=== PATIENT | female | born 1930 | race Caucasian/White ===

== ENCOUNTER 2017-03-19 12:08 | Emergency (ER) | payer MEDICARE ==
[2017-03-19 12:14] VITALS: TEMP 97.1
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
--- NOTE | 2017-03-19 12:56 | XR ---
EXAMINATION TYPE: XR chest 2V DATE OF EXAM: 03/19/2017 COMPARISON: 06/13/2015 HISTORY: Shortness of breath TECHNIQUE: Frontal and lateral views of the chest are obtained. FINDINGS: Scattered senescent parenchymal changes noted. Hyperinflation compatible with COPD. No evidence for infiltrate. No evidence for atelectasis. Chronic elevation right hemidiaphragm. Heart size is stable. Mediastinal structures are stable and grossly unremarkable. No evidence for hilar prominence. Degenerative changes dorsal spine. IMPRESSION: 1. No evidence for acute pulmonary disease.
[2017-03-19] MEDS ORDERED: HYDROcodone/APAP 5-325MG 1 EACH TAB PO STA (13:01)
[2017-03-19 13:09] VITALS: BP 164/79; PULSE 84; RESP 16
== END 2017-03-19 13:03 | disposition home or self-care (01) ==
LOC: EC 12:08
DX: R07.89 Other chest pain (principal); F41.9 Anxiety disorder, unspecified; K21.9 Gastro-esophageal reflux disease without esophagitis; E78.5 Hyperlipidemia, unspecified; I10 Essential (primary) hypertension; E07.9 Disorder of thyroid, unspecified; F32.9 Major depressive disorder, single episode, unspecified; Z79.82 Long term (current) use of aspirin; Z79.899 Other long term (current) drug therapy; Z88.5 Allergy status to narcotic agent; V49.9XXA Car occupant (driver) (passenger) injured in unspecified traffic accident, initial encounter; Y92.410 Unspecified street and highway as the place of occurrence of the external cause
CPT/HCPCS: 71020; 99284

== ENCOUNTER → 2018-01-01 | Outpatient (CLI) | payer MEDICARE, OTHER ==
[~2018-01-01] MED LIST: SODIUM CHLORIDE 0.9% 500 ML in EMPTY BAG 1 BAG IV PRN; ZOLEDRONIC ACID 5 MG in SODIUM CHLORIDE 0.9% 100 ML IV NR
[2018-01-01 11:10] VITALS: BP 134/77; PULSE 85; RESP 16; TEMP 97.7
== END | disposition home or self-care (01) ==
LOC: PROCWHC3 10:50
PROVIDERS: ATTEND Family Medicine
DX: M81.0 Age-related osteoporosis without current pathological fracture (principal)
CPT/HCPCS: 96365; J3489

== ENCOUNTER 2018-11-06 14:03 | Inpatient (IN) | payer MEDICARE ==
[2018-11-06] MEDS ORDERED: MORPHINE SULFATE 2 MG/ML SYRINGE IM STA (15:03)
[2018-11-06] MEDS ORDERED: ONDANSETRON ODT 4 MG TAB PO STA (15:06)
--- NOTE | 2018-11-06 15:11 | ED ---
Back Pain HPI - General Chief Complaint: Back Pain/Injury Stated Complaint: Back pain Time Seen by Provider: 11/06/18 14:55 Source: patient Limitations: physical limitation - History of Present Illness Initial Comments: Patient is a 88-year-old female here with her daughter presenting with complaints of low back pain for almost 2 weeks. Patient has history of severe osteoporosis and states she has had numerous fractures of her lumbar spine and also has a plate and screws in her lumbar area. Patient states she went to lift a jug of juice on October 25 and has been having increasing pain since then. Patient has been trying to take tramadol and Tylenol for pain relief and they are not helping. Patient is getting to the point where she is no longer eating, drinking, sleeping very much because of the pain. Patient admits to her toes feeling "a little different". Patient denies any numbness and tingling into her lower legs or loss of bladder/ bowel control. Patient denies fever, chills, nausea, vomiting. No other complaints at this time. - Related Data Home Medications Medication Instructions Recorded Confirmed Lovastatin [Mevacor] 20 mg PO HS 01/06/14 11/06/18 Aspirin 81 mg PO HS 06/15/15 11/06/18 Multivit with Calcium,Iron,Min 1 tab PO DAILY 06/15/15 11/06/18 [Women's Daily Multivitamin] Acetaminophen/Diphenhydramine 1 tab PO HS PRN 03/19/17 11/06/18 [Tylenol PM 500-25mg] Levothyroxine Sodium [Synthroid] 100 mcg PO DAILY 03/19/17 11/06/18 amLODIPine BESYLATE [Norvasc] 10 mg PO DAILY 03/19/17 11/06/18 Omeprazole 20 mg PO DAILY 11/06/18 11/06/18 Allergies Allergy/AdvReac Type Severity Reaction Status Date / Time codeine AdvReac Hallucinati Verified 11/06/18 15:25 ons Review of Systems ROS Statement: Those systems with pertinent positive or pertinent negative responses have been documented in the HPI. ROS Other: All systems not noted in ROS Statement are negative. Past Medical History Past Medical History: GERD/Reflux, Hyperlipidemia, Hypertension, Thyroid Disorder Additional Past Medical History / Comment(s): T11 compression fx 05-22-15,osteoporsis History of Any Multi-Drug Resistant Organisms: None Reported Past Surgical History: Back Surgery Additional Past Surgical History / Comment(s): ORIF Lt wrist, spinal fusion,lumbar laminectomy,addison cataract, 06-18-15 KYPHOPLASTY. Past Anesthesia/Blood Transfusion Reactions: No Reported Reaction Additional Past Anesthesia/Blood Transfusion Reaction / Comment(s): no hx blood transfusion Past Psychological History: Anxiety, Depression Smoking Status: Former smoker Past Alcohol Use History: None Reported Past Drug Use History: None Reported - Past Family History Son(s) Additional Family Medical History / Comment(s): after tonsil surgery as a child Mother Family Medical History: Cancer, CVA/TIA, Diabetes Mellitus, Thyroid Disorder Additional Family Medical History / Comment(s): heart problems Father Family Medical History: Diabetes Mellitus Additional Family Medical History / Comment(s): heart problems General Exam - General Exam Comments Initial Comments: GENERAL: Well-appearing, well-nourished and in no acute distress, but appears in pain. HEAD: Atraumatic, normocephalic. EYES: Pupils equal round and reactive to light, extraocular movements intact, sclera anicteric, conjunctiva are normal. ENT: TMs normal, nares patent, oropharynx clear without exudates. Moist mucous membranes. NECK: Normal range of motion, supple without lymphadenopathy or JVD. LUNGS: Breath sounds clear to auscultation bilaterally and equal. No wheezes rales or rhonchi. HEART: Regular rate and rhythm without murmurs, rubs or gallops. ABDOMEN: Soft, nontender, normoactive bowel sounds. No guarding, no rebound. No masses appreciated. : Deferred EXTREMITIES: Normal range of motion, no pitting or edema. No clubbing or cyanosis. Normal sensation bilateral lower extremity. 5 out of 5 strength bilateral LE. Pain with palpation on the lumbar spine. Patient has decreased range of motion secondary to pain. NEUROLOGICAL: Cranial nerves II through XII grossly intact. Normal speech. PSYCH: Normal mood, normal affect. SKIN: Warm, Dry, normal turgor, no rashes or lesions noted. Limitations: physical limitation Course Vital Signs 11/06/18 11/06/18 11/06/18 14:09 18:09 19:15 Temperature 97.4 F L Pulse Rate 95 85 Respiratory 18 17 18 Rate Blood Pressure 121/74 155/71 O2 Sat by Pulse 96 92 L Oximetry 11/06/18 19:18 Temperature 98.2 F Pulse Rate 89 Respiratory 18 Rate Blood Pressure 147/99 O2 Sat by Pulse 98 Oximetry Medical Decision Making - Medical Decision Making patient is a 88-year-old female with complaints of low back pain 2 weeks. Patient has severe osteoporosis and has had a number of lumbar fractures and surgeries in the past. Patient states she picked up a jug of juice approximately 2 weeks ago and has been having increasing pain since then. Patient's daughter is here with her and states she has not been able to move around as much, dress herself, and her pain medication has not been helping. On exam patient is very tender lumbar region. Patient states she also a "weird f eeling in her toes". Patient has equal bilateral sensational lower extremities. 5 out of 5 strength of the lower extremities, although painful. Patient denies loss of bowel or bladder control. X-rays of the lumbar spine show interval osteoporotic compression fractures. Case was discussed with Dr. Mora and patient will be admitted secondary to compression fractures and increasing and back pain. Patient was accepted by Dr. Montenegro. Patient and daughter are in agreement with this plan. Disposition Clinical Impression: Fracture of lumbar vertebra, compression, Osteoporosis, Low back pain Disposition: ADMITTED IP TO THIS [facility] Condition: Stable Is patient prescribed a controlled substance at d/c from ED?: No Decision Date: 11/06/18 Decision Time: 17:55
--- NOTE | 2018-11-06 15:45 | XR ---
Lumbar spine HISTORY: Pain 3 views of the lumbar spine correlated to prior exam 05/25/2015 Vertebroplasty changes present at L1, T10. Posterior fusion noted L4-5 as on previous exam with inter vertebral spacing block. Bone mineralization is low which may limit sensitivity. There is superior en dplate depression at L3 which is developed in the interval loss of height of 25%. Loss of height also present superior endplate T11 and T12, T8. There is some spondylosis, loss of disc height L3-4. Lame llated calcification in the right upper quadrant may be due to gallstone. IMPRESSION: Interval osteoporotic compression fractures. Postop changes.
[2018-11-06] MEDS ORDERED: ONDANSETRON 4 MG/2 ML VIAL IVP PRN (17:53)
[2018-11-06] MEDS ORDERED: NALOXONE 0.4 MG/ML 1 ML VIAL IV PRN (17:53)
[2018-11-06] MEDS: SODIUM CHLORIDE 0.9% 1,000 ML IV SCH (19:38)
[2018-11-06 20:03] VITALS: BMI 23.3
[2018-11-06] MEDS: ATORVASTATIN 10 MG TAB PO SCH (22:21)
[2018-11-06] MEDS: MORPHINE SULFATE 4 MG/ML SYRINGE IV PRN (22:21)
[2018-11-07] MEDS: LEVOTHYROXINE 100 MCG TAB PO SCH (05:31)
--- NOTE | 2018-11-07 13:50 | CT ---
EXAMINATION TYPE: CT lumbar spine wo con DATE OF EXAM: 11/07/2018 COMPARISON: Plain films from 11/06/2018 as well as 05/25/15 HISTORY: Back pain CT DLP: 695.[address] of the lumbar spine was performed. Bone and soft tissue window settings are submitted as well as coronal and sagittal reconstructions. L1-L2: Vertebroplasty changes redemonstrated of L1. Stable loss of height noted dating back to 2016. Moderate degenerative disc space narrowing. Posterior disc bulge mildly effaces the ventral thecal sa c. No evidence for central stenosis or lateral recess stenosis. Right-sided foraminal encroachment. L2-L3: Moderate degenerative disc space narrowing. Moderately severe circumferential disc bulge great est posteriorly. Hypertrophy ligamentum flavum and facet joint arthropathy resulting in severe centra l stenosis. Bilateral foraminal encroachment. L3-L4: Mild loss of superior endplate of L3 estimated at 20%. No evidence for bony retropulsion or arely ny destructive process. Age and etiology indeterminate. No evidence for central stenosis or disc nelson iation. L4-L5: Postoperative changes of lumbar laminectomy and fusion. Pedicular screws resultant extensive s treak artifact limiting evaluation. No definite evidence for recurrent disease although limited in ev aluation. L5-S1: Postoperative changes of lumbar laminectomy with pedicular screws in place. Intervertebral bod y spacers noted. There is grade 1 anterolisthesis of L5 on S1 of 4 mm. No definite recurrent or resid ual disease. No paraspinal masses are identified. Lumbar segments are free if fracture. IMPRESSION: 1. Mild superior endplate compression fracture of L3 of uncertain age and/or etiology. No bony retrop ulsion identified. 2. 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 3. Postoperative changes of lumbar laminectomy and fusion at L4-5 and L5-S1 remains stable.
[2018-11-07] MEDS: MORPHINE SULFATE 4 MG/ML SYRINGE IV PRN (15:46)
[2018-11-07] MEDS: SODIUM CHLORIDE 0.9% 1,000 ML IV SCH (15:46)
[2018-11-07] MEDS: ATORVASTATIN 10 MG TAB PO SCH (20:23)
[2018-11-07] MEDS: ASPIRIN 81 MG PO SCH (20:23)
[2018-11-07] MEDS ORDERED: ATORVASTATIN 10 MG TAB PO SCH (21:00)
[2018-11-07] MEDS: MELATONIN 5 MG TABLET PO PRN (23:50)
[2018-11-08] MEDS: LEVOTHYROXINE 100 MCG TAB PO SCH (05:29)
[2018-11-08] MEDS: SODIUM CHLORIDE 0.9% 1,000 ML IV SCH (05:29)
[2018-11-08] MEDS: amLODIPine 10 MG TAB PO SCH (08:25)
[2018-11-08] MEDS: LIDOCAINE 5% PATCH TOPICAL SCH (08:26)
[2018-11-08] MEDS: PANTOPRAZOLE 40 MG TABLET PO SCH (08:26)
[2018-11-08] MEDS: MULTIVITAMINS, THERA 1 EACH TAB PO SCH (08:26)
--- NOTE | 2018-11-08 11:10 | P.CNOR ---
History of Present Illness - [facility] Consult date: 11/08/18 Consult reason: low back pain History of present illness: This is an 88-year-old female who is known to our practice with history of multiple compression fractures in the past. She has had kyphoplasty's and lumba r fusion the past. She lifted a large type of juice about 2 weeks ago and had pain to her low back. She states the pain has become increasingly worse over the past week or so. She has pain with ambulation. She reports no bowel or bladder changes. She is admitted to [facility] for further evaluation. Computed tomography scan and lumbar x-rays reveal a new compression deformity to L3. We're consulted for orthopedic evaluation. Past Medical History Past Medical History: GERD/Reflux, Hyperlipidemia, Hypertension, Thyroid Disorder Additional Past Medical History / Comment(s): T11 compression fx 05-22-15,osteoporsis History of Any Multi-Drug Resistant Organisms: None Reported Past Surgical History: Back Surgery Additional Past Surgical History / Comment(s): ORIF Lt wrist, spinal fusion,lumbar laminectomy,addison cataract, 06-18-15 KYPHOPLASTY. Past Anesthesia/Blood Transfusion Reactions: No Reported Reaction Additional Past Anesthesia/Blood Transfusion Reaction / Comm: no hx blood tr ansfusion Past Psychological History: Anxiety, Depression Smoking Status: Former smoker Past Alcohol Use History: None Reported Past Drug Use History: None Reported - Past Family History Son(s) Additional Family Medical History / Comment(s): after tonsil surgery as a child Mother Family Medical History: Cancer, CVA/TIA, Diabetes Mellitus, Thyroid Disorder Additional Family Medical History / Comment(s): heart problems Father Family Medical History: Diabetes Mellitus Additional Family Medical History / Comment(s): heart problems Medications and Allergies Home Medications Medication Instructions Recorded Confirmed Type Lovastatin [Mevacor] 20 mg PO HS 01/06/14 11/06/18 History Aspirin 81 mg PO HS 06/15/15 11/06/18 History Multivit with Calcium,Iron,Min 1 tab PO DAILY 06/15/15 11/06/18 History [Women's Daily Multivitamin] Acetaminophen/Diphenhydramine 1 tab PO HS PRN 03/19/17 11/06/18 History [Tylenol PM 500-25mg] Levothyroxine Sodium [Synthroid] 100 mcg PO DAILY 03/19/17 11/06/18 History amLODIPine BESYLATE [Norvasc] 10 mg PO DAILY 03/19/17 11/06/18 History Omeprazole 20 mg PO DAILY 11/06/18 11/06/18 History Allergies Allergy/AdvReac Type Severity Reaction Status Date / Time avelino Shortinati Verified 11/06/18 15:25 ons Physical Examination This is a pleasant 88-year-old female in no acute distress. She is alert and oriented at this time. Her family is present at bedside. Exam of the lumbar spine reveals a pain patch in place over the mid to low lumbar region. There is pain on palpation about the mid lumbar region. She is able to move her legs freely in bed. She has full foot and ankle motion without difficulty. She has good dorsiflexion of the great toe against resistance. Neurovascular status to the lower extremity is intact. Results X-ray and computed tomography scan reveal multiple levels of prior kyphoplasty and a L4 5 lumbar fusion. There is a new superior endplate compression fracture L3 with mild compression. No retropulsion noted. Assessment and Plan (1) Fracture of lumbar vertebra, compression Current Visit: Yes Status: Acute Code(s): S32.000A - WEDGE COMPRESSION FRACTURE OF UNSP LUMBAR VERTEBRA, INIT SNOMED Code(s): 364039631 (2) Low back pain Current Visit: Yes Status: Acute Code(s): M54.5 - LOW BACK PAIN SNOMED Code(s): 582890874 (3) Osteoporosis Current Visit: Yes Status: Acute Code(s): M81.0 - AGE-RELATED OSTEOPOROSIS W /O CURRENT PATHOLOGICAL FRACTURE SNOMED Code(s): 43549513 Plan: The clinical and x-ray findings are discussed with the patient and her family. She has a TLSO brace currently which she is encouraged to wear for comfort whenever she is up. I will review the case with Dr. Burciaga when he returns. He will discuss further options such as possible kyphoplasty.
[2018-11-08] MEDS: MORPHINE SULFATE 4 MG/ML SYRINGE IV PRN (12:17)
--- NOTE | 2018-11-08 14:19 | P.HPIM ---
History of Present Illness Chief Complaint: Back pain This very pleasant 88-year-old female with a history significant for multiple compound compression fractures in the past she apparently has had kyphoplasty in the past. She said that she was lifting large juice pitcher about 2 weeks ago and started having pain in her lower back. The patient said the pain was gradually worsening over the past week or so more more with exertion and with ambulation. She was not able to bear the pain and this came into the ER for further admission and management. The patient does not complain of any weakness in the legs, no bowel or bladder incontinence, no saddle anesthesia. She otherwise does not complain of any chest pain racing heart, no cough no shortness of breath, no abdominal pain, nausea and vomiting, no diarrhea constipation, no tingling numbness of any extremities, no itch or rash X-ray done in the ER showed new compression deformity to the L3. Patient was given pain medications and admitted to the hospitalist service a further evaluation and management Review of Systems All systems: negative Past Medical History Past Medical History: GERD/Reflux, Hyperlipidemia, Hypertension, Thyroid Disorder Additional Past Medical History / Comment(s): T11 compression fx 05-22-15,osteoporsis History of Any Multi-Drug Resistant Organisms: None Reported Past Surgical History: Back Surgery Additional Past Surgical History / Comment(s): ORIF Lt wrist, spinal fusion,lumbar laminectomy,addison cataract, 06-18-15 KYPHOPLASTY. Past Anesthesia/Blood Transfusion Reactions: No Reported Reaction Additional Past Anesthesia/Blood Transfusion Reaction / Comment(s): no hx blood transfusion Past Psychological History: Anxiety, Depression Smoking Status: Former smoker Past Alcohol Use History: None Reported Past Drug Use History: None Reported - Past Family History Son(s) Additional Family Medical History / Comment(s): after tonsil surgery as a child Mother Family Medical History: Cancer, CVA/TIA, Diabetes Mellitus, Thyroid Disorder Additional Family Medical History / Comment(s): heart problems Father Family Medical History: Diabetes Mellitus Additional Family Medical History / Comment(s): heart problems Medications and Allergies Home Medications Medication Instructions Recorded Confirmed Type Lovastatin [Mevacor] 20 mg PO HS 01/06/14 11/06/18 History Aspirin 81 mg PO HS 06/15/15 11/06/18 History Multivit with Calcium,Iron,Min 1 tab PO DAILY 06/15/15 11/06/18 History [Women's Daily Multivitamin] Acetaminophen/Diphenhydramine 1 tab PO HS PRN 03/19/17 11/06/18 History [Tylenol PM 500-25mg] Levothyroxine Sodium [Synthroid] 100 mcg PO DAILY 03/19/17 11/06/18 History amLODIPine BESYLATE [Norvasc] 10 mg PO DAILY 03/19/17 11/06/18 History Omeprazole 20 mg PO DAILY 11/06/18 11/06/18 History Docusate [Colace] 100 mg PO DAILY PRN #30 capsule 11/08/18 Rx HYDROcodone/APAP 7.5-325MG [[place] 1 tab PO Q4H PRN 3 Days #18 tab 11/08/18 Rx 7.5-325] Lidocaine 5% Patch [Lidoderm 5% 1 patch TOPICAL DAILY #7 patch 11/08/18 Rx Patch] Allergies Allergy/AdvReac Type Severity Reaction Status Date / Time codeine AdvReac Hallucinati Verified 11/06/18 15:25 ons Physical Exam Vitals: Vital Signs Temp Pulse Resp BP Pulse Ox 11/08/18 08:00 85 11/08/18 07:00 98 F 85 16 147/76 98 11/08/18 03:18 16 11/08/18 01:14 97.9 F 76 18 157/84 96 11/08/18 00:20 18 11/07/18 18:57 98.4 F 63 18 122/73 95 11/07/18 15:13 98.3 F 87 122/79 95 Intake and Output 11/07/18 11/08/18 11/08/18 22:59 06:59 14:59 Intake Total 600 720 Balance 600 720 Intake: Intake, IV Titration 600 Amount Sodium Chloride 0.9% 1, 600 000 ml @ 50 mls/hr IV . Q20H [facility] Rx#:[id number] Oral 720 Other: Voiding Method Bedpan # Voids 1 1 On exam, alert and oriented x3. HEENT: Conjunctivae normal. eyes normal. NECK: No JVD. No thyroid enlargement. No LNs CARDIOVASCULAR: S1, S2 muffled. No murmur RESPIRATION: Breath sounds diminished in the bases. No rhonchi or crackles. No bronchial breathing. ABDOMEN: Soft, nontender . No guarding. no masses palpable. No ascites, No hepatosplenomegaly.Bowel sounds heard. LEGS: No edema. no swelling NERVOUS SYSTEM: Cranial N 2-12 grossly normal. Moves all 4 limbs. No focal deficits. No sensory deficit. No signs of cerebellar dysfucntion. Skin: no ulcer no rash Joints: No active swelling. No inflammation. The patient is having back pain in the lumbar spine. Lymphatic system. No LN neck axilla or groin. Thrombosis Risk Factor Assmnt - Choose All That Apply Other Risk Factors: Yes Each Risk Factor Represents 3 Points: Age 75 years or older Thrombosis Risk Factor Assessment Total Risk Factor Score: 3 Thrombosis Risk Factor Assessment Level: Moderate Risk Assessment and Plan Assessment: - Lumbar compression fracture - Back pain probably because of #1 - Osteoporosis - Hypertension - Hyperlipidemia - Thyroid disorder - History of GERD - History of fractures before status post kyphoplasty Plan - We will admit the patient to MedSurg with telemetry under observation - We'll continue morphine for pain control - We'll add Lidoderm patch - We'll consult orthopedic surgery for the recommendations - We'll consult PT OT and case management for possible rehab placement - DVT and GI prophylaxis - We'll order for lab work in the morning - Patient is an observation - Patient is full code Time with Patient: Greater than 30
--- NOTE | 2018-11-08 14:23 | P.DS ---
Providers Date of admission: 11/06/18 17:42 Expected date of discharge: 11/08/18 Attending physician: Laurence Montenegro Consults: 11/07/18 12:56 Consult Physician Routine Consulting Provider: Miguel Quinn Consult Reason/Comments: back pain Do you want consulting provider notified?: Yes Primary care physician: Marva Benites [facility] Course: Discharge diagnosis - Lumbar compression fracture - Back pain probably because of #1 - Osteoporosis - Hypertension - Hyperlipidemia - Thyroid disorder - History of GERD - History of fractures before status post kyphoplasty Hospital course This very pleasant 88-year-old female with a history significant for multiple compound compression fractures in the past she apparently has had kyphoplasty in the past. She said that she was lifting large juice pitcher about 2 weeks ago and started having pain in her lower back. The patient said the pain was gradually worsening over the past week or so more more with exertion and with ambulation. She was not able to bear the pain and this came into the ER for further admission and management. The patient does not complain of any weakness in the legs, no bowel or bladder incontinence, no saddle anesthesia. She otherwise does not complain of any chest pain racing heart, no cough no shortness of breath, no abdominal pain, nausea and vomiting, no diarrhea constipation, no tingling numbness of any extremities, no itch or rash X-ray done in the ER showed new compression deformity to the L3. Patient was given pain medications and admitted to the hospitalist service a further evaluation and management Computed tomography scan was ordered which showed a similar findings Patient was seen by orthopedic surgery who suggested brace and then patient can go to rehab and follow with Dr. Rosales as an outpatient On 11/08/2018 Patient says that her pain is much better controlled She's feeling sleepy since she had her walk this morning with a PT OT On exam, alert and oriented x3. HEENT: Conjunctivae normal. eyes normal. NECK: No JVD. No thyroid enlargement. No LNs CARDIOVASCULAR: S1, S2 muffled. No murmur RESPIRATION: Breath sounds diminished in the bases. No rhonchi or crackles. No bronchial breathing. ABDOMEN: Soft, nontender . No guarding. no masses palpable. No ascites, No hepatosplenomegaly.Bowel sounds heard. LEGS: No edema. no swelling NERVOUS SYSTEM: Cranial N 2-12 grossly normal. Moves all 4 limbs. No focal deficits. No sensory deficit. No signs of cerebellar dysfucntion. Skin: no ulcer no rash Joints: No active swelling. No inflammation. The patient is having back pain in the lumbar spine. Lymphatic system. No LN neck axilla or groin. Patient came in discharge when cleared by orthopedic surgery We'll put her on some pain medications and lateral patch Patient is to follow with Dr. quinn in as an outpatient within a week. Patient to call and make an appointment Patient Condition at Discharge: Stable Plan - Discharge Summary Discharge Rx Participant: No New Discharge Prescriptions: New Docusate [Colace] 100 mg PO DAILY PRN #30 capsule PRN Reason: Constipation Lidocaine 5% Patch [Lidoderm 5% Patch] 1 patch TOPICAL DAILY #7 patch HYDROcodone/APAP 7.5-325MG [[place] 7.5-325] 1 tab PO Q4H PRN 3 Days #18 tab PRN Reason: Pain Continue Lovastatin [Mevacor] 20 mg PO HS Multivit with Calcium,Iron,Min [Women's Daily Multivitamin] 1 tab PO DAILY Aspirin 81 mg PO HS Acetaminophen/Diphenhydramine [Tylenol PM 500-25mg] 1 tab PO HS PRN PRN Reason: Pain amLODIPine BESYLATE [Norvasc] 10 mg PO DAILY Levothyroxine Sodium [Synthroid] 100 mcg PO DAILY Omeprazole 20 mg PO DAILY Discharge Medication List Lovastatin [Mevacor] 20 mg PO HS 01/06/14 [History] Aspirin 81 mg PO HS 06/15/15 [History] Multivit with Calcium,Iron,Min [Women's Daily Multivitamin] 1 tab PO DAILY 06/15/15 [History] Acetaminophen/Diphenhydramine [Tylenol PM 500-25mg] 1 tab PO HS PRN 03/19/17 [History] Levothyroxine Sodium [Synthroid] 100 mcg PO DAILY 03/19/17 [History] amLODIPine BESYLATE [Norvasc] 10 mg PO DAILY 03/19/17 [History] Omeprazole 20 mg PO DAILY 11/06/18 [History] Docusate [Colace] 100 mg PO DAILY PRN #30 capsule 11/08/18 [Rx] HYDROcodone/APAP 7.5-325MG [[place] 7.5-325] 1 tab PO Q4H PRN 3 Days #18 tab 07/18/19 [Rx] Lidocaine 5% Patch [Lidoderm 5% Patch] 1 patch TOPICAL DAILY #7 patch 11/08/18 [Rx] Follow up Appointment(s)/Referral(s): Marva Benites MD [Primary Care Provider] - 1-2 days
[2018-11-08] MEDS: traMADol 50 MG TAB PO PRN (17:48)
[2018-11-08] MEDS: ATORVASTATIN 10 MG TAB PO SCH (20:37)
[2018-11-08] MEDS: ASPIRIN 81 MG PO SCH (20:37)
[2018-11-08] MEDS: MELATONIN 5 MG TABLET PO PRN (22:51)
[2018-11-09] MEDS: SODIUM CHLORIDE 0.9% 1,000 ML IV SCH (07:31)
[2018-11-09] MEDS: LEVOTHYROXINE 100 MCG TAB PO SCH (07:35)
[2018-11-09] MEDS: PANTOPRAZOLE 40 MG TABLET PO SCH (07:35)
[2018-11-09] MEDS: traMADol 50 MG TAB PO PRN ×2 (07:40→17:38)
[2018-11-09] MEDS: MULTIVITAMINS, THERA 1 EACH TAB PO SCH (09:27)
[2018-11-09] MEDS: amLODIPine 10 MG TAB PO SCH (09:27)
[2018-11-09] MEDS: LIDOCAINE 5% PATCH TOPICAL SCH (09:27)
--- NOTE | 2018-11-09 10:54 | P.PN ---
Subjective This very pleasant 88-year-old female with a history significant for multiple compound compression fractures in the past she apparently has had kyphoplasty in the past. She said that she was lifting large juice pitcher about 2 weeks ago and started having pain in her lower back. The patient said the pain was gradually worsening over the past week or so more more with exertion and with ambulation. She was not able to bear the pain and this came into the ER for further admission and management. The patient does not complain of any weakness in the legs, no bowel or bladder incontinence, no saddle anesthesia. She otherwise does not complain of any chest pain racing heart, no cough no shortness of breath, no abdominal pain, nausea and vomiting, no diarrhea constipation, no tingling numbness of any extremities, no itch or rash X-ray done in the ER showed new compression deformity to the L3. Patient was given pain medications and admitted to the hospitalist service a further evaluation and management. 11/09/2018 Patient says the pain is controlled with tramadol and Lidoderm patch She sitting up on the chair with the brace on Objective - Vital Signs Vital signs: Vital Signs Temp 97.9 F 11/09/18 07:00 Pulse 84 11/09/18 07:00 Resp 16 11/09/18 07:00 BP 133/75 11/09/18 07:00 Pulse Ox 94 L 11/09/18 07:00 Intake & Output 11/08/18 11/09/18 11/09/18 18:59 06:59 18:59 Intake Total 720 500 240 Balance 720 500 240 Intake: Intake, IV Titration 500 Amount Sodium Chloride 0.9% 1, 500 000 ml @ 50 mls/hr IV . Q20H [facility] Rx#:[id number] Oral 720 240 Other: # Voids 3 1 - Exam On exam, alert and oriented x3. HEENT: Conjunctivae normal. eyes normal. NECK: No JVD. No thyroid enlargement. No LNs CARDIOVASCULAR: S1, S2 muffled. No murmur RESPIRATION: Breath sounds diminished in the bases. No rhonchi or crackles. No bronchial breathing. ABDOMEN: Soft, nontender . No guarding. no masses palpable. No ascites, No hepatosplenomegaly.Bowel sounds heard. LEGS: No edema. no swelling NERVOUS SYSTEM: Cranial N 2-12 grossly normal. Moves all 4 limbs. No focal deficits. No sensory deficit. No signs of cerebellar dysfucntion. Skin: no ulcer no rash . Assessment and Plan Assessment: - Lumbar compression fracture - Back pain probably because of #1 - Osteoporosis - Hypertension - Hyperlipidemia - Thyroid disorder - History of GERD - History of fractures before status post kyphoplasty Plan - We will admit the patient to [facility] with telemetry under observation - We'll continue morphine for pain control - We'll add Lidoderm patch - We'll consult orthopedic surgery for the recommendations - We'll consult PT OT and case management for possible rehab placement - DVT and GI prophylaxis - We'll order for lab work in the morning - Patient is an observation - Patient is full code 11/09/2018 -Awaiting authorization from the insurance to go to the rehab - Continue pain control - Patient to be discharged and then have kyphoplasty as an outpatient if possible - We'll follow up on the patient
[2018-11-09 11:26] LABS: Basophils % (A) 1 %; Eosinophils # (A) 0.1 k/uL (0-0.7); Eosinophils % (A) 2 %; HCT 42.2 % (34.0-46.0); HGB 13.4 gm/dL (11.4-16.0); Lymphocytes # (A) 1.1 k/uL (1.0-4.8); Lymphocytes % (A) 15 %; MCHC 31.8 g/dL (31.0-37.0); MCV 88.1 fL (80.0-100.0); Mean Platelet Volume 6.9; Monocytes # (A) 0.4 k/uL (0-1.0); Monocytes % (A) 5 %; Neutrophils # (A) 5.6 k/uL (1.3-7.7); Neutrophils % (A) 77 %; Platelet Count 332 k/uL (150-450); RBC 4.78 m/uL (3.80-5.40); RDW 14.1 % (11.5-15.5); WBC 7.3 k/uL (3.8-10.6)
[2018-11-09 11:30] LABS: African American GFR (CKD) >90 (>60 ml/min/1.73 sqM); Anion Gap 9 mmol/L; Blood Urea Nitrogen 12 mg/dL (7-17); Calcium 9.4 mg/dL (8.4-10.2); Carbon Dioxide 26 mmol/L (22-30); Chloride 99 mmol/L (98-107); Glucose 117 mg/dL (74-99); Potassium 4.2 mmol/L (3.5-5.1); Sodium 134 mmol/L (137-145)
--- NOTE | 2018-11-09 13:27 | P.PN ---
Subjective Progress Note Date: 11/09/18 Principal diagnosis: L3 compression fracture Multiple medical comorbidities. This is an 88-year-old female with history of multiple compression fractures in the past. She has had kyphoplasty in the past. She has a new L3 compression deformity with significant pain. She was encouraged to wear her brace that she heard he has at home. The patient and family are requesting evaluation for possible kyphoplasty. I have discussed the case with Dr. Burciaga who is currently out of town but is agreeable to kyphoplasty on 11/12/2018. The patient's pain is unchanged from yesterday's evaluation. She reports no new neurologic deficits. Objective - Vital Signs Vital signs: Vital Signs Temp 97.9 F 11/09/18 07:00 Pulse 84 11/09/18 07:00 Resp 16 11/09/18 07:00 BP 133/75 11/09/18 07:00 Pulse Ox 94 L 11/09/18 07:00 Intake & Output 11/08/18 11/09/18 11/09/18 18:59 06:59 18:59 Intake Total 720 500 240 Balance 720 500 240 Intake: Intake, IV Titration 500 Amount Sodium Chloride 0.9% 1, 500 000 ml @ 50 mls/hr IV . Q20H [facility] Rx#:[id number] Oral 720 240 Other: # Voids 3 1 - Exam This is a pleasant 88-year-old female in no acute distress. She is alert and oriented at this time. Her family is present at bedside. Pain with palpation about the mid lumbar region. She has full motion of the lower extremities without difficulty. Full foot and ankle motion with good strength. Neurovascular status to the lower extremities intact. No neuro deficits noted. - Labs CBC & Chem 7: 11/09/18 10:53 11/09/18 10:53 Labs: Abnormal Lab Results - Last 24 Hours (Table) 11/09/18 Range/Units 10:53 Sodium 134 L (137-145) mmol/L Creatinine 0.51 L (0.52-1.04) mg/dL Glucose 117 H (74-99) mg/dL Assessment and Plan (1) Fracture of lumbar vertebra, compression Current Visit: Yes Status: Acute Code(s): S32.000A - WEDGE COMPRESSION FRACTURE OF UNSP LUMBAR VERTEBRA, INIT SNOMED Code(s): 781545076 (2) Low back pain Current Visit: Yes Status: Acute Code(s): M54.5 - LOW BACK PAIN SNOMED Code(s): 479351920 (3) Osteoporosis Current Visit: Yes Status: Acute Code(s): M81.0 - AGE-RELATED OSTEOPOROSIS W/O CURRENT PATHOLOGICAL FRACTURE SNOMED Code(s): 55064466 Plan: The clinical and x-ray findings are discussed with the patient and her family. She has a TLSO brace currently which she is encouraged to wear for comfort whenever she is up. I have spoken with Dr. Burciaga who agrees to kyphoplasty on 11/12/2018. She will go to [facility] rehab today and will return on Monday for outpatient procedure.
[2018-11-09] MEDS: ATORVASTATIN 10 MG TAB PO SCH (20:54)
[2018-11-09] MEDS: ASPIRIN 81 MG PO SCH (20:55)
[2018-11-09] MEDS: MELATONIN 5 MG TABLET PO PRN (23:05)
[2018-11-10] MEDS: SODIUM CHLORIDE 0.9% 1,000 ML IV SCH ×2 (05:33→23:48)
[2018-11-10] MEDS: LEVOTHYROXINE 100 MCG TAB PO SCH (05:50)
[2018-11-10] MEDS: PANTOPRAZOLE 40 MG TABLET PO SCH (08:22)
[2018-11-10] MEDS: amLODIPine 10 MG TAB PO SCH (08:22)
[2018-11-10] MEDS: MULTIVITAMINS, THERA 1 EACH TAB PO SCH (08:22)
[2018-11-10] MEDS: LIDOCAINE 5% PATCH TOPICAL SCH (08:22)
--- NOTE | 2018-11-10 09:10 | P.PN ---
Subjective Progress Note Date: 11/10/18 Principal diagnosis: L3 compression fracture Multiple medical comorbidities. This is an 88-year-old female with history of multiple compression fractures in the past. She has had kyphoplasty in the past. She has a new L3 compression deformity with significant pain. She was encouraged to wear her brace that she heard he has at home. The patient and family are requesting evaluation for possible kyphoplasty. I have discussed the case with Dr. Burciaga who is currently out of town but is agreeable to kyphoplasty on 11/12/2018. The patient's pain is unchanged from yesterday's evaluation. She reports no new neurologic deficits. The patient is currently awaiting transfer to inpatient rehab. However, she is scheduled for kyphoplasty on Monday. Objective - Vital Signs Vital signs: Vital Signs Temp 98.5 F 11/10/18 07:00 Pulse 82 11/10/18 07:00 Resp 15 11/10/18 07:00 BP 152/86 11/10/18 07:00 Pulse Ox 91 L 11/10/18 07:00 Intake & Output 11/09/18 11/10/18 11/10/18 18:59 06:59 18:59 Intake Total 240 200 420 Balance 240 200 420 Intake: Intake, IV Titration 200 Amount Sodium Chloride 0.9% 1, 200 000 ml @ 50 mls/hr IV . Q20H [facility] Rx#:[id number] Oral 240 420 Other: # Voids 4 3 - Exam This is a pleasant 88-year-old female in no acute distress. She is alert and oriented at this time. She is sitting up in a chair. Pain with palpation about the mid lumbar region. She has full motion of the lower extremities without difficulty. Full foot and ankle motion with good strength. Neurovascular status to the lower extremities intact. No neuro deficits noted. - Labs CBC & Chem 7: 11/09/18 10:53 11/09/18 10:53 Labs: Abnormal Lab Results - Last 24 Hours (Table) 11/09/18 Range/Units 10:53 Sodium 134 L (137-145) mmol/L Creatinine 0.51 L (0.52-1.04) mg/dL Glucose 117 H (74-99) mg/dL Assessment and Plan (1) Fracture of lumbar vertebra, compression Current Visit: Yes Status: Acute Code(s): S32.000A - WEDGE COMPRESSION FRACTURE OF UNSP LUMBAR VERTEBRA, INIT SNOMED Code(s): 471842697 (2) Low back pain Current Visit: Yes Status: Acute Code(s): M54.5 - LOW BACK PAIN SNOMED Code(s): 477925339 (3) Osteoporosis Current Visit: Yes Status: Acute Code(s): M81.0 - AGE-RELATED OSTEOPOROSIS W/O CURRENT PATHOLOGICAL FRACTURE SNOMED Code(s): 05461974 Plan: The clinical and x-ray findings are discussed with the patient. She has a TLSO brace currently which she is encouraged to wear for comfort whenever she is up. I have spoken with Dr. Burciaga who agrees to kyphoplasty on 11/12/2018. I will talk to case management to discuss keeping the patient here and change her to inpatient status possibly for surgery Monday.
--- NOTE | 2018-11-10 13:42 | P.PN ---
Subjective This is a pleasant 88 years old female with past medical history of hypertension, hyperlipidemia, hypothyroidism, osteoporosis, GERD. Presents with 3 side multiple compression fractures of the spine. Patient has been followed by orthopedic surgery while she has brace in place. Plan for her to go to kyphoplasty on this coming 11/12/2018 by orthopedic team. Currently patient is resting in bed with no chest pain or dyspnea. No change in bowel habits or abdominal pain and she is tolerating diet well. However she complains from frequent urination like every 1 hour. No dysuria. Objective - Vital Signs Vital signs: Vital Signs Temp 98.5 F 11/10/18 07:00 Pulse 82 11/10/18 07:00 Resp 15 11/10/18 07:00 BP 152/86 11/10/18 07:00 Pulse Ox 91 L 11/10/18 07:00 Intake & Output 11/09/18 11/10/18 11/10/18 18:59 06:59 18:59 Intake Total 240 200 660 Balance 240 200 660 Intake: Intake, IV Titration 200 Amount Sodium Chloride 0.9% 1, 200 000 ml @ 50 mls/hr IV . Q20H [facility] Rx#:[id number] Oral 240 660 Other: # Voids 4 3 - Exam GENERAL: The patient is alert and oriented x3, not in any acute distress. Well developed, well nourished. HEENT: Pupils are round and equally reacting to light. EOMI. No scleral icterus. No conjunctival pallor. Normocephalic, atraumatic. No pharyngeal erythema. No thyromegaly. CARDIOVASCULAR: S1 and S2 present. No murmurs, rubs, or gallops. PULMONARY: Chest is clear to auscultation, no wheezing or crackles. ABDOMEN: Soft, nontender, nondistended, normoactive bowel sounds. No palpable organomegaly. -MUSCULOSKELETAL: No joint swelling or deformity. TLSO brace is in place EXTREMITIES: No cyanosis, clubbing, or pedal edema. NEUROLOGICAL: Gross neurological examination did not reveal any focal deficits. SKIN: No rashes. - Labs CBC & Chem 7: 11/09/18 10:53 11/09/18 10:53 Assessment and Plan Assessment: Multiple compression of fracture of the spine, patient will need kyphoplasty on 11/12/2018 Frequent urination, rule out UTI. Hypertension Hyperlipidemia History of GERD Hypothyroidism Plan: This is a pleasant at 8 years old female who presents with multiple spinal fractures and frequent urination. Check UA for infection or other abnormality. The orthopedic team are following the patient closely and plan to do a kyphoplasty on this coming Monday.Labs and medication were reviewed.. Continue same treatment. Continue with symptomatic treatment. Resume home medication. Monitor lytes and vitals. DVT and GI prophylaxis. Further recommendations of the clinical course of the patient DVT prophylaxis: Subcutaneous heparin GI Prophylaxis: Protonix Prognosis is guarded
[2018-11-10 17:33] LABS: Appearance,Urine Clear (Clear); Bilirubin,Urine Negative (Negative); Blood,Urine Negative (Negative); Color,Urine Light Yellow; Glucose,Urine (UA) Negative (Negative); Ketones,Urine Negative (Negative); Leukocyte Esterase,Urine Negative (Negative); Nitrite,Urine Negative (Negative); Protein,Urine Negative (Negative); Specific Gravity,Urine 1.005 (1.001-1.035); Urobilinogen,Urine <2.0 mg/dL (<2.0)
[2018-11-10] MEDS: traMADol 50 MG TAB PO PRN (17:49)
[2018-11-10] MEDS: ATORVASTATIN 10 MG TAB PO SCH (20:20)
[2018-11-10] MEDS: HEPARIN SODIUM,PORCINE 5,000 UNIT/ML 1 ML VIAL SQ SCH (20:20)
[2018-11-10] MEDS: ASPIRIN 81 MG PO SCH (20:23)
[2018-11-10] MEDS: MELATONIN 5 MG TABLET PO PRN (23:34)
[2018-11-11] MEDS: PANTOPRAZOLE 40 MG TABLET PO SCH (07:13)
[2018-11-11] MEDS: ACETAMINOPHEN TAB 325 MG TAB PO PRN (07:13)
[2018-11-11] MEDS: LEVOTHYROXINE 100 MCG TAB PO SCH (07:13)
[2018-11-11 07:37] LABS: Basophils % (A) 0 %; Eosinophils # (A) 0.2 k/uL (0-0.7); Eosinophils % (A) 3 %; HCT 38.9 % (34.0-46.0); HGB 12.1 gm/dL (11.4-16.0); Lymphocytes % (A) 16 %; MCH 27.3 pg (25.0-35.0); MCHC 31.2 g/dL (31.0-37.0); MCV 87.6 fL (80.0-100.0); Mean Platelet Volume 7.2; Monocytes # (A) 0.4 k/uL (0-1.0); Monocytes % (A) 6 %; Neutrophils # (A) 4.5 k/uL (1.3-7.7); Neutrophils % (A) 72 %; Platelet Count 332 k/uL (150-450); RBC 4.44 m/uL (3.80-5.40); RDW 13.7 % (11.5-15.5); WBC 6.2 k/uL (3.8-10.6)
[2018-11-11 07:53] LABS: African American GFR (CKD) >90 (>60 ml/min/1.73 sqM); Anion Gap 9 mmol/L; Blood Urea Nitrogen 11 mg/dL (7-17); Calcium 9.2 mg/dL (8.4-10.2); Carbon Dioxide 26 mmol/L (22-30); Chloride 101 mmol/L (98-107); Glucose 100 mg/dL (74-99); Potassium 4.2 mmol/L (3.5-5.1); Sodium 136 mmol/L (137-145)
[2018-11-11] MEDS: amLODIPine 10 MG TAB PO SCH (09:05)
[2018-11-11] MEDS: HEPARIN SODIUM,PORCINE 5,000 UNIT/ML 1 ML VIAL SQ SCH ×2 (09:05→22:43)
[2018-11-11] MEDS: LIDOCAINE 5% PATCH TOPICAL SCH (09:05)
[2018-11-11] MEDS: MULTIVITAMINS, THERA 1 EACH TAB PO SCH (09:05)
[2018-11-11] MEDS: traMADol 50 MG TAB PO PRN ×2 (12:33→20:23)
[2018-11-11] MEDS ORDERED: LACTULOSE 20 GM/30 ML CUP PO PRN (12:40)
--- NOTE | 2018-11-11 12:43 | P.PN ---
Subjective This is a pleasant 88 years old female with past medical history of hypertension, hyperlipidemia, hypothyroidism, osteoporosis, GERD. Presents with 3 side multiple compression fractures of the spine. Patient has been followed by orthopedic surgery while she has brace in place. Plan for her to go to kyphoplasty on this coming 11/12/2018 by orthopedic team. Currently patient is resting in bed with no chest pain or dyspnea. No change in bowel habits or abdominal pain and she is tolerating diet well. However she complains from frequent urination like every 1 hour. No dysuria. 11/11/2018 Patient is awake, still complaining of from back pain, she was sitting up in the chair. No chest pain or dyspnea. Vitals stable. Labs are unremarkable. We'll add laxative. Patient is going for kyphoplasty tomorrow 11/12/2018. Discussed with the staff went to stop subcu heparin as per orthopedic team Objective - Vital Signs Vital signs: Vital Signs Temp 98.1 F 11/11/18 07:00 Pulse 82 11/11/18 07:37 Resp 16 11/11/18 07:37 BP 142/76 11/11/18 07:00 Pulse Ox 94 L 11/11/18 07:00 Intake & Output 11/10/18 11/11/18 11/11/18 18:59 06:59 18:59 Intake Total 1320 175 240 Balance 1320 175 240 Intake: Intake, IV Titration 80 175 Amount Sodium Chloride 0.9% 1, 80 175 000 ml @ 50 mls/hr IV . Q20H [facility] Rx#:[id number] Oral 1240 240 Other: Voiding Method Bedpan Toilet Toilet # Voids 2 3 3 - Exam GENERAL: The patient is alert and oriented x3, not in any acute distress. Well developed, well nourished. HEENT: Pupils are round and equally reacting to light. EOMI. No scleral icterus. No conjunctival pallor. Normocephalic, atraumatic. No pharyngeal erythema. No thyromegaly. CARDIOVASCULAR: S1 and S2 present. No murmurs, rubs, or gallops. PULMONARY: Chest is clear to auscultation, no wheezing or crackles. ABDOMEN: Soft, nontender, nondistended, normoactive bowel sounds. No palpable organomegaly. -MUSCULOSKELETAL: No joint swelling or deformity. TLSO brace is in place EXTREMITIES: No cyanosis, clubbing, or pedal edema. NEUROLOGICAL: Gross neurological examination did not reveal any focal deficits. SKIN: No rashes. - Labs CBC & Chem 7: 11/11/18 06:45 11/11/18 06:45 Labs: Abnormal Lab Results - Last 24 Hours (Table) 11/11/18 Range/Units 06:45 Sodium 136 L (137-145) mmol/L Creatinine 0.51 L (0.52-1.04) mg/dL Glucose 100 H (74-99) mg/dL Assessment and Plan Assessment: Multiple compression of fracture of the spine, patient will need kyphoplasty on 11/12/2018 Frequent urination, rule out UTI. Hypertension Hyperlipidemia History of GERD Hypothyroidism Plan: This is a pleasant at 8 years old female who presents with multiple spinal fractures and frequent urination. Check UA for infection or other abnormality. The orthopedic team are following the patient closely and plan to do a kyphoplasty on this coming Monday.Labs and medication were reviewed.. Continue same treatment. Continue with symptomatic treatment. Resume home medication. Monitor lytes and vitals. DVT and GI prophylaxis. Further recommendations of the clinical course of the patient DVT prophylaxis: Subcutaneous heparin GI Prophylaxis: Protonix Prognosis is guarded
[2018-11-11] MEDS: SENNOSIDES 8.6 MG TAB PO SCH ×2 (13:11→20:23)
[2018-11-11] MEDS: ATORVASTATIN 10 MG TAB PO SCH (20:23)
[2018-11-11] MEDS: SODIUM CHLORIDE 0.9% 1,000 ML IV SCH (22:42)
[2018-11-11] MEDS: ASPIRIN 81 MG PO SCH (22:43)
[2018-11-11] MEDS: MELATONIN 5 MG TABLET PO PRN (22:58)
[2018-11-12] MEDS: LEVOTHYROXINE 100 MCG TAB PO SCH (05:33)
[2018-11-12] MEDS: SENNOSIDES 8.6 MG TAB PO SCH (08:00)
[2018-11-12] MEDS: MULTIVITAMINS, THERA 1 EACH TAB PO SCH (08:00)
[2018-11-12] MEDS: HEPARIN SODIUM,PORCINE 5,000 UNIT/ML 1 ML VIAL SQ SCH ×3 (08:02→19:41)
[2018-11-12] MEDS: PANTOPRAZOLE 40 MG TABLET PO SCH (08:02)
[2018-11-12] MEDS: LIDOCAINE 5% PATCH TOPICAL SCH (08:10)
[2018-11-12] MEDS: amLODIPine 10 MG TAB PO SCH (08:12)
[2018-11-12] MEDS: MORPHINE SULFATE 4 MG/ML SYRINGE IV PRN (08:12)
[2018-11-12] MEDS: SODIUM CHLORIDE 0.9% 1,000 ML IV SCH ×2 (08:17→15:11)
[2018-11-12] MEDS ORDERED: IV FLUID CONTINUATION 1,000 ML IV ONE (12:21)
[2018-11-12] MEDS ORDERED: SUCCINYLCHOLINE CHLORIDE 100 MG/5 ML SYR IV ONE (12:56)
[2018-11-12] MEDS ORDERED: LIDOCAINE 1% INJ 10MG/ML (20 ML MDV) ONE (12:56)
[2018-11-12] MEDS ORDERED: ceFAZolin 1,000 MG VIAL ONE (12:56)
[2018-11-12] MEDS ORDERED: fentaNYL (PF) 50 MCG/ML 2 ML AMP ONE (12:56)
[2018-11-12] MEDS ORDERED: ePHEDrine SULFATE/0.9% NACL/PF 50 MG/5 ML SYRINGE IV ONE (12:56)
[2018-11-12] MEDS ORDERED: PROPOFOL 10 MG/ML 20 ML VIAL IV ONE (12:56)
[2018-11-12] MEDS ORDERED: SODIUM CHLORIDE 0.9% 100 ML with ceFAZolin 2,000 MG IV ONE ×2 (13:06)
[2018-11-12] MEDS ORDERED: LACTATED RINGERS 1,000 ML IV ONE ×2 (13:30)
[2018-11-12] MEDS ORDERED: LIDOCAINE 0.5%-EPI 1:200,000 50 ML VIAL SQ ONE ×2 (13:36→13:37)
[2018-11-12] MEDS ORDERED: IOPAMIDOL M200 10 ML VIAL MISCELLANE ONE (13:36)
[2018-11-12] MEDS ORDERED: MAGNESIUM HYDROXIDE 2,400 MG/10 ML CUP PO PRN (14:12)
[2018-11-12] MEDS ORDERED: BENZOCAINE/MENTHOL LOZENG 1 EACH LOZENGE MUCOUS MEM PRN (14:12)
[2018-11-12] MEDS ORDERED: ONDANSETRON 4 MG/2 ML VIAL IVP PRN (14:12)
[2018-11-12] MEDS ORDERED: HYDROmorphone 0.5 MG/0.5 ML SYRINGE IVP PRN (14:12)
[2018-11-12] MEDS ORDERED: CYCLOBENZAPRINE 5 MG TAB PO PRN (14:14)
--- NOTE | 2018-11-12 14:20 | P.OP ---
Date of Procedure: 11/12/18 Preoperative Diagnosis: Acute compression fracture L3, osteoporotic Severe low back pain and inability to ambulate Postoperative Diagnosis: Acute compression fracture L3, osteoporotic Severe low back pain and inability to ambulate Anesthesia: GETA Pathology: other (L3 vertebral body biopsy to pathology) Condition: stable Disposition: PACU Description of Procedure: BRIEF OPERATIVE NOTE Preoperative Diagnosis: Vertebral compression fractures of L3 vertebral body, acute osteoporotic Postoperative Diagnosis: Same Procedure: Kyphoplasty of L3 Vertebral body biopsy of L3 Use of biplanar fluoroscopic guidance Surgeon: Dr. Burciaga Assistant Professor Of Chemistry: Edil Collins is present throughout the entire the case persisten ce during positioning, dissection, exposure, visualization, and all crucial elements of the case as well as closure. Anesthesia: General anesthesia per Dr. Dr. Treadwell Estimated blood loss: Less than 10 mL Specimen: Vertebral body biopsy of L3 sent to pathology in formalin Complications: None apparent Components implanted: Bone cement approximately 4 mL Disposition: To recovery room in good stable condition. OPERATIVE INDICATIONS The patient has been having issues in their back since Monday of last week. The patient has been through conservative treatment with medication and relative rest but has been having worsening of her pain. She's been having inability to mobilize and get out of bed on her own due to her pain from her back.. They attempted conservative care with bracing however they're not having any benefit despite brace use. She was found have the compression fracture at L3 which was new for her which seem to be the focus of her pain and symptoms. She had been through treatment in the past for prior compression fractures and had done relatively well with prior kyphoplasty's. They continue to have significant pain and debility due to their fracture. We discussed various treatment options including surgery, and the patient wishes to proceed with surgery We discussed the risk, patient's alternatives and benefits of surgery including but not limited to, risk of bleeding risk of infection, risk of need for further surgery, risk of decreased, loss of motion, loss of function, cement extravasation, nerve damage, paralysis, heart attack, blindness and . OPERATIVE SUMMARY After discussing all the risks, patient alternatives and benefits at length, the patient elected to proceed with surgical intervention, signed informed consent, and presented for their procedure. The patient was seen and examined in the preoperative holding area and the surgical site was marked. The patient was given antibiotics and brought to the operating room. The patient was sedated and intubated by anesthesia in standard fashion. The patient was positioned on to the operating room table in a prone position on the appropriate well-padded and well molded bilateral chest rolls. We were careful to pad any bony prominences and pressure points. We were careful to maintain the patient's cervical spine and good neutral alignment and position throughout. We used 2 C-arm machines to establish biplanar fluoroscopic guidance in AP and lateral positions. We were able to localize the fractures appropriately at L3. The patient was prepped and draped in a normal standard fashion. An appropriate timeout and keystone protocol performed. We were able to proceed with the surgery. The local wound area was infiltrated with local anesthetic. An incision was made over the lateral aspect of the pedicle over the appropriate levels with a small 2 mm stab incision over the right side of L3. Intraoperative fluoroscopy was taken which showed a marker at the appropriate level. With the appropriate level positively confirmed, I was able to position a sharp trocar over the lateral aspect of the pedicle. As able to advance the trocar into the pedicle and into the posterior aspect of vertebral body being careful to avoid penetration cephalad caudad or medially. The trocar was placed appropriately into the posterior aspect of vertebral body at the appropriate levels of L3. This was confirmed with C-arm guidance. With the trocar intact I was then able to take a bone biopsy with a biopsy punch or a bony drill. The biopsy specimen was passed off to be sent to pathology in formalin. I was then able to place the kyphoplasty balloon within the vertebral body of L3. The position was checked on C-arm. I was able to inflate the balloon under low pressure and visualization with C-arm. The balloon was well enclosed within the vertebral body. The cement was prepared. With the cement at appropriate working condition the balloons were deflated and removed. I was able to place bony cement with trocar with the cement delivery device under low pressure. It had good fill within the vertebral body. There is no evidence of any extravasation of the cement posteriorly toward the canal. The cement was well contained at the appropriate levels of L3. The cement was allowed to cure appropriately. The trochars removed and final images were taken on C-arm. This showed the cement well contained within L3. We were able to proceed with closure. The wound was cleaned and dried and dressed with the appropriate dressing. The drapes were broken down. The patient was gently rolled back onto their hospital bed being careful to maintain their cervical spine and good neutral alignment and position. They were woken up by anesthesia, extubated, and brought to the recovery room in good stable condition. The patient will be admitted to the hospital for observation and for appropriate postoperative care, medical management and monitoring. We will continue to follow them closely about the postoperative course.
--- NOTE | 2018-11-12 14:29 | FL ---
Fluoroscopy History: L3 kyphoplasty. 39sec fluoro time
--- NOTE | 2018-11-12 15:33 | P.PN ---
Subjective This is a pleasant 88 years old female with past medical history of hypertension, hyperlipidemia, hypothyroidism, osteoporosis, GERD. Presents with 3 side multiple compression fractures of the spine. Patient has been followed by orthopedic surgery while she has brace in place. Plan for her to go to kyphoplasty on this coming 11/12/2018 by orthopedic team. Currently patient is resting in bed with no chest pain or dyspnea. No change in bowel habits or abdominal pain and she is tolerating diet well. However she complains from frequent urination like every 1 hour. No dysuria. 11/11/2018 Patient is awake, still complaining of from back pain, she was sitting up in the chair. No chest pain or dyspnea. Vitals stable. Labs are unremarkable. We'll add laxative. Patient is going for kyphoplasty tomorrow 11/12/2018. Discussed with the staff went to stop subcu heparin as per orthopedic team 11/12/2018 Patient is seen prior to surgery, she was awake with no new complaints. Patient underwent R on surgery with orthopedic team for kyphoplasty of L3 with vertebral body biopsy. Vitals remain stable. Of note subcutaneous heparin was stopped before the procedure/surgery. We'll give follow-up with the patient. Prognosis is guarded Objective - Vital Signs Vital signs: Vital Signs Temp 97.6 F 11/12/18 14:07 Pulse 91 11/12/18 14:56 Resp 16 11/12/18 14:56 BP 155/65 11/12/18 14:56 Pulse Ox 95 11/12/18 14:56 Intake & Output 11/11/18 11/12/18 11/12/18 18:59 06:59 18:59 Intake Total 400 350 550 Output Total 2 Balance 400 350 548 Intake: IV 550 Intake, IV Titration 160 350 Amount Sodium Chloride 0.9% 1, 160 350 000 ml @ 50 mls/hr IV . Q20H MACKENZIE Rx#:[id number] Oral 240 Output: Estimated Blood Loss 2 Other: Voiding Method Toilet Toilet Toilet # Voids 4 5 1 - Exam GENERAL: The patient is alert and oriented x3, not in any acute distress. Well developed, well nourished. HEENT: Pupils are round and equally reacting to light. EOMI. No scleral icterus. No conjunctival pallor. Normocephalic, atraumatic. No pharyngeal erythema. No thyromegaly. CARDIOVASCULAR: S1 and S2 present. No murmurs, rubs, or gallops. PULMONARY: Chest is clear to auscultation, no wheezing or crackles. ABDOMEN: Soft, nontender, nondistended, normoactive bowel sounds. No palpable organomegaly. -MUSCULOSKELETAL: No joint swelling or deformity. TLSO brace is in place EXTREMITIES: No cyanosis, clubbing, or pedal edema. NEUROLOGICAL: Gross neurological examination did not reveal any focal deficits. SKIN: No rashes. - Labs CBC & Chem 7: 11/11/18 06:45 11/11/18 06:45 Assessment and Plan Assessment: Multiple compression of fracture of the spine, status post kyphoplasty of L3 on 11/12/2018 Frequent urination, rule out UTI. Hypertension Hyperlipidemia History of GERD Hypothyroidism Plan: This is a pleasant at 8 years old female who presents with multiple spinal fractures and frequent urination. Check UA for infection or other abnormality. The orthopedic team are following the patient closely and performed kyphoplasty .Labs and medication were reviewed.. Continue same treatment. Continue with symptomatic treatment. Resume home medication. Monitor lytes and vitals. DVT and GI prophylaxis. Further recommendations of the clinical course of the patient DVT prophylaxis: Subcutaneous heparin GI Prophylaxis: Protonix Prognosis is guarded
[2018-11-12] MEDS: ASPIRIN 81 MG PO SCH (19:36)
[2018-11-12] MEDS: ATORVASTATIN 10 MG TAB PO SCH (19:36)
[2018-11-12] MEDS: HYDROcodone/APAP 5-325MG 1 EACH TAB PO PRN (19:37)
[2018-11-12] MEDS: MELATONIN 5 MG TABLET PO PRN (23:27)
[2018-11-13] MEDS: ACETAMINOPHEN TAB 325 MG TAB PO PRN (01:35)
[2018-11-13] MEDS: SODIUM CHLORIDE 0.9% 1,000 ML IV SCH ×4 (04:55→09:00)
[2018-11-13] MEDS: LEVOTHYROXINE 100 MCG TAB PO SCH (06:09)
[2018-11-13 07:48] LABS: African American GFR (CKD) >90 (>60 ml/min/1.73 sqM); Anion Gap 10 mmol/L; Blood Urea Nitrogen 8 mg/dL (7-17); Calcium 9.9 mg/dL (8.4-10.2); Carbon Dioxide 25 mmol/L (22-30); Chloride 103 mmol/L (98-107); Glucose 119 mg/dL (74-99); Sodium 138 mmol/L (137-145)
--- NOTE | 2018-11-13 08:40 | P.PN ---
Progress Note - Text Progress Note Date: 11/13/18 Patient is a very pleasant 88-year-old female who is seen and examined at bedside for follow-up evaluation in regards to her lumbar spine. She is status post L3 kyphoplasty with biopsy performed yesterday, 11/12/2018. Postoperatively she feels she has had improvement of her back pain. She was able to ambulate to the restroom on her own. She did have some difficulty with sleeping last night and feels tired this morning. She is not experiencing increased pain. She feels she is ready for discharge today. She states she would like to be discharged home but her family prefers her to be discharged to a rehabilitation facility. She would like to discuss possible discharged chart for locations and greater detail with her family. She is happy with her progress postoperatively in regards to her lumbar pain. She is a medical history of hypertension, hyperlipidemia, and hypothyroidism. Physical exam: Patient is awake, alert, and oriented 3 Vital signs stable Good chest excursion with deep inspiration and expiration Abdomen soft nontender Examination of lumbar spine reveals skin is intact with no abrasions, lacerations, or bruises; no erythema, purulence or signs of infection Dressing over the L3 kyphoplasty site is dry and intact with a small area of dried blood No significant pain with palpation over the surgical site Evidence of a well-healed incision along the midline of the lower lumbar spine Dorsiflexion, plantarflexion, and extensor hallucis longus positive sustained bilaterally Lower extremity strength 5/5 bilaterally No signs or symptoms of DVT; no calf pain No pain with internal and external rotation of the hips bilaterally Neurovascularly intact Assessment: Status post L3 kyphoplasty and biopsy for acute osteoporotic compression fracture Low back pain History of previous compression fracture deformities with kyphoplasty History lumbar fusion Plan: 1. Patient has been progressing well postoperatively in regards to her lumbar pain after undergoing L3 kyphoplasty and biopsy. She's been able to ambulate to the restroom without difficulty and on her own. At this time, she is clear for discharge from an orthopedic spine standpoint. Patient wants further discussion with her family and medicine in regards to discharge to a rehabilitation facility or to home. We discussed patient should keep dressing over the incision site dry and intact over the next 72 hours. Dressing may be removed on 11/16/2018, and she may shower without a dressing at that time. She should continue to avoid excessive bending, twisting, and lifting. She may take [place] 7.5 mg/325 mg as prescribed by another provider. She'll plan to follow up with Edil Malone PA-C or Dr. Keyon Burciaga at [facility] in approximately 2-3 weeks for further evaluation. 2. Patient will continue to be seen and examined by medicine for her other medical diagnoses.
[2018-11-13] MEDS: PANTOPRAZOLE 40 MG TABLET PO SCH (08:58)
[2018-11-13] MEDS: amLODIPine 10 MG TAB PO SCH (08:58)
[2018-11-13] MEDS: HEPARIN SODIUM,PORCINE 5,000 UNIT/ML 1 ML VIAL SQ SCH (08:58)
[2018-11-13] MEDS: LIDOCAINE 5% PATCH TOPICAL SCH (08:58)
[2018-11-13] MEDS: SENNOSIDES-DOCUSATE SODIUM 1 EACH TAB PO SCH (08:59)
[2018-11-13] MEDS: MULTIVITAMINS, THERA 1 EACH TAB PO SCH (08:59)
[2018-11-13] MEDS: traMADol 50 MG TAB PO PRN (09:05)
[2018-11-13] MEDS: ASPIRIN 81 MG PO SCH (20:55)
[2018-11-13] MEDS: ATORVASTATIN 10 MG TAB PO SCH (20:55)
[2018-11-13] MEDS: HYDROcodone/APAP 5-325MG 1 EACH TAB PO PRN (20:55)
[2018-11-13] MEDS: MELATONIN 5 MG TABLET PO PRN (23:28)
[2018-11-14] MEDS: LEVOTHYROXINE 100 MCG TAB PO SCH (06:28)
[2018-11-14] MEDS: SODIUM CHLORIDE 0.9% 1,000 ML IV SCH ×2 (06:30)
[2018-11-14 07:24] VITALS: BP 129/73; PULSE 76; RESP 17; TEMP 97.7
[2018-11-14] MEDS: SENNOSIDES-DOCUSATE SODIUM 1 EACH TAB PO SCH (08:12)
[2018-11-14] MEDS: PANTOPRAZOLE 40 MG TABLET PO SCH (08:12)
[2018-11-14] MEDS: LIDOCAINE 5% PATCH TOPICAL SCH (08:12)
[2018-11-14] MEDS: MULTIVITAMINS, THERA 1 EACH TAB PO SCH (08:12)
[2018-11-14] MEDS: amLODIPine 10 MG TAB PO SCH (08:12)
--- NOTE | 2018-11-14 09:27 | P.DS ---
Providers Date of admission: 11/10/18 09:41 Attending physician: Laurence Montenegro Consults: 11/07/18 12:56 Consult Physician Routine Consulting Provider: Miguel Burciaga Consult Reason/Comments: back pain Do you want consulting provider notified?: Yes Primary care physician: Marva Benites Hospital Course: Diagnoses: Multiple compression of fracture of the spine, status post kyphoplasty of L3 on 11/12/2018 Low back pain Frequent urination, resolved no evidence of UTI Hypertension Hyperlipidemia History of GERD Hypothyroidism Constipation Hospital course: This is a pleasant 88 years old female with past medical history of hypertension, hyperlipidemia, hypothyroidism, osteoporosis, GERD. Presents with back pain associated with multiple compression fractures of the spine at L3. Patient has been followed by orthopedic surgery. Patient underwent kyphoplasty of L3 with Vertebral body biopsy of L3 on 11/12/2018 by orthopedic team. Today is postop day #2. Her back pain improved after the surgery. She is able to ambulate and her leg strength at baseline as per confirmed with the patient. She still have some tingling in the toes. And back wound is healing. Patient is eager to go home. She denies chest pain or dyspnea. No change in urine or bowel habits. No fever. Patient had bowel movement of she and given treatment for her constipation. Patient was cleared by orthopedic team for discharge Problems and management plan were discussed with the patient and he verbalized understanding and acceptance Patient was found stable and can be discharged home however he needs follow-up as an outpatient. Patient was instructed to follow up with her PCP and orthopedic team in one week and she verbalized understanding and acceptance. Patient's agrees with the appointments and timing. 4. Physical Exam Gen: patient is a AAOx3, no distress CVS: S1-S2, RRR, no murmur Lungs: B/L CTA, no wheezing Abdomen: soft, no distention, no tenderness, positive bowel sounds Extremity: no leg edema or induration Musculoskeletal: Back wound is closed in dressing is in place at L3 spine Time spent more than 35 minutes Patient Condition at Discharge: Stable Plan - Discharge Summary Discharge Rx Participant: No New Discharge Prescriptions: New Docusate [Colace] 100 mg PO DAILY PRN #30 capsule PRN Reason: Constipation Lidocaine 5% Patch [Lidoderm 5% Patch] 1 patch TOPICAL DAILY #7 patch HYDROcodone/APAP 7.5-325MG [[place] 7.5-325] 1 tab PO Q4H PRN 3 Days #18 tab PRN Reason: Pain Continue Lovastatin [Mevacor] 20 mg PO HS Multivit with Calcium,Iron,Min [Women's Daily Multivitamin] 1 tab PO DAILY Aspirin 81 mg PO HS Acetaminophen/Diphenhydramine [Tylenol PM 500-25mg] 1 tab PO HS PRN PRN Reason: Pain amLODIPine BESYLATE [Norvasc] 10 mg PO DAILY Levothyroxine Sodium [Synthroid] 100 mcg PO DAILY Omeprazole 20 mg PO DAILY Discharge Medication List Lovastatin [Mevacor] 20 mg PO HS 01/06/14 [History] Aspirin 81 mg PO HS 06/15/15 [History] Multivit with Calcium,Iron,Min [Women's Daily Multivitamin] 1 tab PO DAILY 06/15/15 [History] Acetaminophen/Diphenhydramine [Tylenol PM 500-25mg] 1 tab PO HS PRN 03/19/17 [History] Levothyroxine Sodium [Synthroid] 100 mcg PO DAILY 03/19/17 [History] amLODIPine BESYLATE [Norvasc] 10 mg PO DAILY 03/19/17 [History] Omeprazole 20 mg PO DAILY 11/06/18 [History] Docusate [Colace] 100 mg PO DAILY PRN #30 capsule 11/08/18 [Rx] HYDROcodone/APAP 7.5-325MG [[place] 7.5-325] 1 tab PO Q4H PRN 3 Days #18 tab 11/08/18 [Rx] Lidocaine 5% Patch [Lidoderm 5% Patch] 1 patch TOPICAL DAILY #7 patch 11/08/18 [Rx] Follow up Appointment(s)/Referral(s): Miguel Burciaga DO [Doctor of Osteopathic Medicine] - 11/16/18 2:30 pm Marva Benites MD [Primary Care Provider] - 11/14/18 10:30 am Patient Instructions/Handouts: Kyphoplasty (DC) Activity/Diet/Wound Care/Special Instructions: If you have increased back pain, any weakness in the legs, any urinary or bowel or bladder incontinence, any saddle anesthesia, any weakness or tingling numbness of the lower extremities, please call 911 and come to the ER immediately 1. Patient may shower with Tegaderm dressing intact. 2. Patient may remove Tegaderm dressing in 3 days and shower without a dressing at that time. 3. Patient should keep Steri-Strips intact and allow them to fall off naturally. 4. Patient should refrain from driving until at least after their first follow- up appointment in the office. 5. Patient should avoid excessive bending, twisting, and lifting; no lifting greater than 10 pounds 6. Take medications as prescribed 7. Do not soak in tub
[2018-11-14] MEDS: HYDROcodone/APAP 5-325MG 1 EACH TAB PO PRN (11:53)
[2018-11-14] MEDS: traMADol 50 MG TAB PO PRN (12:57)
== END 2018-11-14 13:30 | disposition home health service (06) | DRG 479 ==
LOC: EC 14:03 → 4SSUR 17:42 → OBSVTOIN 11-10 09:41
PROVIDERS: ADMIT Internal Medicine; ATTEND Internal Medicine
PROC: 0QS03ZZ Reposition Lumbar Vertebra, Percutaneous Approach (ICD-10-PCS; 2018-11-12)
PROC: 0QU03JZ Supplement Lumbar Vertebra with Synthetic Substitute, Percutaneous Approach (ICD-10-PCS; 2018-11-12)
PROC: 0QB03ZX Excision of Lumbar Vertebra, Percutaneous Approach, Diagnostic (ICD-10-PCS; principal; 2018-11-12 13:00)
DX: M80.08XA Age-related osteoporosis with current pathological fracture, vertebra(e), initial encounter for fracture (principal); E03.9 Hypothyroidism, unspecified; E78.5 Hyperlipidemia, unspecified; I10 Essential (primary) hypertension; K21.9 Gastro-esophageal reflux disease without esophagitis; K59.00 Constipation, unspecified; R35.0 Frequency of micturition; Z79.82 Long term (current) use of aspirin; Z79.890 Hormone replacement therapy; Z79.899 Other long term (current) drug therapy; Z87.891 Personal history of nicotine dependence; Z98.1 Arthrodesis status; Z87.310 Personal history of (healed) osteoporosis fracture; Z98.42 Cataract extraction status, left eye; Z98.41 Cataract extraction status, right eye; Z88.5 Allergy status to narcotic agent; Z82.3 Family history of stroke; Z83.3 Family history of diabetes mellitus; Z82.49 Family history of ischemic heart disease and other diseases of the circulatory system; Z83.49 Family history of other endocrine, nutritional and metabolic diseases; Z80.9 Family history of malignant neoplasm, unspecified; Z86.59 Personal history of other mental and behavioral disorders
CPT/HCPCS: 72100; 72131; 80048; 81003; 85025; 88307; 88311; 96372; 99284

== ENCOUNTER 2020-07-23 12:05 | Emergency (ER) | payer MEDICARE ==
--- NOTE | 2020-07-23 12:20 | ED ---
General Adult HPI - General Source: patient, family, RN notes reviewed Mode of arrival: ambulatory Limitations: no limitations <Silvano Sheehan - Last Filed: 07/23/20 12:19> <Deniz Rodriguez - Last Filed: 07/23/20 15:47> - General Stated complaint: Gas exposure Time Seen by Provider: 07/23/20 12:15 - History of Present Illness Initial comments: 89-year-old female presents emergency Department from PCPs office with multiple complaints. Patient states that she has not been feeling well she's had a couple bouts of coffee-ground emesis, generalized weakness decreased blood pressure. Patient states she just feels sick. Patient states that she also accident left her gas stove on and states that her PCP sent her for possible carbon monoxide exposure. Patient states she's been having upper abdominal pain. (Silvano Sheehan) 89-year-old female with a past medical history of GERD, hyperlipidemia, hypertension, thyroid disorder presents with several complaints. Patient's main complaint is possible carbon monoxide exposure. The patient's daughter went to visit her today and noticed her gas was on and wanted her to be evaluated. She reports the patient also had 2 episodes of coffee ground emesis about 10 days ago and has been a little more weak than normal since that time so wanted to get a hemoglobin checked as well. She is also been having slight epigastric pain. Patient denies diarrhea. Patient denies fever.Patient has no other complaints at this time including shortness of breath, chest pain, nausea or vomiting, headache, or visual changes. (Deniz Rodriguez) - Related Data Home Medications Medication Instructions Recorded Confirmed Lovastatin [Mevacor] 20 mg PO HS 01/06/14 07/23/20 Aspirin 81 mg PO HS 06/15/15 07/23/20 Multivit with Calcium,Iron,Min 1 tab PO HS 06/15/15 07/23/20 [Women's Daily Multivitamin] Acetaminophen/Diphenhydramine 1 tab PO HS PRN 03/19/17 07/23/20 [Tylenol PM 500-25mg] Levothyroxine Sodium [Synthroid] 100 mcg PO DAILY 03/19/17 07/23/20 amLODIPine BESYLATE [Norvasc] 10 mg PO DAILY 03/19/17 07/23/20 Omeprazole 20 mg PO DAILY 11/06/18 07/23/20 traMADol HCL 50 mg PO Q6H PRN 07/23/20 07/23/20 Allergies Allergy/AdvReac Type Severity Reaction Status Date / Time codeine AdvReac Hallucinati Verified 07/23/20 15:01 ons Review of Systems ROS Other: All systems not noted in ROS Statement are negative. <Silvano Sheehan - Last Filed: 07/23/20 12:19> ROS Other: All systems not noted in ROS Statement are negative. <Deniz Rodriguez P - Last Filed: 07/23/20 15:47> ROS Statement: Those systems with pertinent positive or pertinent negative responses have been documented in the HPI. 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 Past Anesthesia/Blood Transfusion Reactions: No Reported Reaction Additional Past Anesthesia/Blood Transfusion Reaction / Comment(s): no hx blood transfusion Past Psychological History: Anxiety, Depression Past Alcohol Use History: None Reported Past Drug Use History: None Reported - Past Family History Son(s) Additional Family Medical History / Comment(s): after tonsil surgery as a child Mother Family Medical History: Cancer, CVA/TIA, Diabetes Mellitus, Thyroid Disorder Additional Family Medical History / Comment(s): heart problems Father Family Medical History: Diabetes Mellitus Additional Family Medical History / Comment(s): heart problems <Silvano Sheehan - Last Filed: 07/23/20 12:19> General Exam General appearance: alert, in no apparent distress Head exam: Present: atraumatic, normocephalic, normal inspection <Silvano Sheehan - Last Filed: 07/23/20 12:19> General appearance: alert, in no apparent distress Head exam: Present: atraumatic, normocephalic, normal inspection Eye exam: Present: normal appearance, PERRL, EOMI. Absent: scleral icterus ENT exam: Present: normal exam, mucous membranes moist Neck exam: Present: normal inspection, full ROM. Absent: tenderness Respiratory exam: Present: normal lung sounds bilaterally. Absent: respiratory distress, wheezes Cardiovascular Exam: Present: regular rate, normal rhythm, normal heart sounds GI/Abdominal exam: Present: soft, normal bowel sounds. Absent: distended, tenderness, guarding, rebound, rigid <Deniz Rodriguez - Last Filed: 07/23/20 15:47> Course Vital Signs 07/23/20 07/23/20 07/23/20 12:16 13:59 15:28 Temperature 97.8 F Pulse Rate 94 84 83 Respiratory 18 18 Rate Blood Pressure 129/84 140/78 O2 Sat by Pulse 97 96 Oximetry EKG Findings - EKG Comments: EKG Findings:: Normal sinus rhythm, ventricular rate 85, WA interval 144, QTc 456 <Deniz Rodriguez - Last Filed: 07/23/20 15:47> Medical Decision Making - Lab Data Result diagrams: 07/23/20 13:59 07/23/20 13:59 <Deniz Rodriguez - Last Filed: 07/23/20 15:47> - Medical Decision Making Vitals are stable. Patient is well appearing. Daughter reports she did not feel she needed to come to the emergency room but was told to come in to get her carbon monoxide checked. CBC is unremarkable. Hemoglobin 12.7. Occult blood is negative. CMP unremarkable. EKG nonischemic. Troponin is negative. Urinalysis negative. Chest x-ray shows no acute process. Carbon monoxide level 4.4. Patient is not a smoker. Although this is not an abnormally high level I did request that they have the fire department come check the house for carbon monoxide. At this time patient and daughter are requesting discharge. Patient will continue to take omeprazole at home. Patient will be discharged home to follow up with primary care in stable condition. Will return here for any worsening symptoms. (Deniz Rodriguez) - Lab Data Lab Results 07/23/20 07/23/20 07/23/20 Range/Units 13:59 13:59 13:59 WBC 8.4 (3.8-10.6) k/uL RBC 4.73 (3.80-5.40) m/uL Hgb 12.7 (11.4-16.0) gm/dL Hct 39.5 (34.0-46.0) % MCV 83.4 (80.0-100.0) fL MCH 26.8 (25.0-35.0) pg MCHC 32.1 (31.0-37.0) g/dL RDW 13.7 (11.5-15.5) % Plt Count 314 (150-450) k/uL MPV 6.7 Neutrophils % 81 % Lymphocytes % 12 % Monocytes % 5 % Eosinophils % 1 % Basophils % 0 % Neutrophils # 6.8 (1.3-7.7) k/uL Lymphocytes # 1.0 (1.0-4.8) k/uL Monocytes # 0.5 (0-1.0) k/uL Eosinophils # 0.1 (0-0.7) k/uL Basophils # 0.0 (0-0.2) k/uL PT 9.8 (9.0-12.0) sec INR 0.9 (<1.2) APTT 22.9 (22.0-30.0) sec Carbon Monoxide, Quant (<10.0) % Sodium 133 L (137-145) mmol/L Potassium 4.3 (3.5-5.1) mmol/L Chloride 103 (98-107) mmol/L Carbon Dioxide 22 (22-30) mmol/L Anion Gap 8 mmol/L BUN 9 (7-17) mg/dL Creatinine 0.47 L (0.52-1.04) mg/dL Est GFR (CKD-EPI)AfAm >90 (>60 ml/min/1.73 sqM) Est GFR (CKD-EPI)NonAf 89 (>60 ml/min/1.73 sqM) Glucose 126 H (74-99) mg/dL Plasma Lactic Acid Jonh (0.7-2.0) mmol/L Calcium 9.3 (8.4-10.2) mg/dL Magnesium 2.0 (1.6-2.3) mg/dL Total Bilirubin 0.5 (0.2-1.3) mg/dL AST 19 (14-36) U/L ALT 12 (4-34) U/L Alkaline Phosphatase 118 (38-126) U/L Troponin I (0.000-0.034) ng/mL Total Protein 7.5 (6.3-8.2) g/dL Albumin 4.3 (3.5-5.0) g/dL Urine Color Urine Appearance (Clear) Urine pH (5.0-8.0) Ur Specific [place] (1.001-1.035) Urine Protein (Negative) Urine Glucose (UA) (Negative) Urine Ketones (Negative) Urine Blood (Negative) Urine Nitrite (Negative) Urine Bilirubin (Negative) Urine Urobilinogen (<2.0) mg/dL Ur Leukocyte Esterase (Negative) Stool Occult Blood (Negative) 07/23/20 07/23/20 07/23/20 Range/Units 13:59 13:59 13:59 WBC (3.8-10.6) k/uL RBC (3.80-5.40) m/uL Hgb (11.4-16.0) gm/dL Hct (34.0-46.0) % MCV (80.0-100.0) fL MCH (25.0-35.0) pg MCHC (31.0-37.0) g/dL RDW (11.5-15.5) % Plt Count (150-450) k/uL MPV Neutrophils % % Lymphocytes % % Monocytes % % Eosinophils % % Basophils % % Neutrophils # (1.3-7.7) k/uL Lymphocytes # (1.0-4.8) k/uL Monocytes # (0-1.0) k/uL Eosinophils # (0-0.7) k/uL Basophils # (0-0.2) k/uL PT (9.0-12.0) sec INR (<1.2) APTT (22.0-30.0) sec Carbon Monoxide, Quant 4.4 (<10.0) % Sodium (137-145) mmol/L Potassium (3.5-5.1) mmol/L Chloride (98-107) mmol/L Carbon Dioxide (22-30) mmol/L Anion Gap mmol/L BUN (7-17) mg/dL Creatinine (0.52-1.04) mg/dL Est GFR (CKD-EPI)AfAm (>60 ml/min/1.73 sqM) Est GFR (CKD-EPI)NonAf (>60 ml/min/1.73 sqM) Glucose (74-99) mg/dL Plasma Lactic Acid Jonh 1.3 (0.7-2.0) mmol/L Calcium (8.4-10.2) mg/dL Magnesium (1.6-2.3) mg/dL Total Bilirubin (0.2-1.3) mg/dL AST (14-36) U/L ALT (4-34) U/L Alkaline Phosphatase (38-126) U/L Troponin I <0.012 (0.000-0.034) ng/mL Total Protein (6.3-8.2) g/dL Albumin (3.5-5.0) g/dL Urine Color Urine Appearance (Clear) Urine pH (5.0-8.0) Ur Specific [place] (1.001-1.035) Urine Protein (Negative) Urine Glucose (UA) (Negative) Urine Ketones (Negative) Urine Blood (Negative) Urine Nitrite (Negative) Urine Bilirubin (Negative) Urine Urobilinogen (<2.0) mg/dL Ur Leukocyte Esterase (Negative) Stool Occult Blood (Negative) 07/23/20 07/23/20 Range/Units 14:23 14:34 WBC (3.8-10.6) k/uL RBC (3.80-5.40) m/uL Hgb (11.4-16.0) gm/dL Hct (34.0-46.0) % MCV (80.0-100.0) fL MCH (25.0-35.0) pg MCHC (31.0-37.0) g/dL RDW (11.5-15.5) % Plt Count (150-450) k/uL MPV Neutrophils % % Lymphocytes % % Monocytes % % Eosinophils % % Basophils % % Neutrophils # (1.3-7.7) k/uL Lymphocytes # (1.0-4.8) k/uL Monocytes # (0-1.0) k/uL Eosinophils # (0-0.7) k/uL Basophils # (0-0.2) k/uL PT (9.0-12.0) sec INR (<1.2) APTT (22.0-30.0) sec Carbon Monoxide, Quant (<10.0) % Sodium (137-145) mmol/L Potassium (3.5-5.1) mmol/L Chloride (98-107) mmol/L Carbon Dioxide (22-30) mmol/L Anion Gap mmol/L BUN (7-17) mg/dL Creatinine (0.52-1.04) mg/dL Est GFR (CKD-EPI)AfAm (>60 ml/min/1.73 sqM) Est GFR (CKD-EPI)NonAf (>60 ml/min/1.73 sqM) Glucose (74-99) mg/dL Plasma Lactic Acid Jonh (0.7-2.0) mmol/L Calcium (8.4-10.2) mg/dL Magnesium (1.6-2.3) mg/dL Total Bilirubin (0.2-1.3) mg/dL AST (14-36) U/L ALT (4-34) U/L Alkaline Phosphatase (38-126) U/L Troponin I (0.000-0.034) ng/mL Total Protein (6.3-8.2) g/dL Albumin (3.5-5.0) g/dL Urine Color Light Yellow Urine Appearance Clear (Clear) Urine pH 7.0 (5.0-8.0) Ur Specific [place] 1.006 (1.001-1.035) Urine Protein Negative (Negative) Urine Glucose (UA) Negative (Negative) Urine Ketones Negative (Negative) Urine Blood Negative (Negative) Urine Nitrite Negative (Negative) Urine Bilirubin Negative (Negative) Urine Urobilinogen <2.0 (<2.0) mg/dL Ur Leukocyte Esterase Negative (Negative) Stool Occult Blood Negative (Negative) Disposition <Silvano Sheehan M - Last Filed: 07/23/20 12:19> Is patient prescribed a controlled substance at d/c from ED?: No Time of Disposition: 15:46 <Deniz Rodriguez P - Last Filed: 07/23/20 15:47> Clinical Impression: Malaise, History of vomiting Disposition: HOME SELF-CARE Condition: Good Instructions (If sedation given, give patient instructions): Gastrointestinal Bleeding (ED) Additional Instructions: Please watch for any blood or vomit or stool. If patient develops any worsening symptoms return to the emergency room. Otherwise follow-up with primary care. Referrals: Marva Benites MD [Primary Care Provider] - 1-2 days
[2020-07-23 12:21] VITALS: RESP 18; TEMP 97.8
[2020-07-23 14:14] LABS: Basophils % (A) 0 %; Eosinophils # (A) 0.1 k/uL (0-0.7); Eosinophils % (A) 1 %; HCT 39.5 % (34.0-46.0); HGB 12.7 gm/dL (11.4-16.0); Lymphocytes % (A) 12 %; MCH 26.8 pg (25.0-35.0); MCHC 32.1 g/dL (31.0-37.0); MCV 83.4 fL (80.0-100.0); Mean Platelet Volume 6.7; Monocytes # (A) 0.5 k/uL (0-1.0); Monocytes % (A) 5 %; Neutrophils # (A) 6.8 k/uL (1.3-7.7); Neutrophils % (A) 81 %; Platelet Count 314 k/uL (150-450); RBC 4.73 m/uL (3.80-5.40); RDW 13.7 % (11.5-15.5); WBC 8.4 k/uL (3.8-10.6)
[2020-07-23] MEDS ORDERED: PANTOPRAZOLE 40 MG/10 ML VIAL IVP STA (14:18)
[2020-07-23 14:24] LABS: ALT 12 U/L (4-34); AST 19 U/L (14-36); African American GFR (CKD) >90 (>60 ml/min/1.73 sqM); Albumin 4.3 g/dL (3.5-5.0); Alkaline Phosphatase 118 U/L (38-126); Anion Gap 8 mmol/L; Blood Urea Nitrogen 9 mg/dL (7-17); Calcium 9.3 mg/dL (8.4-10.2); Carbon Dioxide 22 mmol/L (22-30); Chloride 103 mmol/L (98-107); Glucose 126 mg/dL (74-99); Non-African American GFR(CKD) 89 (>60 ml/min/1.73 sqM); Potassium 4.3 mmol/L (3.5-5.1); Sodium 133 mmol/L (137-145); Total Bilirubin 0.5 mg/dL (0.2-1.3); Total Protein 7.5 g/dL (6.3-8.2)
[2020-07-23 14:25] LABS: INR 0.9 (<1.2); Partial Thromboplastin Time 22.9 sec (22.0-30.0); Prothrombin Time 9.8 sec (9.0-12.0)
[2020-07-23 14:39] LABS: Appearance,Urine Clear (Clear); Bilirubin,Urine Negative (Negative); Blood,Urine Negative (Negative); Color,Urine Light Yellow; Glucose,Urine (UA) Negative (Negative); Ketones,Urine Negative (Negative); Leukocyte Esterase,Urine Negative (Negative); Nitrite,Urine Negative (Negative); Protein,Urine Negative (Negative); Specific Gravity,Urine 1.006 (1.001-1.035); Urobilinogen,Urine <2.0 mg/dL (<2.0)
[2020-07-23 15:29] VITALS: BP 140/78; PULSE 83
--- NOTE | 2020-07-23 15:34 | XR ---
EXAMINATION TYPE: XR chest 2V DATE OF EXAM: 07/23/2020 COMPARISON: 03/19/2017 INDICATION: Weak cough TECHNIQUE: Frontal and lateral views of the chest are obtained. FINDINGS: The heart size is normal. The pulmonary vasculature is normal. The lungs are clear. There is a poor inspiration present. There is chronic elevation of the right gala phragm Prior vertebroplasty in the lower thoracic spine is evident. IMPRESSION: 1. No acute pulmonary process.
== END 2020-07-23 15:56 | disposition home or self-care (01) ==
LOC: EC 12:05
DX: R53.81 Other malaise (principal); K21.9 Gastro-esophageal reflux disease without esophagitis; I10 Essential (primary) hypertension; E78.5 Hyperlipidemia, unspecified; F41.9 Anxiety disorder, unspecified; F32.9 Major depressive disorder, single episode, unspecified
CPT/HCPCS: 36415; 93005; 80053; 82375; 83605; 83735; 84484; 85025; 85610; 85730; 82272; 81003; 71046; 99285; 96374; C9113

== ENCOUNTER 2021-03-02 20:53 | Emergency (ER) | payer MEDICARE ==
[2021-03-02 21:10] VITALS: BP 154/84; PULSE 87; RESP 19; TEMP 97.7
[2021-03-02] MEDS ORDERED: OXYMETAZOLINE 0.05% NASL SPRAY 1 SPRAY BOTTLE NASAL STA (22:59)
--- NOTE | 2021-03-02 23:01 | ED ---
General Adult HPI - General Chief complaint: ENT Stated complaint: Nose bleed since 7am Time Seen by Provider: 03/02/21 22:38 Source: patient, family Mode of arrival: wheelchair Limitations: no limitations - History of Present Illness Initial comments: 89-year-old female presents to the emergency room for a chief complaint of nosebleeds. Patient's son reports that since about 6:00 PM she has had nosebleeds on and off. States they're very minimal and she just consistently dabs at them with a napkin. No significant bleeding. He reports the patient is on a blood thinner that they talked to her doctor about and are stopping. States that since they have been in the waiting room for the past couple hours the bleeding has stopped and she is not having any active bleeding. Son states it is very hot and dry in her apartment and he will be getting her a humidifier tonight. Patient has no other complaints at this time including shortness of breath, chest pain, abdominal pain, nausea or vomiting, headache, or visual changes. - Related Data Home Medications Medication Instructions Recorded Confirmed Lovastatin [Mevacor] 20 mg PO HS 01/06/14 07/23/20 Aspirin 81 mg PO HS 06/15/15 07/23/20 Multivit with Calcium,Iron,Min 1 tab PO HS 06/15/15 07/23/20 [Women's Daily Multivitamin] Acetaminophen/Diphenhydramine 1 tab PO HS PRN 03/19/17 07/23/20 [Tylenol PM 500-25mg] Levothyroxine Sodium [Synthroid] 100 mcg PO DAILY 03/19/17 07/23/20 amLODIPine BESYLATE [Norvasc] 10 mg PO DAILY 03/19/17 07/23/20 Omeprazole 20 mg PO DAILY 11/06/18 07/23/20 traMADol HCL 50 mg PO Q6H PRN 07/23/20 07/23/20 Allergies Allergy/AdvReac Type Severity Reaction Status Date / Time codeine AdvReac Hallucinati Verified 03/02/21 21:10 ons Review of Systems ROS Statement: Those systems with pertinent positive or pertinent negative responses have been documented in the HPI. ROS Other: All systems not noted in ROS Statement are negative. Past Medical History Past Medical History: GERD/Reflux, Hyperlipidemia, Hypertension, Thyroid Disorder Additional Past Medical History / Comment(s): T11 compression fx 1-29-16,osteoporsis History of Any Multi-Drug Resistant Organisms: None Reported Past Surgical History: Back Surgery Additional Past Surgical History / Comment(s): ORIF Lt wrist, spinal fusion,lumbar laminectomy,addison cataract, 06-18-15 KYPHOPLASTY. Past Anesthesia/Blood Transfusion Reactions: No Reported Reaction Additional Past Anesthesia/Blood Transfusion Reaction / Comment(s): no hx blood transfusion Past Psychological History: Anxiety, Depression Smoking Status: Never smoker Past Alcohol Use History: None Reported Past Drug Use History: None Reported - Past Family History Son(s) Additional Family Medical History / Comment(s): after tonsil surgery as a child Mother Family Medical History: Cancer, CVA/TIA, Diabetes Mellitus, Thyroid Disorder Additional Family Medical History / Comment(s): heart problems Father Family Medical History: Diabetes Mellitus Additional Family Medical History / Comment(s): heart problems General Exam Limitations: no limitations General appearance: alert, in no apparent distress Eye exam: Present: normal appearance, PERRL, EOMI. Absent: scleral icterus, conjunctival injection ENT exam: Present: normal exam, normal oropharynx, mucous membranes moist, normal external ear exam, other (No nasal bleeding noted at this time.) Neck exam: Present: normal inspection, full ROM. Absent: tenderness Respiratory exam: Present: normal lung sounds bilaterally. Absent: respiratory distress, wheezes Cardiovascular Exam: Present: regular rate, normal rhythm, normal heart sounds Course Vital Signs 03/02/21 21:07 Temperature 97.7 F Pulse Rate 87 Respiratory 19 Rate Blood Pressure 154/84 O2 Sat by Pulse 98 Oximetry Medical Decision Making - Medical Decision Making No nasal bleeding noted on exam. Patient will be given Afrin spray. Unfortunately we're apparently out of nasal clamps but instructed to apply direct pressure for 20 minutes if bleeding recurs after using Afrin. I did give ENT referral. Also discussed that if bleeding starts again and is heavy at all they can return here for nasal packing. They will otherwise follow up outpatient. Disposition Clinical Impression: Epistaxis Disposition: HOME SELF-CARE Condition: Good Instructions (If sedation given, give patient instructions): Nosebleed (ED) Additional Instructions: If bleeding recurs spray Afrin twice in each nostril clamp for 20 minutes. Please follow-up with your doctor in one to 2 days. Follow up with ENT as well. Return to the emergency room for any worsening symptoms. Is patient prescribed a controlled substance at d/c from ED?: No Referrals: Marva Benites MD [Primary Care Provider] - 1-2 days Amauri Gant MD [STAFF PHYSICIAN] - 1-2 days Time of Disposition: 23:00
== END 2021-03-02 23:11 | disposition home or self-care (01) ==
LOC: EC 20:53
DX: R04.0 Epistaxis (principal); I10 Essential (primary) hypertension; E78.5 Hyperlipidemia, unspecified; K21.9 Gastro-esophageal reflux disease without esophagitis; F32.9 Major depressive disorder, single episode, unspecified; F41.9 Anxiety disorder, unspecified; Z79.82 Long term (current) use of aspirin; Z79.890 Hormone replacement therapy; Z79.899 Other long term (current) drug therapy; Z88.5 Allergy status to narcotic agent
CPT/HCPCS: 99283

== ENCOUNTER 2021-06-13 14:14 | Inpatient (IN) | payer MEDICARE ==
[2021-06-13] MEDS ORDERED: HYDROmorphone 1 MG/ML 1 ML SYRINGE IVP STA (14:41)
--- NOTE | 2021-06-13 15:13 | ED ---
General Adult HPI - General Chief complaint: Fall Stated complaint: Fall Time Seen by Provider: 06/13/21 14:20 Source: patient, EMS, RN notes reviewed, old records reviewed Mode of arrival: EMS Limitations: physical limitation - History of Present Illness Initial comments: 89-year-old female presents status post fall with right hip pain. Patient states she was in her kitchen, turned, fell onto her right hip. She denies loss consciousness. She denies anticoagulation. Her chief and only complaint is of her right hip. No chest pain, no abdominal pain, no vomiting. No fever. - Related Data Home Medications Medication Instructions Recorded Confirmed traMADol HCL 50 mg PO Q8H PRN 07/23/20 06/13/21 Levothyroxine Sodium [Synthroid] 88 mcg PO DAILY 06/13/21 06/13/21 Melatonin 10 mg PO HS 06/13/21 06/13/21 Sertraline [Zoloft] 50 mg PO DAILY 06/13/21 06/13/21 Allergies Allergy/AdvReac Type Severity Reaction Status Date / Time codeine AdvReac Hallucinati Verified 06/14/21 17:43 ons Review of Systems ROS Statement: Those systems with pertinent positive or pertinent negative responses have been documented in the HPI. ROS Other: All systems not noted in ROS Statement are negative. 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 Past Anesthesia/Blood Transfusion Reactions: No Reported Reaction Additional Past Anesthesia/Blood Transfusion Reaction / Comment(s): no hx blood transfusion Past Psychological History: Anxiety, Depression Smoking Status: Never smoker Past Alcohol Use History: None Reported Past Drug Use History: None Reported - Past Family History Son(s) Additional Family Medical History / Comment(s): after tonsil surgery as a child Mother Family Medical History: Cancer, CVA/TIA, Diabetes Mellitus, Thyroid Disorder Additional Family Medical History / Comment(s): heart problems Father Family Medical History: Diabetes Mellitus Additional Family Medical History / Comment(s): heart problems General Exam Limitations: physical limitation General appearance: alert, in distress (Pain) Head exam: Present: atraumatic, normocephalic Eye exam: Present: normal appearance, PERRL ENT exam: Present: normal exam Neck exam: Present: normal inspection. Absent: tenderness, meningismus Respiratory exam: Present: normal lung sounds bilaterally. Absent: respiratory distress, wheezes Cardiovascular Exam: Present: regular rate, normal rhythm GI/Abdominal exam: Present: soft. Absent: distended, tenderness, guarding Extremities exam: Present: normal capillary refill, other (Right lower extremity, is shortened and internally rotated distal pulses are intact.) Neurological exam: Present: alert, oriented X3, CN II-XII intact. Absent: motor sensory deficit Psychiatric exam: Present: normal affect, normal mood Skin exam: Present: warm, dry, intact. Absent: cyanosis, diaphoretic Course Vital Signs 06/13/21 06/13/21 06/13/21 14:24 14:54 15:10 Temperature 97.2 F L Pulse Rate 95 Pulse Rate [ Right] Respiratory 20 Rate Blood Pressure 205/118 190/122 Blood Pressure [Right Arm] O2 Sat by Pulse 95 85 L Oximetry 06/13/21 06/13/21 15:20 17:30 Temperature 98.3 F Pulse Rate Pulse Rate [ 98 Right] Respiratory 18 Rate Blood Pressure Blood Pressure 192/104 [Right Arm] O2 Sat by Pulse 97 98 Oximetry - Reevaluation(s) Reevaluation #1: 06/13/21 15:[address] Wang covering for [facility]. Will admit with internal medicine on consult. EKG Findings - EKG Comments: EKG Findings:: EKG: Sinus rhythm left ventricular hypertrophy, no ST segment elevation rate of 96, AK interval 137, QRS duration 77, QTC 390 Medical Decision Making - Medical Decision Making Labs, EKG, chest x-ray have been ordered, results pending for medical clearance. Patient has a right intertrochanteric fracture. She will be admitted to orthopedics, case discussed with Dr. Wang. Internal medicine will be on consult for medical clearance and has been notified of the consultation. Patient will be kept NPO after midnight. - Lab Data Result diagrams: 06/15/21 04:50 06/15/21 04:50 Lab Results 06/13/21 06/13/2122 Range/Units 15:27 15:27 15:27 WBC 8.7 (3.8-10.6) k/uL RBC 3.96 (3.80-5.40) m/uL Hgb 12.8 (11.4-16.0) gm/dL Hct 39.1 (34.0-46.0) % MCV 98.6 (80.0-100.0) fL MCH 32.4 (25.0-35.0) pg MCHC 32.8 (31.0-37.0) g/dL RDW 13.3 (11.5-15.5) % Plt Count 370 (150-450) k/uL MPV 7.1 Neutrophils % 86 % Lymphocytes % 7 % Monocytes % 4 % Eosinophils % 1 % Basophils % 0 % Neutrophils # 7.5 (1.3-7.7) k/uL Lymphocytes # 0.6 L (1.0-4.8) k/uL Monocytes # 0.4 (0-1.0) k/uL Eosinophils # 0.1 (0-0.7) k/uL Basophils # 0.0 (0-0.2) k/uL PT 10.5 (9.0-12.0) sec INR 1.0 (<1.2) APTT 22.8 (22.0-30.0) sec Sodium 133 L (137-145) mmol/L Potassium 3.7 (3.5-5.1) mmol/L Chloride 103 (98-107) mmol/L Carbon Dioxide 25 (22-30) mmol/L Anion Gap 5 mmol/L BUN 13 (7-17) mg/dL Creatinine 0.62 (0.52-1.04) mg/dL Est GFR (CKD-EPI)AfAm >90 (>60 ml/min/1.73 sqM) Est GFR (CKD-EPI)NonAf 80 (>60 ml/min/1.73 sqM) Glucose 118 H (74-99) mg/dL Calcium 9.0 (8.4-10.2) mg/dL Total Bilirubin 0.6 (0.2-1.3) mg/dL AST 22 (14-36) U/L ALT 15 (4-34) U/L Alkaline Phosphatase 96 (38-126) U/L Total Protein 6.1 L (6.3-8.2) g/dL Albumin 3.2 L (3.5-5.0) g/dL Disposition Clinical Impression: Fall, Fracture, intertrochanteric, right femur Disposition: ADMITTED IP TO THIS HOSP Condition: Stable Is patient prescribed a controlled substance at d/c from ED?: No Decision to Admit Reason: Admit from EC Decision Date: 06/13/21 Decision Time: 15:40
[2021-06-13] MEDS ORDERED: NALOXONE 0.4 MG/ML 1 ML VIAL IV PRN (15:34)
[2021-06-13] MEDS ORDERED: HYDROmorphone 0.5 MG/0.5 ML SYRINGE IVP PRN (15:34)
[2021-06-13] MEDS ORDERED: ACETAMINOPHEN TAB 325 MG TAB PO PRN (15:34)
[2021-06-13 15:50] LABS: Basophils % (A) 0 %; Eosinophils # (A) 0.1 k/uL (0-0.7); Eosinophils % (A) 1 %; HCT 39.1 % (34.0-46.0); HGB 12.8 gm/dL (11.4-16.0); Lymphocytes # (A) 0.6 k/uL (1.0-4.8); Lymphocytes % (A) 7 %; MCH 32.4 pg (25.0-35.0); MCHC 32.8 g/dL (31.0-37.0); MCV 98.6 fL (80.0-100.0); Mean Platelet Volume 7.1; Monocytes # (A) 0.4 k/uL (0-1.0); Monocytes % (A) 4 %; Neutrophils # (A) 7.5 k/uL (1.3-7.7); Neutrophils % (A) 86 %; Platelet Count 370 k/uL (150-450); RBC 3.96 m/uL (3.80-5.40); RDW 13.3 % (11.5-15.5); WBC 8.7 k/uL (3.8-10.6)
[2021-06-13 15:57] LABS: ALT 15 U/L (4-34); AST 22 U/L (14-36); African American GFR (CKD) >90 (>60 ml/min/1.73 sqM); Albumin 3.2 g/dL (3.5-5.0); Alkaline Phosphatase 96 U/L (38-126); Anion Gap 5 mmol/L; Blood Urea Nitrogen 13 mg/dL (7-17); Carbon Dioxide 25 mmol/L (22-30); Chloride 103 mmol/L (98-107); Glucose 118 mg/dL (74-99); Non-African American GFR(CKD) 80 (>60 ml/min/1.73 sqM); Potassium 3.7 mmol/L (3.5-5.1); Sodium 133 mmol/L (137-145); Total Bilirubin 0.6 mg/dL (0.2-1.3); Total Protein 6.1 g/dL (6.3-8.2)
[2021-06-13 16:03] LABS: Partial Thromboplastin Time 22.8 sec (22.0-30.0); Prothrombin Time 10.5 sec (9.0-12.0)
--- NOTE | 2021-06-13 16:03 | XR ---
EXAMINATION TYPE: XR chest 1V portable DATE OF EXAM: 06/13/2021 COMPARISON: 07/23/2020 HISTORY: Fall. Pain TECHNIQUE: FINDINGS: There is elevated right diaphragm. There is no heart failure. There is some mild subsegment al atelectasis right lung base. There is lower thoracic vertebroplasty. No heart failure seen. IMPRESSION: There is some chronic elevation of the right diaphragm that could relate to some paralysi s. No heart failure. No significant change compared to old exam.
--- NOTE | 2021-06-13 16:29 | XR ---
EXAMINATION TYPE: XR Hip RT and AP Pelvis DATE OF EXAM: 06/13/2021 COMPARISON: NONE HISTORY: Pain TECHNIQUE: 3 views FINDINGS: There is acute intertrochanteric fracture right femur with some impaction. There is no disl ocation. The pelvic ring is intact. Sacroiliac joints are intact. There is previous left hip nailing. IMPRESSION: Acute intertrochanteric fracture right femur with impaction.
[2021-06-13] MEDS: HYDROmorphone 1 MG/ML 1 ML SYRINGE IVP PRN ×2 (17:33→22:57)
[2021-06-13] MEDS: SODIUM CHLORIDE 0.9% 1,000 ML IV SCH (17:35)
[2021-06-13] MEDS ORDERED: hydrALAZINE HCL 20 MG/ML 1 ML VIAL IVP PRN (19:14)
[2021-06-14] MEDS: HYDROmorphone 1 MG/ML 1 ML SYRINGE IVP PRN ×7 (02:13→21:50)
--- NOTE | 2021-06-14 08:35 | P.HPOR ---
<Leslie Concepcion Tessa - Last Filed: 06/14/21 08:28> History of Present Illness H&P Date: 06/14/21 Chief Complaint: Right hip fracture The patient is an 89-year-old female with a past medical history of GERD, hyperlipidemia, hypertension, thyroid disorder, and multiple vertebral compression fractures, whose presented to the emergency department yesterday after sustaining a fall around lunchtime at home. X-rays of the right hip in the emergency department revealed a intertrochanteric fracture. She was admitted to orthopedic service for surgical intervention. The daughter is at the bedside this morning and the patient recently had Dilaudid for pain and is very sleepy. The patient does live at [facility] with her . She recently saw Dr. Burciaga a couple weeks ago and has a new compression fracture either at T12 or L1. Review of Systems Constitutional: Denies chills, Denies fatigue, Denies fever Cardiovascular: Denies chest pain, Denies shortness of breath Respiratory: Denies cough Gastrointestinal: Denies diarrhea, Denies nausea, Denies vomiting Musculoskeletal: right: hip pain, hip stiffness, hip swelling Past Medical History Past Medical History: GERD/Reflux, Hyperlipidemia, Hypertension, Thyroid Disorder Additional Past Medical History / Comment(s): T11 compression fx 05-22-15,osteoporsis History of Any Multi-Drug Resistant Organisms: None Reported Past Surgical History: Back Surgery Additional Past Surgical History / Comment(s): ORIF Lt wrist, spinal fusion,lumbar laminectomy,addison cataract, 06-18-15 KYPHOPLASTY, left hip surgery. Past Anesthesia/Blood Transfusion Reactions: No Reported Reaction Additional Past Anesthesia/Blood Transfusion Reaction / Comment(s): no hx blood transfusion Past Psychological History: Anxiety, Depression Smoking Status: Never smoker Past Alcohol Use History: None Reported Past Drug Use History: None Reported - Past Family History Son(s) Additional Family Medical History / Comment(s): after tonsil surgery as a child Mother Family Medical History: Cancer, CVA/TIA, Diabetes Mellitus, Thyroid Disorder Additional Family Medical History / Comment(s): heart problems Father Family Medical History: Diabetes Mellitus Additional Family Medical History / Comment(s): heart problems Medications and Allergies Home Medications Medication Instructions Recorded Confirmed Type traMADol HCL 50 mg PO Q8H PRN 07/23/20 06/13/21 History Levothyroxine Sodium [Synthroid] 88 mcg PO DAILY 06/13/21 06/13/21 History Melatonin 10 mg PO HS 06/13/21 06/13/21 History Sertraline [Zoloft] 50 mg PO DAILY 06/13/21 06/13/21 History Allergies Allergy/AdvReac Type Severity Reaction Status Date / Time codeine AdvReac Hallucinati Verified 06/13/21 16:10 ons Physical Examination The patient is a 89 year old female that is no acute distress. She is alert and oriented x3 but is very sleepy right due to pain medication. The patient's head is normocephalic and atraumatic. Exam of the cervical spine reveals no pain u bridget palpation or range of motion. Exam of the bilateral upper extremities reveal no obvious deformities or pain upon range of motion. Exam of the left lower extremity reveals no pain upon palpation. Exam of the right lower extremity reveals a externally rotated and shortened leg. No pain upon pa lpation to the lateral hip. There is pain upon logrolling and any range of motion of the leg. Bilateral calves are soft and nontender. Patient has good foot and ankle motion bilaterally. Neurological and circulatory status is intact. Results - Labs Labs: Abnormal Lab Results - Last 24 Hours (Table) 06/13/21 06/13/21 Range/Units 15:27 15:27 Lymphocytes # 0.6 L (1.0-4.8) k/uL Sodium 133 L (137-145) mmol/L Glucose 118 H (74-99) mg/dL Total Protein 6.1 L (6.3-8.2) g/dL Albumin 3.2 L (3.5-5.0) g/dL H & H 06/13/21 Range/Units 15:27 Hgb 12.8 (11.4-16.0) gm/dL Hct 39.1 (34.0-46.0) % Coagulation 06/13/21 Range/Units 15:27 INR 1.0 (<1.2) Result Diagrams: 06/13/21 15:27 06/13/21 15:27 - Diagnostic results Hip x-ray: image reviewed (X-rays of the right hip and pelvis revealed a intertrochanteric fracture.) Assessment and Plan (1) Hypertension Current Visit: Yes Status: Acute Code(s): I10 - ESSENTIAL (PRIMARY) HYPERTENSION SNOMED Code(s): 96234403 (2) Hyperlipidemia Current Visit: Yes Status: Acute Code(s): E78.5 - HYPERLIPIDEMIA, UNSPECIFIED SNOMED Code(s): 19274550 (3) Fall Current Visit: Yes Status: Acute Code(s): W19.XXXA - UNSPECIFIED FALL, INITIAL ENCOUNTER SNOMED Code(s): 3086943 (4) Fracture, intertrochanteric, right femur Current Visit: Yes Status: Acute Code(s): S72.141A - DISPLACED INTERTROCHANTERIC FRACTURE OF RIGHT FEMUR, INIT SNOMED Code(s): 005861561 (5) Fracture of lumbar vertebra, compression Current Visit: No Status: Acute Code(s): S32.000A - WEDGE COMPRESSION FRACTURE OF UNSP LUMBAR VERTEBRA, INIT SNOMED Code(s): 620517303 Plan: The clinical and x-ray findings were discussed with the patient. The case was discussed at length with Dr. Wang. Treatment options were discussed and surgical intervention is recommended. We discussed the surgical plan as well as the expected postoperative course. Risks and benefits were reviewed including (but not limited to) the risks of infection, bleeding, blood clots, delayed or nonunion, anesthesia-related complications and possible need for additional surgery. Questions were invited and answered. The patient expressed understanding and wishes to proceed with surgery. The patient will be kept on bedrest. Continue PRN pain management. NPO today. She is scheduled for a closed reduction with insertion of intramedullary nail of the right hip later this afternoon. We will await pre-op clearance from internal medicine. <Xiomara Wang - Last Filed: 06/14/21 15:56> Physical Examination Osteopathic Statement: *. No significant issues noted on an osteopathic structural exam other than those noted in the History and Physical/Consult. Results - Labs Labs: Abnormal Lab Results - Last 24 Hours (Table) 06/13/21 Range/Units 15:27 Sodium 133 L (137-145) mmol/L Glucose 118 H (74-99) mg/dL Total Protein 6.1 L (6.3-8.2) g/dL Albumin 3.2 L (3.5-5.0) g/dL H & H 06/13/21 Range/Units 15:27 Hgb 12.8 (11.4-16.0) gm/dL Hct 39.1 (34.0-46.0) % Coagulation 06/13/21 Range/Units 15: INR 1.0 (<1.2) Result Diagrams: 06/13/21 15:06/13/21 15: Assessment and Plan Plan: Pt seen and examined. Spoke with family. She had an IT fracture on the contralateral side not too long ago so the family is familiar and in agreement to proceed with surgery.
[2021-06-14] MEDS: SODIUM CHLORIDE 0.9% 1,000 ML IV SCH ×2 (11:22→20:48)
[2021-06-14] MEDS ORDERED: IPRATROPIUM-ALBUTEROL 3 ML NEB INHALATION PRN (12:06)
--- NOTE | 2021-06-14 15:37 | CONS ---
CONSULTATION REASON FOR CONSULTATION: Advice regarding hypertension and hyperlipidemia, requested by Orthopedic Surgery clearance. HISTORY OF PRESENT ILLNESS: This 89-year-old woman with a past medical history of hypertension, hyperlipidemia, GERD, being followed by Dr. Marva Benites in the outpatient setting, apparently had a fall and sustained a right hip fracture. The patient is currently sedated with pain medications. Preoperatively the patient is living with her in [facility] and appears to be have excellent exercise tolerance. Details cannot be taken from the patient right now, and most of the history is taken from my discussions with staff, review of chart and discussion with the family at the bedside. PAST MEDICAL HISTORY: Past medical history includes hypertension, hyperlipidemia, GERD. MEDICATIONS: Reviewed. They include Ultram, melatonin, Zoloft. Doses are reviewed. ALLERGIES: CODEINE. Family history, social history, review of systems could not be taken because of change in mental status. PHYSICAL EXAMINATION: Pulse 96, blood pressure 116/70, respirations 16. CHEST: Clear to auscultation. NECK: No jugular venous distention. CARDIOVASCULAR: S1, S2 muffled. ABDOMEN: Soft, nontender. Nervous system could not be examined completely. SKIN: No ulcer, rash, bleeding. LEGS: As mentioned earlier. JOINTS: No active deforming arthropathy. Otherwise as mentioned earlier. LABS: CBC within normal limits. Sodium is 133. ASSESSMENT: 1. Acute right hip fracture, intertrochanteric with impaction. 2. Hypertension. 3. Hyperlipidemia. 4. NO CODE. RECOMMENDATIONS AND DISCUSSION: In this 89-year-old woman who presented with a fracture, at this time the patient is medically stable. I would clear the patient and recommend resuming the home medications, DVT prophylaxis, incentive spirometry. Will follow the patient closely with you. A copy of this dictation is being forwarded to Dr. Marva Benites, who is the primary physician. MMODL / IJN: [id number] / GUEVARA
[2021-06-14] MEDS: DIAZEPAM 5 MG/ML 2 ML INJ IVP PRN (16:24)
[2021-06-14] MEDS: IV FLUID CONTINUATION 1,000 ML IV ONE ×3 (17:35→20:49)
[2021-06-14] MEDS ORDERED: fentaNYL (PF) 50 MCG/ML 2 ML AMP IVP ONE (18:43)
[2021-06-14] MEDS ORDERED: LABETALOL 5 MG/ML VIAL MDV ONE (18:45)
[2021-06-14] MEDS ORDERED: KETAMINE 10 MG/ML 20 ML VIAL ONE (18:45)
[2021-06-14] MEDS ORDERED: MIDAZOLAM 2 MG/2 ML VIAL ONE (18:45)
[2021-06-14] MEDS ORDERED: diazePAM 5 MG TAB PO PRN (19:08)
[2021-06-14] MEDS ORDERED: traMADol 50 MG TAB PO PRN (19:08)
[2021-06-14] MEDS ORDERED: ONDANSETRON 4 MG/2 ML VIAL IVP PRN (19:08)
--- NOTE | 2021-06-14 20:27 | XR ---
INDICATION PROVIDED: Intramedullary carmen fixation of right proximal femoral fracture. Intraoperative. COMPARISON: Same-day preoperative radiographs. TECHNIQUE: 3 stored intraoperative fluoroscopic images of the right femur in the AP and lateral proje ctions for surgical hardware localization were created. FINDINGS: Intraoperative fluoroscopic images during right femoral intramedullary carmen fixation obtained. Total fluoroscopic time is 44 seconds. I, the signing physician, have personally reviewed the examination and report on this patient and ed christofer the report if necessary. I agree with the report as it is written. IMPRESSION: Intraoperative right proximal femoral ORIF. Please see operative report for surgical details.
--- NOTE | 2021-06-14 20:28 | P.OP ---
Date of Procedure: 06/14/21 Preoperative Diagnosis: Left intertrochanteric hip fracture Postoperative Diagnosis: Same Procedure(s) Performed: Cephalo-medullary nailing of hip fracture Implants: Short gamma nail, 125, 85 mm screw, statically locked Anesthesia: spinal Surgeon: Xiomara Wang Estimated Blood Loss (ml): 20 Condition: stable Disposition: PACU Indications for Procedure: Makayla is a 89-year-old female who had a ground-level fall resulting in a stable intertrochanteric fracture. Then a long discussion with family and they've decided to proceed with surgical intervention. Description of Procedure: Patient, operative extremity, and procedure were identified in the preoperative holding area. After informed consent was obtained from the POA her daughter patient was brought back to the operating room. Spinal anesthesia was performed performed by the anesthesia team. She was then moved to the mariangel table and positioned with her feet in the operative boots. All areas were carefully padded. A formal timeout was performed. A closed reduction was then performed resulting in acceptable alignment of the fracture. The extremity, hip area was then prepped in normal sterile fashion and draped. A 2 cm incision was made proximal to the tip of the greater trochanter and the awl guide tool was utilized to place the guidewire at the tip of the trochanter on the AP view and in line with the middle of femoral neck in the lateral view. The guidewire was advanced and the canal was accessed with the opening reamer. A ball-tipped guidewire was then inserted and a 12.5 mm flexible reamer was passed easily. These were both removed. A short nail was then inserted and attention was turned to the cephalo-medullary screw. The guidewire was inserted using the triple sleeve guide. Positioning was checked both on the AP and on the lateral ensuring that it was center center in the femoral neck. The guidewire was advanced to within 10 mm of the articular surface. The measuring device indicated that a 85 mm drill was appropriate. Fluoroscopy was utilized with the drill in place to ensure that this was the appropriate size. An 85 mm screw was then inserted. Attention was then turned to the distal locking. The nail was locked in static fashion with a 37.5 mm screw. The jig and all instruments were then removed. Positioning of the fracture and hardware were confirmed on fluoroscopy. Fracture alignment was adequate and there was no perforation with the hardware. Wound was copiously irrigated with normal saline. It was then closed with 4-0 Monocryl and skin glue. With her dressed with 4 x 4's and Tegaderm. Patient was aroused by the anesthesia team and brought back to PACU in stable condition.
--- NOTE | 2021-06-14 20:36 | FL ---
EXAMINATION TYPE: FL guidance operating room DATE OF EXAM: 06/14/2021 FLUOROSCOPY Fluoroscopy time of 44 seconds was used during closed reduction right hip nailing. 3 image/s documen t/s the procedure.
--- NOTE | 2021-06-14 20:44 | XR ---
RESULT: HISTORY: Status post hip surgery, assess surgical alignment TECHNIQUE: Single AP view of the right femur. COMPARISON: Same day and prior. FINDINGS: There is interval intramedullary carmen fixation of the right femoral intratrochanteric fracture with im proved anatomic alignment. No evidence of immediate hardware complication. Postoperative changes abou t the hip soft tissue seen. IMPRESSION: Status post ORIF.
[2021-06-14] MEDS: SENNOSIDES-DOCUSATE SODIUM 1 EACH TAB PO SCH (22:36)
[2021-06-14] MEDS: HYDROcodone/APAP 5-325MG 1 EACH TAB PO PRN (22:40)
[2021-06-15] LABS: Appearance,Urine Clear (Clear); Bilirubin,Urine Negative (Negative); Blood,Urine Negative (Negative); Color,Urine Yellow; Glucose,Urine (UA) Negative (Negative); Hyaline Casts,Urine 3 /lpf (0-2); Ketones,Urine 1+ (Negative); Leukocyte Esterase,Urine Moderate (Negative); Mucus,Urine Occasional /hpf; Nitrite,Urine Negative (Negative); PH, Urine 5.5 (5.0-8.0); Protein,Urine Trace (Negative); RBC,Urine 1 /hpf (0-5); Specific Gravity,Urine 1.016 (1.001-1.035); Urobilinogen,Urine <2.0 mg/dL (<2.0); WBC,Urine 22 /hpf (0-5)
[2021-06-15] MEDS: LEVOTHYROXINE 88 MCG TAB PO SCH (05:22)
[2021-06-15] MEDS: HYDROcodone/APAP 5-325MG 1 EACH TAB PO PRN ×3 (05:22→16:51)
[2021-06-15] MEDS ORDERED: ENOXAPARIN 40 MG/0.4 ML SYRINGE SQ SCH (09:00)
[2021-06-15] MEDS: SERTRALINE 50 MG TAB PO SCH (09:02)
[2021-06-15 09:16] LABS: Basophils # (A) 0.02 X 10*3/uL (0.00-0.10); Basophils % (A) 0.3 %; Eosinophils # (A) 0.04 X 10*3/uL (0.04-0.35); Eosinophils % (A) 0.5 %; HCT 26.9 % (37.2-46.3); HGB 8.4 g/dL (12.0-15.0); Immature Grans, Automated 0.5 %; Lymphocytes % (A) 6.3 %; MCH 31.6 pg (27.0-32.0); MCHC 31.2 g/dL (32.0-37.0); MCV 101.1 fL (80.0-97.0); Mean Platelet Volume 9.2 fL (9.5-12.2); Monocytes # (A) 0.73 X 10*3/uL (0.20-1.00); Monocytes % (A) 9.2 %; NRBC Per 100 WBC 0 /100 WBCS (0.0-0.0); Neutrophils # (A) 6.57 X 10*3/uL (1.80-7.70); Neutrophils % (A) 83.2 %; Platelet Count 198 X 10*3/uL (140-440); RBC 2.66 X 10*6/uL (4.10-5.20)
[2021-06-15] MEDS ORDERED: HYDROmorphone 1 MG/ML 1 ML SYRINGE IVP PRN (09:22)
[2021-06-15 09:25] LABS: African American GFR (CKD) 93.7 (60.0-200.0); Albumin 2.8 g/dL (3.8-4.9); Albumin/Globulin Ratio 1.56 (1.60-3.17); Anion Gap 9.6 mmol/L (10.00-18.00); BUN/Creat Ratio 24.17 Ratio (12.00-20.00); Blood Urea Nitrogen 14.5 mg/dL (9.0-27.0); Calcium 7.9 mg/dL (8.7-10.3); Carbon Dioxide 21.4 mmol/L (20.0-27.5); Globulin 1.8 g/dL (1.6-3.3); Non-African American GFR(CKD) 80.8 (60.0-200.0); Potassium 3.6 mmol/L (3.5-5.5); Total Bilirubin 0.3 mg/dL (0.30-1.20); Total Protein 4.6 g/dL (6.2-8.2)
--- NOTE | 2021-06-15 09:50 | P.PN ---
Subjective Progress Note Date: 06/15/21 This patient is an 89- year old female who is status-post cephalomedullary nailing of right intertrochanteric hip fracture on 06/15/[address] Wang. Today is postoperative day #1. Patient is seen and examined bedside this morning. She states the pain in her right hip is well-controlled. She has not yet been up with physical therapy. She has no specific complaints or concerns. She denies chest pain, shortness breath, nausea, vomiting. Vital signs stable. Objective - Vital Signs Vital signs: Vital Signs Temp 99.3 F 06/15/21 07:48 Pulse 107 H 06/15/21 07:48 Resp 18 06/15/21 07:48 BP 157/80 06/15/21 07:48 Pulse Ox 93 L 06/15/21 07:48 Intake & Output 06/14/21 06/15/21 06/15/21 18:59 06:59 18:59 Intake Total 900 20 296 Output Total 300 920 Balance 600 -900 296 Intake: IV 900 20 Oral 296 Output: Urine 300 900 Estimated Blood Loss 20 Other: Voiding Method Indwelling Catheter Indwelling Catheter # Bowel Movements 0 - Exam On examination, patient is sitting up in bed in no apparent distress. She is alert and oriented 2. She is alert and answers questions appropriately. On inspection of the right hip, there is clean, dry, intact surgical dressings in place. There is no bleeding or drainage through the dressings. There is mild swelling of the thigh, the thigh soft and compressible. Motor and sensory fu nction is intact of the right lower extremity. Dorsalis pedis pulse +2. The right lower extremity is warm and well perfused with brisk capillary refill distally. Calf is soft and nontender to palpation. - Labs CBC & Chem 7: 06/15/21 04:50 06/15/21 04:50 Labs: Abnormal Lab Results - Last 24 Hours (Table) 06/14/21 06/15/21 06/15/21 Range/Units Unknown 04:50 04:50 RBC 2.66 L (4.10-5.20) X 10*6/uL Hgb 8.4 L (12.0-15.0) g/dL Hct 26.9 L (37.2-46.3) % MCV 101.1 H (80.0-97.0) fL MCHC 31.2 L (32.0-37.0) g/dL MPV 9.2 L (9.5-12.2) fL Lymphocytes # 0.50 L (0.90-5.00) X 10*3/uL Anion Gap 9.60 L (10.00-18.00) mmol/L BUN/Creatinine Ratio 24.17 H (12.00-20.00) Ratio Glucose 119 H (70-110) mg/dL Calcium 7.9 L (8.7-10.3) mg/dL Total Protein 4.6 L (6.2-8.2) g/dL Albumin 2.8 L (3.8-4.9) g/dL Albumin/Globulin Ratio 1.56 L (1.60-3.17) g/dL Urine Protein Trace H (Negative) Urine Ketones 1+ H (Negative) Ur Leukocyte Esterase Moderate H (Negative) Urine WBC 22 H (0-5) /hpf Hyaline Casts 3 H (0-2) /lpf Urine Mucus Occasional H (None) /hpf Assessment and Plan Assessment: Status-post cephalomedullary nailing of right intertrochanteric hip fracture on 06/15/[address] Wang. Post-operative day #1. Plan: - Patient may weight-bear as tolerated on the operative leg with a walker and assistance. - Physical therapy for gait and balance training. - Leave operative dressings in place for 48 hours. - Lovenox for DVT prophylaxis. - Pain management as needed. Decrease use of IV diluadid as tolerated. - 2 doses postoperative antibiotics. - Internal medicine for perioperative medical management. - Social work consult for discharge planning.
[2021-06-15] MEDS: HYDROmorphone 1 MG/ML 1 ML SYRINGE IVP PRN (11:07)
--- NOTE | 2021-06-15 12:21 | CDI ---
Diagnosis is right intertrochanteric fracture Documentation Clarification Form Date: 06/15/2021 12:00:54 PM From: Eleni Alegre RN, CCDS Admit Date: 06/13/2021 03:34:00 PM Patient Name: Makayla Segura Visit Number: [id number] Discharge Date: ATTENTION: The Clinical Documentation Specialists (CDI) and [facility] Coding Staff appreciate your assistance in clarifying documentation. Please respond to the clarification below the line at the bottom and electronically sign. The CDI & [facility] Coding staff will review the response and follow-up if needed. Please note: Queries are made part of the Legal Health Record. If you have any questions, please contact the author of this message via ITS. Dr. Xiomara Wang Conflicting documentation has been found in the medical record. As attending physician, please provide clarification. 06/14 Operative Note: Preoperative Diagnosis: Left intertrochanteric hip fracture. Postoperative Diagnosis: Same 06/13 Hip/Pelvis X-ray: Acute intertrochanteric fracture right femur with impaction. 06/15 Progress note: post cephalomedullary nailing of right intertrochanteric hip fracture on 06/15/21. History/Risk Factors: Hypertension Clinical Indicators: 89-year-old female had a ground-level fall resulting in an intertrochanteric fracture Treatment: 06/14 Cephalo-Medullary nailing of hip fracture Dilaudid .5 MG IV Q3 HRS PRN Physical therapy for gait and balance training Kefzol 2 GM IVPB X 2 doses postop Please clarify which diagnosis is most appropriate for the operative procedure performed: [ x ] Right intertrochanteric hip fracture [ ] Left Intertrochanteric hip fracture [ ] Other (please specify) [ ] Unable to determine (Template Last Revised: June 2020) MTDD
--- NOTE | 2021-06-15 12:48 | PN ---
PROGRESS NOTE DATE OF SERVICE: 06/15/2021 This 89-year-old woman who was admitted after acute right hip fracture had surgery by Dr. Wang. The patient is confused. Pain management is ongoing. The patient underwent cephalomedullary nailing of the hip fracture. Past medical history reviewed. Review of systems could not be taken. CURRENT MEDICATIONS: Reviewed. They include [place], Tylenol, Valium, Lovenox. Doses are reviewed. PHYSICAL EXAMINATION: Conscious, confused. Pulse is 107, blood pressure 157/80, respiration 18. CHEST: Clear to auscultation except for a few scattered rhonchi. ABDOMEN: Soft, nontender. CARDIOVASCULAR: S1, S2 normal. NERVOUS SYSTEM: Diffusely weak. LABS: Hemoglobin 8.4. Other labs are reviewed. UA noted. ASSESSMENT: 1. Right hip fracture, status post intramedullary nailing. 2. Urinary tract infection. 3. Hypertension. 4. Hyperlipidemia. RECOMMENDATIONS AND DISCUSSION: I recommend to continue current medications, continue with the monitoring, symptomatic treatment. Add antibiotics. See orders for further details. Guarded prognosis. Follow the cultures. Further recommendations to follow. MMODL / IJN: [id number] /
[2021-06-15] MEDS: SODIUM CHLORIDE 0.9% 1,000 ML IV SCH ×2 (16:51→21:22)
[2021-06-15] MEDS: SENNOSIDES-DOCUSATE SODIUM 1 EACH TAB PO SCH (21:23)
[2021-06-16] MEDS: HYDROcodone/APAP 5-325MG 1 EACH TAB PO PRN (01:32)
[2021-06-16] MEDS ORDERED: NITROGLYCERIN SL TABS 0.4 MG TAB SUBLINGUAL ONE (03:26)
[2021-06-16 03:31] LABS: Glucose,Whole Blood 126 mg/dL (75-99)
[2021-06-16] MEDS ORDERED: ASPIRIN 325 MG TAB PO STA (03:35)
[2021-06-16] MEDS: NITROGLYCERIN SL TABS 0.4 MG TAB SUBLINGUAL STA ×2 (03:38→03:48)
[2021-06-16] MEDS ORDERED: MAG HYDROX/AL HYDROX/SIMETH 30 ML CUP PO STA (03:42)
[2021-06-16] MEDS ORDERED: PANTOPRAZOLE 40 MG/10 ML VIAL IVP SCH (03:45)
--- NOTE | 2021-06-16 04:01 | P.EN ---
Thang called on this patient for chest pain patient is day 2 post surgical repair of right hip fracture 89 year old with GERD and Hypertension , no reported cardiac history she started complaining of epigastric abd pain 8/10 in severity , vitals showed oxygen sat 97% HR 105-95, BP systolic went up to 180s EKG showed no acute ST changes patient given full dose aspirin , and 2 doses of nitro, pain improved a little , but patient is not quantifying and wants to sleep. BP improved with systolic now in 120-130s. on exam , there is diminished breath sounds at lung basis with inspiratory rales Heart normal s1 s2 with systolic murmur , regular rhythm reproducible epigastric abd pain , abd soft and lax. plan chest pain rule out full dose ASA nitro PRN trial of Maalox and PPI , patient has history of GERD cardiac tele EKG no acute ST changes transfer to 3S trend trops , IF comes back elevated , will consider heparin drip and discuss with cardiology and orthopedic 35 minutes were spent in critical care time not including procedure time
[2021-06-16] MEDS ORDERED: NITROGLYCERIN SL TABS 0.4 MG TAB SUBLINGUAL PRN (04:31)
[2021-06-16] MEDS ORDERED: HEPARIN SODIUM 1,000 UN/ML (10ML VL) IV PRN ×2 (05:18→08:50)
[2021-06-16] MEDS ORDERED: HEPARIN SODIUM 1,000 UN/ML (10ML VL) IV ONE (05:18)
[2021-06-16] MEDS ORDERED: HEPARIN SOD,PORK IN 0.45% NACL 25,000 UNIT in 0.45% NACL 1 250ML.BAG IV SCH (05:30)
[2021-06-16 06:07] LABS: Partial Thromboplastin Time 27.1 sec (22.0-30.0); Prothrombin Time 10.6 sec (9.0-12.0)
[2021-06-16] MEDS: LEVOTHYROXINE 88 MCG TAB PO SCH (06:59)
--- NOTE | 2021-06-16 08:12 | CT ---
EXAMINATION TYPE: CT angio chest DATE OF EXAM: 06/16/2021 7:40 AM COMPARISON: No previous CT scan is available for comparison HISTORY: elevated d dimer CT DLP: 299.4 mGycm Automated exposure control for dose reduction was used. CONTRAST: CTA scan of the thorax is performed with IV Contrast, patient injected with 64 mL of Isovue 370, pulm onary embolism protocol. MIP images were performed and reviewed. FINDINGS: Pulmonary emboli are seen in the right lower lobe pulmonary artery extending to the segmental and sub segmental branches posteriorly. No definite filling defect is seen within the pulmonary trunk, the ma in pulmonary arteries or the major segmental arteries. Distal segmental and subsegmental arteries are suboptimally assessed. The pulmonary trunk measures 2.1 cm which may suggest pulmonary hypertension. No gross signs of right cardiac strain yet difficult to assess. Aortic root calcification with scattered arterial atheroscle rotic calcifications. Coronary arterial atherosclerotic calcifications. A complete lung expansion. [id number] left-sided pleural effusion with adjacent subsegmental p ulmonary atelectasis. Suspected complete collapse of the middle lobe with air bronchograms within, po ssibly chronic. Scattered peripheral pulmonary reticulations and tiny calcified granulomas. Minimal i nfiltration seen in the right lung apex. No sizable right-sided pleural effusion or pericardial effus ion. Suspected cardiomegaly, with left atrial dilatation, please correlate with echocardiographic res ults. Scattered bilateral hilar and mediastinal partially calcified lymph nodes. Hiatal hernia containing p ortion of the stomach with apparent dilatation of the more proximal esophagus increasing the risk for aspiration. Diffuse osteopenia. Marked degenerative changes of the lower cervical spine. Mild endpla te depression of T3 vertebral body, likely chronic. T8 and T9 vertebral body collapse is also noted, likely chronic. Previous vertebroplasty of T11 vertebral body. IMPRESSION: Right lower lobe posterior pulmonary emboli as described above. No emboli are seen within the pulmona ry trunk or the main pulmonary arteries. No obvious signs of the right cardiac strain yet suboptimall y assessed. Other multiple incidental findings as detailed above.
[2021-06-16] MEDS: SERTRALINE 50 MG TAB PO SCH (08:59)
[2021-06-16] MEDS: MULTIVITAMINS, THERA 1 EACH TAB PO SCH (08:59)
[2021-06-16] MEDS: SODIUM CHLORIDE 0.9% 1,000 ML IV SCH (08:59)
[2021-06-16] MEDS: HEPARIN SOD,PORK IN 0.45% NACL 25,000 UNIT in 0.45% NACL 1 250ML.BAG IV SCH ×2 (09:01→23:44)
[2021-06-16 09:29] LABS: Basophils # (A) 0.03 X 10*3/uL (0.00-0.10); Basophils % (A) 0.4 %; Eosinophils # (A) 0.09 X 10*3/uL (0.04-0.35); Eosinophils % (A) 1.2 %; HCT 26.7 % (37.2-46.3); HGB 8.3 g/dL (12.0-15.0); Immature Grans, Automated 0.4 %; Lymphocytes # (A) 0.77 X 10*3/uL (0.90-5.00); Lymphocytes % (A) 10.3 %; MCH 31.8 pg (27.0-32.0); MCHC 31.1 g/dL (32.0-37.0); MCV 102.3 fL (80.0-97.0); Mean Platelet Volume 9.7 fL (9.5-12.2); Monocytes # (A) 0.67 X 10*3/uL (0.20-1.00); NRBC Per 100 WBC 0 /100 WBCS (0.0-0.0); Neutrophils # (A) 5.89 X 10*3/uL (1.80-7.70); Neutrophils % (A) 78.7 %; Platelet Count 178 X 10*3/uL (140-440); RBC 2.61 X 10*6/uL (4.10-5.20); WBC 7.48 X 10*3/uL (4.50-10.00)
[2021-06-16 09:49] LABS: African American GFR (CKD) 99.5 (60.0-200.0); Albumin 2.9 g/dL (3.8-4.9); Albumin/Globulin Ratio 1.45 (1.60-3.17); Anion Gap 12.9 mmol/L (10.00-18.00); BUN/Creat Ratio 31.6 Ratio (12.00-20.00); Blood Urea Nitrogen 15.8 mg/dL (9.0-27.0); Calcium 8.2 mg/dL (8.7-10.3); Carbon Dioxide 18.1 mmol/L (20.0-27.5); Non-African American GFR(CKD) 85.8 (60.0-200.0); Potassium 3.4 mmol/L (3.5-5.5); Total Bilirubin 0.3 mg/dL (0.30-1.20); Total Protein 4.9 g/dL (6.2-8.2)
--- NOTE | 2021-06-16 10:34 | US ---
EXAMINATION TYPE: US venous doppler duplex LE DATE OF EXAM: 06/16/2021 9:52 AM COMPARISON: NONE CLINICAL HISTORY: + d dimer, positive PE. On heparin. No redness. Recent right hip fx and surgery x 3 days SIDE PERFORMED: Bilateral TECHNIQUE: The lower extremity deep venous system is examined utilizing real time linear array sonog juan carlos with graded compression, doppler sonography and color-flow sonography. VESSELS IMAGED: Common Femoral Vein Deep Femoral Vein Greater Saphenous Vein * Femoral Vein Popliteal Vein Small Saphenous Vein * Proximal Calf Veins (* superficial vessels) Right Leg: Negative for DVT Left Leg: Negative for DVT IMPRESSION: 1. Bilateral lower extremity ultrasound negative for deep venous thrombosis.
[2021-06-16] MEDS: HYDROmorphone 1 MG/ML 1 ML SYRINGE IVP PRN ×2 (10:58→20:19)
--- NOTE | 2021-06-16 11:40 | P.CRDCN ---
History of Present Illness Consult date: 06/16/21 History of present illness: HISTORY OF PRESENT ILLNESS: This is a 89 year old female with a past medical history significant for depression and hypothyroidism. Patient does not follow with a race starter. We have been asked to see the patient in consultation for abnormal troponins. Patient examined at the bedside. Patient is slightly confused at the time of examination. Patient was admitted to the hospital secondary to a fall. She was found to have a right hip fracture. Patient underwent nailing of right hip fracture on 06/14/2021 with orthopedics. An A team was called this morning secondary to chest pain and mild shortness of breath. Patient underwent CTA of the chest revealing right lower lobe posterior pulmonary emboli. The patient was started on IV heparin. Patient currently denies chest pain or pressure. She denies shortness of breath. Vital signs are stable. Patient is slightly hypertensive with a recent blood pressure 151/77. * EKG reveals sinus mechanism with no signs of acute ischemia * Chest xray there is some chronic elevation of the right diaphragm that could relate to some paralysis. No heart failure. * Venous Doppler: Negative for DVT bilaterally * Chest CTA: Right lower lobe posterior pulmonary emboli * Laboratory data: WBC 7.48. Hemoglobin 8.3. Platelet count 178. Sodium 133. Potassium 3.4. BUN 15. Creatinine 0.5. Troponin 0.125. 0.119. * Current home cardiac medications include none REVIEW OF SYSTEMS: At the time of my exam: CONSTITUTIONAL: Denies fever or chills. HEENT: Denies blurred vision, vision changes, or eye pain. Denies hemoptysis CARDIOVASCULAR: Denies chest pain. Denies orthopnea. Denies PND. Denies palpitations RESPIRATORY: Denies shortness of breath. GASTROINTESTINAL: Denies abdominal pain. Denies nausea or vomiting. HEMATOLOGIC: Denies bleeding disorders. GENITOURINARY: Denies any blood in urine. SKIN: Denies pruitis. Denies rash. PHYSICAL EXAM: VITAL SIGNS: Reviewed. GENERAL: Well-developed in no acute distress. HEENT: Head is normocephalic. Pupils are equal, round. Sclerae anicteric. Mucous membranes of the mouth are moist. Neck supple. No JVD or thyromegaly LUNGS: Respirations even and unlabored. Lungs essentially clear to auscultation bilaterally. HEART: Regular rate and rhythm. S1 and S2 heard. ABDOMEN: Soft. Nondistended. Nontender. EXTREMITIES: No clubbing or cyanosis. Peripheral pulses intact. No lower extremity edema NEUROLOGIC: Awake and alert. Oriented x 3. ASSESSMENT: Right hip fracture, status post fall at home, status post nailing Acute right lower lobe PE Abnormal troponins, secondary to above, no evidence of acute coronary syndrome Hypertension Hypothyroidism Depression PLAN: Obtain 2-D echo to assess cardiac structure and function Continue IV heparin. Will transition to oral anticoagulation tomorrow Add lisinopril 10 mg daily for optimal blood pressure control Further recommendations pending patient's course Nurse practitioner note has been reviewed by physician. Signing provider agrees with the documented findings, assessment, and plan of care. Past Medical History Past Medical History: GERD/Reflux, Hyperlipidemia, Hypertension, Thyroid Disorder Additional Past Medical History / Comment(s): T11 compression fx 05-22-15,o steoporsis History of Any Multi-Drug Resistant Organisms: None Reported Past Surgical History: Back Surgery Additional Past Surgical History / Comment(s): ORIF Lt wrist, spinal fusion,lumbar laminectomy,addison cataract, 06-18-15 KYPHOPLASTY, left hip surgery. Past Anesthesia/Blood Transfusion Reactions: No Reported Reaction Additional Past Anesthesia/Blood Transfusion Reaction / Comment(s): no hx blood transfusion Past Psychological History: Anxiety, Depression Smoking Status: Never smoker Past Alcohol Use History: None Reported Past Drug Use History: None Reported - Past Family History Son(s) Additional Family Medical History / Comment(s): after tonsil surgery as a child Mother Family Medical History: Cancer, CVA/TIA, Diabetes Mellitus, Thyroid Disorder Additional Family Medical History / Comment(s): heart problems Father Family Medical History: Diabetes Mellitus Additional Family Medical History / Comment(s): heart problems Medications and Allergies Home Medications Medication Instructions Recorded Confirmed Type traMADol HCL 50 mg PO Q8H PRN 07/23/20 06/13/21 History Levothyroxine Sodium [Synthroid] 88 mcg PO DAILY 06/13/21 06/13/21 History Melatonin 10 mg PO HS 06/13/21 06/13/21 History Sertraline [Zoloft] 50 mg PO DAILY 06/13/21 06/13/21 History Allergies Allergy/AdvReac Type Severity Reaction Status Date / Time codeine AdvReac Hallucinati Verified 06/14/21 17:43 ons Physical Exam Vitals: Vital Signs Temp Pulse Resp BP BP Pulse Ox 06/16/21 11:04 97.6 F 93 18 151/77 98 06/16/21 09:11 98 06/16/21 08:45 97.6 F 89 18 188/98 98 06/16/21 05:39 97.9 F 101 H 16 151/83 95 06/16/21 04:00 105 H 168/97 06/16/21 03:50 107 H 171/100 06/16/21 03:45 107 H 185/96 06/16/21 03:40 108 H 132/80 06/16/21 03:30 102 H 190/98 06/16/21 03:20 103 H 103/96 06/16/21 03:15 105 H 201/100 06/16/21 03:06 97.5 F L 109 H 212/101 95 06/15/21 20:00 98.8 F 101 H 18 156/88 92 L 06/15/21 14:00 98.2 F 99 16 128/73 95 Intake and Output 06/15/21 06/16/21 06/16/21 22:59 06:59 14:59 Intake Total 118 35.676 Output Total 200 350 Balance -82 -350 35.676 Intake: IV 20 Invasive Line 2 10 Invasive Line 3 10 Intake, IV Titration 15.676 Amount Heparin Sod,Pork in 0.45% 15.676 NaCl 25,000 unit In 0.45 % NaCl 1 250ml.bag @ 12 UNITS/KG/HR 7.348 mls/hr IV .Q24H [facility] Rx#: [id number] Oral 118 Output: Urine 200 350 Other: Voiding Method Indwelling Catheter Indwelling Catheter Results 06/16/21 03:37 06/16/21 03:37 Cardiac Enzymes 06/16/21 06/16/21 06/16/21 Range/Units 03:37 03:37 06:14 AST 31 (13-35) U/L Troponin I 0.125 H* 0.119 H* (0.000-0.034) ng/mL Coagulation 06/16/21 Range/Units 04:46 PT 10.6 (9.0-12.0) sec APTT 27.1 (22.0-30.0) sec CBC 06/16/21 Range/Units 03:37 WBC 7.48 (4.50-10.00) X 10*3/uL RBC 2.61 L (4.10-5.20) X 10*6/uL Hgb 8.3 L (12.0-15.0) g/dL Hct 26.7 L (37.2-46.3) % Plt Count 178 (140-440) X 10*3/uL Comprehensive Metabolic Panel 06/16/21 Range/Units 03:37 Sodium 133 L (135-145) mmol/L Potassium 3.4 L (3.5-5.5) mmol/L Chloride 102 (96-109) mmol/L Carbon Dioxide 18.1 L (20.0-27.5) mmol/L BUN 15.8 (9.0-27.0) mg/dL Creatinine 0.5 L (0.6-1.5) mg/dL Glucose 113 H (70-110) mg/dL Calcium 8.2 L (8.7-10.3) mg/dL AST 31 (13-35) U/L ALT 27 (8-44) U/L Alkaline Phosphatase 117 (41-126) U/L Total Protein 4.9 L (6.2-8.2) g/dL Albumin 2.9 L (3.8-4.9) g/dL Current Medications Generic Name Dose Route Start Last Admin Trade Name Freq PRN Reason Stop Dose Admin Acetaminophen 650 mg 06/13/21 15:34 Acetaminophen Tab 325 Mg Tab PO Q6HR PRN Mild Pain or Fever > 100.5 Hydrocodone Bitart/Acetaminophen 1 each 06/14/21 19:08 06/16/21 01:32 Hydrocodone/Apap 5-325mg 1 Each Tab PO 1 each Q6HR PRN Administration Pain Scale 6 to 10 Albuterol/Ipratropium 3 ml 06/14/21 12:06 Ipratropium-Albuterol 3 Ml Neb INHALATION RT-TID PRN Shortness Of Breath Or Wheezing Diazepam 5 mg 06/14/21 15:15 06/14/21 16:24 Diazepam 5 Mg/Ml 2 Ml Inj IVP 5 mg Q8HR PRN Administration Muscle Spasm Diazepam 5 mg 06/14/21 19:08 Diazepam 5 Mg Tab PO Q8HR PRN Moderate to Severe Spasms Heparin Sodium (Porcine) 0 unit 02/23/22 08:50 Heparin Sodium 1,000 Un/Ml (10ml Vl) IV PER PROTOCOL PRN Low PTT Protocol Hydralazine HCl 10 mg 06/13/21 19:14 06/13/21 19:43 Hydralazine Hcl 20 Mg/Ml 1 Ml Vial IVP 10 mg Q6HR PRN Administration Blood Pressure - High Hydromorphone HCl 1 mg 06/13/21 15:34 06/16/21 10:58 Hydromorphone 1 Mg/Ml 1 Ml Syringe IVP 1 mg Q3HR PRN Administration Severe Pain Hydromorphone HCl 0.5 mg 06/15/21 09:22 06/15/21 09:38 Hydromorphone 1 Mg/Ml 1 Ml Syringe IVP 0.5 mg Q3HR PRN Administration Moderate Pain Sodium Chloride 1,000 mls @ 75 mls/hr 06/13/21 15:45 06/16/21 08:59 Saline 0.9% IV Not Given .[id number] [facility] Ceftriaxone Sodium 1 gm/ 50 mls @ 100 mls/hr 06/15/21 12:30 06/16/21 08:59 Sodium Chloride IVPB 100 mls/hr Q24HR [facility] Administration Protocol Heparin Sodium/Sodium Chloride 250 mls @ 11.022 mls/hr 06/16/21 09:00 06/16/21 09:01 25,000 unit/ Sodium Chloride IV 18 units/kg/hr .[id number] [facility]ACK[facility]IE 11.022 mls/hr Administration Protocol 18 UNITS/KG/HR Levothyroxine Sodium 88 mcg 06/15/21 06:30 06/16/21 06:59 Levothyroxine 88 Mcg Tab PO 88 mcg DAILY@0630 [facility] Administration Magnesium Hydroxide 2,400 mg 06/14/21 19:08 Magnesium Hydroxide 2,400 Mg/10 Ml Cup PO DAILY PRN Constipation Multivitamins 1 each 06/16/21 12:00 06/16/21 08:59 Multivitamins, Thera 1 Each Tab PO 1 each DAILY@1200 [facility] Administration Naloxone HCl 0.2 mg 06/13/21 15:34 Naloxone 0.4 Mg/Ml 1 Ml Vial IV Q2M PRN Opioid Reversal Nitroglycerin 0.4 mg 06/16/21 04:31 Nitroglycerin Sl Tabs 0.4 Mg Tab SUBLINGUAL Q5M PRN Chest Pain Ondansetron HCl 4 mg 06/14/21 19:08 Ondansetron 4 Mg/2 Ml Vial IVP DAILY PRN Nausea And Vomiting Pantoprazole Sodium 40 mg 06/17/21 07:30 Pantoprazole 40 Mg Tablet PO AC-BRKFST [facility] Senna/Docusate Sodium 2 each 06/14/21 21:00 06/15/21 21:23 Sennosides-Docusate Sodium 1 Each Tab PO 2 each HS [facility] Administration Sertraline HCl 50 mg 06/15/21 09:00 06/16/21 08:59 Sertraline 50 Mg Tab PO 50 mg DAILY [facility] Administration Tramadol HCl 50 mg 06/14/21 19:08 Tramadol 50 Mg Tab PO Q6HR PRN Pain Scale 1 to 5 Intake and Output 06/15/21 06/16/21 06/16/21 22:59 06:59 14:59 Intake Total 118 35.676 Output Total 200 350 Balance -82 -350 35.676 Intake: IV 20 Invasive Line 2 10 Invasive Line 3 10 Intake, IV Titration 15.676 Amount Heparin Sod,Pork in 0.45% 15.676 NaCl 25,000 unit In 0.45 % NaCl 1 250ml.bag @ 12 UNITS/KG/HR 7.348 mls/hr IV .Q24H [facility] Rx#: [id number] Oral 118 Output: Urine 200 350 Other: Voiding Method Indwelling Catheter Indwelling Catheter 06/16/21 03:37 06/16/21 03:37
[2021-06-16] MEDS ORDERED: Potassium Replacement Protocol 1 EACH MISC MISCELLANE PRN (12:07)
[2021-06-16] MEDS ORDERED: POTASSIUM CHLORIDE ER 20 MEQ TAB.ER PO ONE (12:08)
--- NOTE | 2021-06-16 12:31 | ECHOF ---
Referral Reason:LV function, +PE, eval for heart strain MEASUREMENTS -------- HEIGHT: 157.5 cm WEIGHT: 61.2 kg BP: 151/83 RVIDd: 3.4 cm (< 3.3) IVSd: 1.2 cm (0.6 - 1.1) LVIDd: 4.1 cm (3.9 - 5.3) LVPWd: 1.2 cm (0.6 - 1.1) IVSs: 1.7 cm LVIDs: 2.5 cm LVPWs: 1.7 cm LA Diam: 3.4 cm (2.7 - 3.8) LAESV Index (A-L): 30.43 ml/m Ao Diam: 2.8 cm (2.0 - 3.7) AV Cusp: 1.6 cm (1.5 - 2.6) MV EXCURSION: 9.414 mm (> 18.000) MV EF SLOPE: 27 mm/s (70 - 150) EPSS: 1.0 cm MV E Miguel: 0.66 m/s MV DecT: 314 ms MV A Miguel: 1.42 m/s MV E/A Ratio: 0.46 AV maxP.47 mmHg AV meanP.22 mmHg RAP: 5.00 mmHg RVSP: 50.41 mmHg TAPSE: 18.74 mm FINDINGS -------- Sinus rhythm. This was a technically adequate study. The left ventricular size is normal. There is borderline concentric left ventricular hypertrophy. Overall left ventricular systolic function is normal with, an EF between 55 - 60 %. The LV end gala stolic pressure is elevated 17.17. The right ventricle is mildly enlarged. The right ventricular systolic function is normal. The left atrium is normal in size. The right atrium is normal in size. There is mild to moderate aortic valve sclerosis. There is mild aortic stenosis present. Peak/flip n gradient across the Aortic Valve is 22.47mmHg / 12.22mmHg. Moderate mitral annular calcification present. Mild mitral regurgitation is present. Moderate tricuspid regurgitation present. There is moderate pulmonary hypertension. The right sreekanth tricular systolic pressure, as measured by Doppler, is 50.41mmHg. Trace/mild (physiologic) pulmonic regurgitation. The aortic root size is normal. IVC Not well visulized. There is no pericardial effusion. CONCLUSIONS -------- 1. There is borderline concentric left ventricular hypertrophy. 2. Overall left ventricular systolic function is normal with, an EF between 55 - 60 %. 3. The right ventricle is mildly enlarged. 4. The right ventricular systolic function is normal. 5. There is mild to moderate aortic valve sclerosis. 6. There is mild aortic stenosis present. 7. Peak/mean gradient across the Aortic Valve is 22.47mmHg / 12.22mmHg. 8. Moderate mitral annular calcification present. 9. Mild mitral regurgitation is present. 10. Moderate tricuspid regurgitation present. 11. There is moderate pulmonary hypertension. 12. Trace/mild (physiologic) pulmonic regurgitation. 13. There is no pericardial effusion. MOTION STUDY ANALYST: Carmen Dillon RDCS
[2021-06-16] MEDS: LOSARTAN 25 MG TAB PO SCH (12:38)
--- NOTE | 2021-06-16 12:38 | P.PN ---
Subjective Progress Note Date: 06/16/21 Principal diagnosis: Status post cephalomedullary nailing right hip This is a 89 year-old female post cephalomedullary nailing right hip. This is post-op day 2. The patient was evaluated in recliner chair at the bedside today. The patient denies nausea, vomiting, abdominal pain, shortness of breath, and chest pain this morning. She states her pain is controlled at this time. She did have an episode of chest pain early this morning. An A-team was called and chest CTA was completed. A right lower lobe PE was found and she was started on a Heparin drip. Troponins were also elevated. The patient has been seen by cardiology. Plan is to transition to oral anticoagulation tomorrow. Objective - Vital Signs Vital signs: Vital Signs Temp 97.6 F 06/16/21 11:04 Pulse 93 06/16/21 11:04 Resp 18 06/16/21 11:04 BP 151/77 06/16/21 11:04 Pulse Ox 98 06/16/21 11:04 Intake & Output 06/15/21 06/16/21 06/16/21 18:59 06:59 18:59 Intake Total 650 35.676 Output Total 200 350 Balance 450 -350 35.676 Intake: IV 20 Invasive Line 2 10 Invasive Line 3 10 Intake, IV Titration 15.676 Amount Heparin Sod,Pork in 0.45% 15.676 NaCl 25,000 unit In 0.45 % NaCl 1 250ml.bag @ 12 UNITS/KG/HR 7.348 mls/hr IV .Q24H [facility] Rx#: [id number] Oral 650 Output: Urine 200 350 Other: Voiding Method Indwelling Catheter Indwelling Catheter - Exam The patient does not appear in acute distress. Alert and orientated x2. She was falling asleep easily during exam. Dressing is clean dry and intact. Incision appears fine with no erythema or active drainage. Calf is soft and nontender. Good foot and ankle motion without difficulty. Sensation and circulatory status is intact. - Labs CBC & Chem 7: 06/16/21 03:37 06/16/21 03:37 Labs: Abnormal Lab Results - Last 24 Hours (Table) 06/16/21 06/16/21 06/16/21 Range/Units 03:24 03:37 03:37 RBC 2.61 L (4.10-5.20) X 10*6/uL Hgb 8.3 L (12.0-15.0) g/dL Hct 26.7 L (37.2-46.3) % MCV 102.3 H (80.0-97.0) fL MCHC 31.1 L (32.0-37.0) g/dL Lymphocytes # 0.77 L (0.90-5.00) X 10*3/uL D-Dimer (<0.60) mg/L FEU Sodium 133 L (135-145) mmol/L Potassium 3.4 L (3.5-5.5) mmol/L Carbon Dioxide 18.1 L (20.0-27.5) mmol/L Creatinine 0.5 L (0.6-1.5) mg/dL BUN/Creatinine Ratio 31.60 H (12.00-20.00) Ratio Glucose 113 H (70-110) mg/dL POC Glucose (mg/dL) 126 H (75-99) mg/dL Calcium 8.2 L (8.7-10.3) mg/dL Troponin I (0.000-0.034) ng/mL Total Protein 4.9 L (6.2-8.2) g/dL Albumin 2.9 L (3.8-4.9) g/dL Albumin/Globulin Ratio 1.45 L (1.60-3.17) g/dL 06/16/21 06/16/21 06/16/21 Range/Units 03:37 04:46 06:14 RBC (4.10-5.20) X 10*6/uL Hgb (12.0-15.0) g/dL Hct (37.2-46.3) % MCV (80.0-97.0) fL MCHC (32.0-37.0) g/dL Lymphocytes # (0.90-5.00) X 10*3/uL D-Dimer 1.86 H (<0.60) mg/L FEU Sodium (135-145) mmol/L Potassium (3.5-5.5) mmol/L Carbon Dioxide (20.0-27.5) mmol/L Creatinine (0.6-1.5) mg/dL BUN/Creatinine Ratio (12.00-20.00) Ratio Glucose (70-110) mg/dL POC Glucose (mg/dL) (75-99) mg/dL Calcium (8.7-10.3) mg/dL Troponin I 0.125 H* 0.119 H* (0.000-0.034) ng/mL Total Protein (6.2-8.2) g/dL Albumin (3.8-4.9) g/dL Albumin/Globulin Ratio (1.60-3.17) g/dL Microbiology - Last 24 Hours (Table) 06/15/21 22:01 Urine Culture - Preliminary Urine,Catheterized Assessment and Plan (1) Hypertension Current Visit: Yes Status: Acute Code(s): I10 - ESSENTIAL (PRIMARY) HYPERTENSION SNOMED Code(s): 51918015 (2) Hyperlipidemia Current Visit: Yes Status: Acute Code(s): E78.5 - HYPERLIPIDEMIA, UNSPECIFIED SNOMED Code(s): 83552249 (3) Fall Current Visit: Yes Status: Acute Code(s): W19.XXXA - UNSPECIFIED FALL, INITIAL ENCOUNTER SNOMED Code(s): 7679158 (4) Fracture, intertrochanteric, right femur Current Visit: Yes Status: Acute Code(s): S72.141A - DISPLACED INTERTROCHANTERIC FRACTURE OF RIGHT FEMUR, INIT SNOMED Code(s): 382175847 (5) Fracture of lumbar vertebra, compression Current Visit: No Status: Acute Code(s): S32.000A - WEDGE COMPRESSION FRACTURE OF UNSP LUMBAR VERTEBRA, INIT SNOMED Code(s): 388879221 Plan: 1. Continue pain control 2. Anticoagulation by internal medicine for treatment of PE. Currently on Heparin drip. 3. Continue physical therapy and ambulation. Weightbearing as tolerated to the right lower extremity. 4. Anticipate discharge to skilled rehab when medically stable.
--- NOTE | 2021-06-16 14:33 | P.PN ---
Subjective Progress Note Date: 06/16/21 This is a pleasant 89-year-old female evaluated today with her daughter at the bedside post op nailing of right hip on June 14. Patient lives in an assisted living facility and had suffered a fall, also per dtr has urinary frequency which is chronic. Pt denies any symptoms of chest pain, cough, shortne ss of breath, urinary discomfort. Does complain of numbness and tingling bilateral lower extremities. Ateam this morning due to onset of left chest pain which patient is a poor historian and is unable to give much detail about event. Per RN patients symptoms resolved with maalox and protonix, however troponin came back elevated at 0.125, 0.119 additionally d-dimer was elevated at 1.86. Cardiology started the patient on a heparin drip. Chest CTA positive for Right lower lobe posterior PE with no obvious signs of right heart strain however this was suboptimally assessed. There is also small to moderate left-sided pleural effusion with adjacent subsegmental pulmonary atelectasis with suspected complete collapse of the middle lobe with air bronchograms within, possibly chronic. Bilateral venous doppler negative for DVT. Pt underwent an echocardiogram today which shows an EF 55-60% with mild to moderate aortic valve sclerosis, mild aortic stenosis, moderate tricuspid regurgitation, moderate pulmonary hypertension, moderate mitral annular calcification. Family present at bedside, all questions were answered. Labs reviewed: White blood cell 7.48, hemoglobin 8.3, sodium 133, potassium 3.4, glucose 113 Vitals reviewed: Temp 97.6, pulse ox 93, blood pressure 151/77 and 98% on room air. ROS Constitutional: Denied any fatigue denied any fever. Cardio vascular: denied any chest pain, palpitations Gastrointestinal: denied any nausea vomiting Pulmonary: Denied any shortness of breath cough Neurologic denied any new focal deficits All inpatient medications were reviewed and appropriate changes in these medications as dictated in the interval history and assessment and plan. PHYSICAL EXAMINATION: GENERAL: The patient is alert and oriented x1-2, not in any acute distress. Well developed, well nourished. HEENT: Pupils are round and equally reacting to light. EOMI. No scleral icterus. No conjunctival pallor. Normocephalic, atraumatic. No pharyngeal erythema. No thyromegaly. CARDIOVASCULAR: S1 and S2 present. No murmurs, rubs, or gallops. PULMONARY: Chest is clear to auscultation, no wheezing or crackles. ABDOMEN: Soft, nondistended, suprapubic tenderness to palpation slightly, normoactive bowel sounds. No palpable organomegaly. MUSCULOSKELETAL: No joint swelling or deformity. EXTREMITIES: No cyanosis, clubbing, or pedal edema. NEUROLOGICAL: Gross neurological examination did not reveal any focal deficits. SKIN: No rashes. Assessment and plan Assessment Postop day #2 right hip nailing status post fall at home with right hip fracture Acute right lower lobe PE, Doppler negative for DVT Abnormal troponins secondary to above ACS ruled out by cardiology Rule out UTI with suprapubic tenderness, culture pending Hypokalemia secondary to poor oral intake Moderate pulmonary hypertension Hyponatremia Hypertension Hypothyroidism Depression GI prophylaxis: Protonix, Maalox DVT prophylaxis: Heparin gtt DO NOT RESUSCITATE Plan Transition to oral anticoagulation tomorrow Replace electrolytes as needed Continue IV rocephin, urine culture pending Cardiology consultation PT/OT Subacute rehab on discharge Thank you kindly for this consultation we will continue to follow along this hospitalization. Objective - Vital Signs Vital signs: Vital Signs Temp 97.6 F 06/16/21 11:04 Pulse 93 06/16/21 11:04 Resp 18 06/16/21 11:04 BP 151/77 06/16/21 11:04 Pulse Ox 98 06/16/21 11:04 Intake & Output 06/15/21 06/16/21 06/16/21 18:59 06:59 18:59 Intake Total 650 35.676 Output Total 200 350 Balance 450 -350 35.676 Intake: IV 20 Invasive Line 2 10 Invasive Line 3 10 Intake, IV Titration 15.676 Amount Heparin Sod,Pork in 0.45% 15.676 NaCl 25,000 unit In 0.45 % NaCl 1 250ml.bag @ 12 UNITS/KG/HR 7.348 mls/hr IV .Q24H [facility] Rx#: [id number] Oral 650 Output: Urine 200 350 Other: Voiding Method Indwelling Catheter Indwelling Catheter - Labs CBC & Chem 7: 06/16/21 03:37 06/16/21 03:37 Labs: Abnormal Lab Results - Last 24 Hours (Table) 06/16/21 06/16/21 06/16/21 Range/Units 03:24 03:37 03:37 RBC 2.61 L (4.10-5.20) X 10*6/uL Hgb 8.3 L (12.0-15.0) g/dL Hct 26.7 L (37.2-46.3) % MCV 102.3 H (80.0-97.0) fL MCHC 31.1 L (32.0-37.0) g/dL Lymphocytes # 0.77 L (0.90-5.00) X 10*3/uL D-Dimer (<0.60) mg/L FEU Sodium 133 L (135-145) mmol/L Potassium 3.4 L (3.5-5.5) mmol/L Carbon Dioxide 18.1 L (20.0-27.5) mmol/L Creatinine 0.5 L (0.6-1.5) mg/dL BUN/Creatinine Ratio 31.60 H (12.00-20.00) Ratio Glucose 113 H (70-110) mg/dL POC Glucose (mg/dL) 126 H (75-99) mg/dL Calcium 8.2 L (8.7-10.3) mg/dL Troponin I (0.000-0.034) ng/mL Total Protein 4.9 L (6.2-8.2) g/dL Albumin 2.9 L (3.8-4.9) g/dL Albumin/Globulin Ratio 1.45 L (1.60-3.17) g/dL 06/16/21 06/16/21 06/16/21 Range/Units 03:37 04:46 06:14 RBC (4.10-5.20) X 10*6/uL Hgb (12.0-15.0) g/dL Hct (37.2-46.3) % MCV (80.0-97.0) fL MCHC (32.0-37.0) g/dL Lymphocytes # (0.90-5.00) X 10*3/uL D-Dimer 1.86 H (<0.60) mg/L FEU Sodium (135-145) mmol/L Potassium (3.5-5.5) mmol/L Carbon Dioxide (20.0-27.5) mmol/L Creatinine (0.6-1.5) mg/dL BUN/Creatinine Ratio (12.00-20.00) Ratio Glucose (70-110) mg/dL POC Glucose (mg/dL) (75-99) mg/dL Calcium (8.7-10.3) mg/dL Troponin I 0.125 H* 0.119 H* (0.000-0.034) ng/mL Total Protein (6.2-8.2) g/dL Albumin (3.8-4.9) g/dL Albumin/Globulin Ratio (1.60-3.17) g/dL Microbiology - Last 24 Hours (Table) 06/15/21 22:01 Urine Culture - Preliminary Urine,Catheterized Assessment and Plan Time with Patient: Greater than 30
[2021-06-16] MEDS ORDERED: lisinopriL 10 MG TAB PO SCH (17:00)
[2021-06-16] MEDS: MAGNESIUM HYDROXIDE 2,400 MG/10 ML CUP PO PRN (17:22)
[2021-06-16] MEDS: SENNOSIDES-DOCUSATE SODIUM 1 EACH TAB PO SCH (20:19)
[2021-06-17] MEDS: DIAZEPAM 5 MG/ML 2 ML INJ IVP PRN (01:45)
[2021-06-17] MEDS: SODIUM CHLORIDE 0.9% 1,000 ML IV SCH ×2 (02:18→04:23)
[2021-06-17] MEDS: PANTOPRAZOLE 40 MG TABLET PO SCH (04:19)
[2021-06-17] MEDS: HYDROcodone/APAP 5-325MG 1 EACH TAB PO PRN ×3 (04:19→18:03)
[2021-06-17] MEDS: LEVOTHYROXINE 88 MCG TAB PO SCH (04:19)
[2021-06-17 08:29] LABS: Basophils % (A) 0 %; Eosinophils # (A) 0.2 k/uL (0-0.7); Eosinophils % (A) 3 %; HCT 25.4 % (34.0-46.0); Lymphocytes # (A) 0.7 k/uL (1.0-4.8); Lymphocytes % (A) 10 %; MCH 33.4 pg (25.0-35.0); MCHC 33.1 g/dL (31.0-37.0); MCV 101.1 fL (80.0-100.0); Mean Platelet Volume 7.7; Monocytes # (A) 0.4 k/uL (0-1.0); Monocytes % (A) 6 %; Neutrophils # (A) 5.1 k/uL (1.3-7.7); Neutrophils % (A) 80 %; Platelet Count 197 k/uL (150-450); RBC 2.51 m/uL (3.80-5.40); RDW 12.7 % (11.5-15.5); WBC 6.4 k/uL (3.8-10.6)
--- NOTE | 2021-06-17 08:29 | P.PN ---
Subjective Progress Note Date: 06/17/21 Principal diagnosis: Status post cephalomedullary nailing right hip This is a 89 year-old female post cephalomedullary nailing right hip. This is post-op day 3. The patient was evaluated at the bedside today. The patient denies nausea, vomiting, abdominal pain, shortness of breath, and chest pain this morning. She states her pain is controlled at this time. She did have an episode of chest pain yesterday. An A-team was called and chest CTA was comple christofer. A right lower lobe PE was found and she was started on a Heparin drip. Troponins were also elevated. The patient has been seen by cardiology. Plan is to transition to oral anticoagulation today. Objective - Vital Signs Vital signs: Vital Signs Temp 97.8 F 06/17/21 04:00 Pulse 83 06/17/21 04:00 Resp 18 06/17/21 04:00 BP 148/78 06/17/21 04:00 Pulse Ox 99 06/17/21 04:00 Intake & Output 06/16/21 06/17/21 06/17/21 18:59 06:59 18:59 Intake Total 2105.676 162.207 Output Total 250 Balance 2105.676 -87.793 Intake: IV 990 Invasive Line 2 20 Invasive Line 3 20 Sodium Chloride 0.9% 1, 900 000 ml @ 75 mls/hr IV . [id number] [facility] Rx#:[id number] cefTRIAXone 1 gm In 50 Sodium Chloride 0.9% 50 ml @ 100 mls/hr IVPB Q24HR [facility] Rx#:[id number] Intake, IV Titration 15.676 162.207 Amount Heparin Sod,Pork in 0.45% 15.676 NaCl 25,000 unit In 0.45 % NaCl 1 250ml.bag @ 12 UNITS/KG/HR 7.348 mls/hr IV .Q24H [facility] Rx#: [id number] Heparin Sod,Pork in 0.45% 162.207 NaCl 25,000 unit In 0.45 % NaCl 1 250ml.bag @ 18 UNITS/KG/HR 11.022 mls/hr IV .[id number] [facility] Rx#: [id number] Oral 1100 Output: Urine 250 Other: Voiding Method Indwelling Catheter Indwelling Catheter - Exam The patient does not appear in acute distress. Alert and orientated x3. Dressing is clean, dry, and intact. Incision appears fine with no erythema or active drainage. Calf is soft and nontender. Good foot and ankle motion without difficulty. Sensation and circulatory status is intact. - Labs CBC & Chem 7: 06/17/21 07:56 06/16/21 03:37 Labs: Abnormal Lab Results - Last 24 Hours (Table) 06/16/21 06/16/21 06/16/21 Range/Units 03:37 03:37 15:12 RBC 2.61 L (4.10-5.20) X 10*6/uL Hgb 8.3 L (12.0-15.0) g/dL Hct 26.7 L (37.2-46.3) % MCV 102.3 H (80.0-97.0) fL MCHC 31.1 L (32.0-37.0) g/dL Lymphocytes # 0.77 L (0.90-5.00) X 10*3/uL APTT (22.0-30.0) sec Sodium 133 L (135-145) mmol/L Potassium 3.4 L (3.5-5.5) mmol/L Carbon Dioxide 18.1 L (20.0-27.5) mmol/L Creatinine 0.5 L (0.6-1.5) mg/dL BUN/Creatinine Ratio 31.60 H (12.00-20.00) Ratio Glucose 113 H (70-110) mg/dL Calcium 8.2 L (8.7-10.3) mg/dL Troponin I 0.082 H* (0.000-0.034) ng/mL Total Protein 4.9 L (6.2-8.2) g/dL Albumin 2.9 L (3.8-4.9) g/dL Albumin/Globulin Ratio 1.45 L (1.60-3.17) g/dL 06/16/21 Range/Units 15:12 RBC (4.10-5.20) X 10*6/uL Hgb (12.0-15.0) g/dL Hct (37.2-46.3) % MCV (80.0-97.0) fL MCHC (32.0-37.0) g/dL Lymphocytes # (0.90-5.00) X 10*3/uL APTT 60.3 H (22.0-30.0) sec Sodium (135-145) mmol/L Potassium (3.5-5.5) mmol/L Carbon Dioxide (20.0-27.5) mmol/L Creatinine (0.6-1.5) mg/dL BUN/Creatinine Ratio (12.00-20.00) Ratio Glucose (70-110) mg/dL Calcium (8.7-10.3) mg/dL Troponin I (0.000-0.034) ng/mL Total Protein (6.2-8.2) g/dL Albumin (3.8-4.9) g/dL Albumin/Globulin Ratio (1.60-3.17) g/dL Microbiology - Last 24 Hours (Table) 06/15/21 12:48 Blood Culture - Preliminary Blood No Growth after 24 hours Assessment and Plan (1) Hypertension Current Visit: Yes Status: Acute Code(s): I10 - ESSENTIAL (PRIMARY) HYP ERTENSION SNOMED Code(s): 22380125 (2) Hyperlipidemia Current Visit: Yes Status: Acute Code(s): E78.5 - HYPERLIPIDEMIA, UNSPECIFIED SNOMED Code(s): 43769661 (3) Fall Current Visit: Yes Status: Acute Code(s): W19.XXXA - UNSPECIFIED FALL, INITIAL ENCOUNTER SNOMED Code(s): 7776020 (4) Fracture, intertrochanteric, right femur Current Visit: Yes Status: Acute Code(s): S72.141A - DISPLACED INTERTROCHANTERIC FRACTURE OF RIGHT FEMUR, INIT SNOMED Code(s): 338423887 (5) Fracture of lumbar vertebra, compression Current Visit: No Status: Acute Code(s): S32.000A - WEDGE COMPRESSION FRACTURE OF UNSP LUMBAR VERTEBRA, INIT SNOMED Code(s): 169678318 Plan: 1. Continue pain control 2. Anticoagulation by internal medicine for treatment of PE. Currently on Heparin drip, transition to oral anticoagulation today. 3. Continue physical therapy and ambulation. Weightbearing as tolerated to the right lower extremity. 4. Anticipate discharge to skilled rehab when medically stable.
[2021-06-17 08:38] LABS: HGB 8.4 gm/dL (11.4-16.0)
[2021-06-17 08:52] LABS: INR 0.9 (<1.2); Prothrombin Time 9.9 sec (9.0-12.0)
[2021-06-17] MEDS: SERTRALINE 50 MG TAB PO SCH (08:53)
[2021-06-17] MEDS: LOSARTAN 25 MG TAB PO SCH (08:53)
[2021-06-17 08:54] LABS: African American GFR (CKD) >90 (>60 ml/min/1.73 sqM); Anion Gap 3 mmol/L; Blood Urea Nitrogen 14 mg/dL (7-17); Calcium 7.8 mg/dL (8.4-10.2); Carbon Dioxide 24 mmol/L (22-30); Chloride 104 mmol/L (98-107); Glucose 101 mg/dL (74-99); Non-African American GFR(CKD) 83 (>60 ml/min/1.73 sqM); Sodium 131 mmol/L (137-145)
[2021-06-17] MEDS: MULTIVITAMINS, THERA 1 EACH TAB PO SCH (10:00)
[2021-06-17] MEDS: APIXABAN 2.5 MG TABLET PO SCH ×2 (10:00→20:02)
--- NOTE | 2021-06-17 12:19 | P.PN ---
Subjective Progress Note Date: 06/17/21 HISTORY OF PRESENT ILLNESS: This is a 89 year old female with a past medical history significant for depression and hypothyroidism. 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 We have been asked to see the patient in consultation for abnormal troponins. Patient examined at the bedside. Patient is slightly confused at the time of examination. Patient was admitted to the hospital secondary to a fall. She was found to have a right hip fracture. Patient underwent nailing of right hip fracture on 06/14/2021 with orthopedics. An A team was called this morning secondary to chest pain and mild shortness of breath. Patient underwent CTA of the chest revealing right lower lobe posterior pulmonary emboli. The patient was started on IV heparin. Patient currently denies chest pain or pressure. She denies shortness of breath. Vital signs are stable. Patient is slightly hy pertensive with a recent blood pressure 151/77. * EKG reveals sinus mechanism with no signs of acute ischemia * Chest xray there is some chronic elevation of the right diaphragm that could relate to some paralysis. No heart failure. * Venous Doppler: Negative for DVT bilaterally * Chest CTA: Right lower lobe posterior pulmonary emboli * Laboratory data: WBC 7.48. Hemoglobin 8.3. Platelet count 178. Sodium 133. Potassium 3.4. BUN 15. Creatinine 0.5. Troponin 0.125. 0.119. * Current home cardiac medications include none 06/17/2021 Patient examined this morning at the bedside. Patient denies chest pain or pressure. She denies shortness of breath. She remains on IV heparin. Echocardiogram completed revealing ejection fraction 55-60%, right ventricle mildly enlarged, mild aortic stenosis, moderate tricuspid regurgitation, mild mitral regurgitation, and moderate pulmonary hypertension PHYSICAL EXAM: VITAL SIGNS: Reviewed. GENERAL: Well-developed in no acute distress. HEENT: Head is normocephalic. Pupils are equal, round. Sclerae anicteric. Mucous membranes of the mouth are moist. Neck supple. No JVD or thyromegaly LUNGS: Respirations even and unlabored. Lungs essentially clear to auscultation bilaterally. HEART: Regular rate and rhythm. S1 and S2 heard. ABDOMEN: Soft. Nondistended. Nontender. EXTREMITIES: No clubbing or cyanosis. Peripheral pulses intact. No lower extremity edema NEUROLOGIC: Awake and alert. Oriented x 3. ASSESSMENT: Right hip fracture, status post fall at home, status post nailing Acute right lower lobe PE Abnormal troponins, secondary to above, no evidence of acute coronary syndrome Hypertension Hypothyroidism Depression PLAN: Continue current cardiac medications Discontinue IV heparin. Begin oral anticoagulation. Dr. Lynch would like the patient started on 7.5 mg of Eliquis twice a day and then decrease to 2.5 mg twice a day after 1 week Further recommendations pending patient's course Nurse practitioner note has been reviewed by physician. Signing provider agrees with the documented findings, assessment, and plan of care. Objective - Vital Signs Vital signs: Vital Signs Temp 98 F 06/17/21 08:49 Pulse 93 06/17/21 08:49 Resp 17 06/17/21 08:49 BP 148/81 06/17/21 08:49 Pulse Ox 94 L 06/17/21 08:49 Intake & Output 06/16/21 06/17/21 06/17/21 18:59 06:59 18:59 Intake Total 2105.676 162.207 660 Output Total 250 425 Balance 2105.676 -87.793 235 Intake: IV 990 Invasive Line 2 20 Invasive Line 3 20 Sodium Chloride 0.9% 1, 900 000 ml @ 75 mls/hr IV . [id number] [facility] Rx#:[id number] cefTRIAXone 1 gm In 50 Sodium Chloride 0.9% 50 ml @ 100 mls/hr IVPB Q24HR [facility] Rx#:[id number] Intake, IV Titration 15.676 162.207 Amount Heparin Sod,Pork in 0.45% 15.676 NaCl 25,000 unit In 0.45 % NaCl 1 250ml.bag @ 12 UNITS/KG/HR 7.348 mls/hr IV .Q24H [facility] Rx#: [id number] Heparin Sod,Pork in 0.45% 162.207 NaCl 25,000 unit In 0.45 % NaCl 1 250ml.bag @ 18 UNITS/KG/HR 11.022 mls/hr IV .[id number] [facility] Rx#: [id number] Oral 1100 660 Output: Urine 250 425 Other: Voiding Method Indwelling Catheter Indwelling Catheter Indwelling Catheter - Labs CBC & Chem 7: 06/17/21 07:56 06/17/21 07:56 Labs: Abnormal Lab Results - Last 24 Hours (Table) 06/16/21 06/16/21 06/17/21 Range/Units 15:12 15:12 07:56 RBC 2.51 L (3.80-5.40) m/uL Hgb 8.4 L D (11.4-16.0) gm/dL Hct 25.4 L (34.0-46.0) % MCV 101.1 H (80.0-100.0) fL Lymphocytes # 0.7 L (1.0-4.8) k/uL APTT 60.3 H (22.0-30.0) sec Sodium (137-145) mmol/L Glucose (74-99) mg/dL Calcium (8.4-10.2) mg/dL Troponin I 0.082 H* (0.000-0.034) ng/mL 06/17/21 06/17/21 Range/Units 07:56 07:56 RBC (3.80-5.40) m/uL Hgb (11.4-16.0) gm/dL Hct (34.0-46.0) % MCV (80.0-100.0) fL Lymphocytes # (1.0-4.8) k/uL APTT 67.2 H (22.0-30.0) sec Sodium 131 L (137-145) mmol/L Glucose 101 H (74-99) mg/dL Calcium 7.8 L (8.4-10.2) mg/dL Troponin I (0.000-0.034) ng/mL Microbiology - Last 24 Hours (Table) 06/15/21 12:48 Blood Culture - Preliminary Blood No Growth after 24 hours
[2021-06-17] MEDS: HYDROmorphone 1 MG/ML 1 ML SYRINGE IVP PRN ×2 (12:40→20:03)
--- NOTE | 2021-06-17 13:50 | XR ---
EXAMINATION TYPE: XR chest 1V DATE OF EXAM: 06/17/2021 COMPARISON: Chest x-ray dated 06/13/2021, CT 06/16/2021 HISTORY: Degenerative heart failure TECHNIQUE: Single frontal view of the chest is obtained. FINDINGS: Probable subsegmental basilar atelectatic changes are present. The heart is enlarged. Aort a is dense. Right hemidiaphragm remains elevated. Vertebroplasty changes are noted in the visualized spine, postop change noted in the lumbar spine. No evident pneumothorax or pleural effusion. Retrocar diac density is consistent with hiatal hernia and partial intrathoracic stomach. Correlate for pulmon catarino artery hypertension, pulmonary artery is enlarged. Fracture of the left proximal humerus noted. IMPRESSION: Probable basilar atelectasis or scarring. Heart size may be accentuated by rotation.
[2021-06-17] MEDS ORDERED: FUROSEMIDE 10 MG/ML 2 ML VIAL IV ONE (14:39)
--- NOTE | 2021-06-17 14:43 | P.PN ---
Subjective Progress Note Date: 06/17/21 This is a pleasant 89-year-old female evaluated today with her daughter at the bedside post op nailing of right hip on June 14. Patient lives in an assisted living facility and had suffered a fall, also per dtr has urinary frequency which is chronic. Pt denies any symptoms of chest pain, cough, shortne ss of breath, urinary discomfort. Does complain of numbness and tingling bilateral lower extremities. Ateam this morning due to onset of left chest pain which patient is a poor historian and is unable to give much detail about event. Per RN patients symptoms resolved with maalox and protonix, however troponin came back elevated at 0.125, 0.119 additionally d-dimer was elevated at 1.86. Cardiology started the patient on a heparin drip. Chest CTA positive for Right lower lobe posterior PE with no obvious signs of right heart strain however this was suboptimally assessed. There is also small to moderate left-sided pleural effusion with adjacent subsegmental pulmonary atelectasis with suspected complete collapse of the middle lobe with air bronchograms within, possibly chronic. Bilateral venous doppler negative for DVT. Pt underwent an echocardiogram today which shows an EF 55-60% with mild to moderate aortic valve sclerosis, mild aortic stenosis, moderate tricuspid regurgitation, moderate pulmonary hypertension, moderate mitral annular calcification. Family present at bedside, all questions were answered. Labs reviewed: White blood cell 7.48, hemoglobin 8.3, sodium 133, potassium 3.4, glucose 113 Vitals reviewed: Temp 97.6, pulse ox 93, blood pressure 151/77 and 98% on room air. 06/17/2021 Patient evaluated this morning she is quite fatigued. Is completing of some pain to the right hip. She denies any numbness or tingling. Patient was hypoxic this morning 89% on room air and is currently on 2 L nasal cannula with oxygen saturation of 94%. There are some faint crackles in the bases. Chest x- ray shows probable basilar atelectasis or scarring, correlate for pulmonary a rtery hypertension, the pulmonary artery is large. Fracture of the left proximal humerus noted. Upon personal review of the xray there appears to be large stool burden, patient is getting milk of mag as well as 2 senna tablets daily. Confirming with family when last BM was. Patient was transitioned to eliquis today for PE. ROS Constitutional: Denied any fatigue denied any fever. Cardio vascular: denied any chest pain, palpitations Gastrointestinal: denied any nausea vomiting Pulmonary: Denied any shortness of breath cough Neurologic denied any new focal deficits All inpatient medications were reviewed and appropriate changes in these medications as dictated in the interval history and assessment and plan. PHYSICAL EXAMINATION: GENERAL: The patient is alert and oriented x1-2, not in any acute distress. Well developed, well nourished. HEENT: Pupils are round and equally reacting to light. EOMI. No scleral icterus. No conjunctival pallor. Normocephalic, atraumatic. No pharyngeal erythema. No thyromegaly. CARDIOVASCULAR: S1 and S2 present. No murmurs, rubs, or gallops. PULMONARY: Faint bibasilar crackles ABDOMEN: Soft, nondistended, suprapubic tenderness to palpation slightly, normoactive bowel sounds. No palpable organomegaly. MUSCULOSKELETAL: No joint swelling or deformity. EXTREMITIES: No cyanosis, clubbing, or pedal edema. NEUROLOGICAL: Gross neurological examination did not reveal any focal deficits. SKIN: No rashes. Assessment and plan Assessment Postop day #3 right hip nailing status post fall at home with right hip fracture Acute right lower lobe PE, Doppler negative for DVT Constipation post operatively, decreased narcotics, bowel regmine in place Abnormal troponins secondary to above ACS ruled out by cardiology Rule out UTI, patient received 3 days of rocephin, culture negative no need for further antibiotics, there is no WBC either. Hypokalemia, resolved Moderate pulmonary hypertension Hyponatremia possibly hypervolemic, blood pressure slightly elevated will give a small dose of IV lasix Hypertension Hypothyroidism Depression GI prophylaxis: Protonix, Maalox DVT prophylaxis: Heparin gtt DO NOT RESUSCITATE Plan IV lasix x 1 Stop IV fluids Encourage oral intake Encourage IS Follow up xray left arm Replace electrolytes as needed Cardiology consultation Repeat labs tomorrow PT/OT Subacute rehab on discharge Thank you kindly for this consultation we will continue to follow along this hospitalization. Objective - Vital Signs Vital signs: Vital Signs Temp 98 F 06/17/21 08:49 Pulse 93 06/17/21 08:49 Resp 17 06/17/21 08:49 BP 148/81 06/17/21 08:49 Pulse Ox 94 L 06/17/21 08:49 Intake & Output 06/16/21 06/17/21 06/17/21 18:59 06:59 18:59 Intake Total 2105.676 162.207 660 Output Total 250 425 Balance 2105.676 -87.793 235 Intake: IV 990 Invasive Line 2 20 Invasive Line 3 20 Sodium Chloride 0.9% 1, 900 000 ml @ 75 mls/hr IV . [id number] [facility] Rx#:[id number] cefTRIAXone 1 gm In 50 Sodium Chloride 0.9% 50 ml @ 100 mls/hr IVPB Q24HR [facility] Rx#:[id number] Intake, IV Titration 15.676 162.207 Amount Heparin Sod,Pork in 0.45% 15.676 NaCl 25,000 unit In 0.45 % NaCl 1 250ml.bag @ 12 UNITS/KG/HR 7.348 mls/hr IV .Q24H [facility] Rx#: [id number] Heparin Sod,Pork in 0.45% 162.207 NaCl 25,000 unit In 0.45 % NaCl 1 250ml.bag @ 18 UNITS/KG/HR 11.022 mls/hr IV .[id number] [facility] Rx#: [id number] Oral 1100 660 Output: Urine 250 425 Other: Voiding Method Indwelling Catheter Indwelling Catheter Indwelling Catheter - Labs CBC & Chem 7: 06/17/21 07:56 06/17/21 07:56 Labs: Abnormal Lab Results - Last 24 Hours (Table) 06/16/21 06/16/21 06/17/21 Range/Units 15:12 15:12 07:56 RBC 2.51 L (3.80-5.40) m/uL Hgb 8.4 L D (11.4-16.0) gm/dL Hct 25.4 L (34.0-46.0) % MCV 101.1 H (80.0-100.0) fL Lymphocytes # 0.7 L (1.0-4.8) k/uL APTT 60.3 H (22.0-30.0) sec Sodium (137-145) mmol/L Glucose (74-99) mg/dL Calcium (8.4-10.2) mg/dL Troponin I 0.082 H* (0.000-0.034) ng/mL 06/17/21 06/17/21 Range/Units 07:56 07:56 RBC (3.80-5.40) m/uL Hgb (11.4-16.0) gm/dL Hct (34.0-46.0) % MCV (80.0-100.0) fL Lymphocytes # (1.0-4.8) k/uL APTT 67.2 H (22.0-30.0) sec Sodium 131 L (137-145) mmol/L Glucose 101 H (74-99) mg/dL Calcium 7.8 L (8.4-10.2) mg/dL Troponin I (0.000-0.034) ng/mL Microbiology - Last 24 Hours (Table) 06/15/21 12:48 Blood Culture - Preliminary Blood No Growth after 24 hours Assessment and Plan Time with Patient: Greater than 30
--- NOTE | 2021-06-17 16:24 | XR ---
EXAMINATION TYPE: XR humerus LT DATE OF EXAM: 06/17/2021 COMPARISON: Chest radiograph same day. Also, chest x-ray 03/19/2017 HISTORY: 89-year-old female follow-up from chest x-ray TECHNIQUE: 2 views FINDINGS: There appears to be an impacted surgical neck fracture deformity of the proximal humerus. This was pr esent back on 2016 as well. Marginal spurring inferior humeral head suggests some underlying degenera tive change of the glenoid humeral joint. Slight widening at the AC joint probably sequela of old inj ury. No acute fracture seen. IMPRESSION: Chronic, healed impacted surgical neck fracture deformity of the proximal left humerus and some secon olaf glenohumeral joint OA. Chest reported separately.
[2021-06-17] MEDS: SENNOSIDES-DOCUSATE SODIUM 1 EACH TAB PO SCH (20:02)
[2021-06-17] MEDS: MAGNESIUM HYDROXIDE 2,400 MG/10 ML CUP PO PRN (20:03)
[2021-06-18] MEDS: HYDROmorphone 1 MG/ML 1 ML SYRINGE IVP PRN ×2 (04:25→11:40)
[2021-06-18 04:44] VITALS: RESP 18; TEMP 97.9
[2021-06-18] MEDS: LEVOTHYROXINE 88 MCG TAB PO SCH (06:31)
[2021-06-18] MEDS: PANTOPRAZOLE 40 MG TABLET PO SCH (06:31)
[2021-06-18 08:25] LABS: Calcium 7.6 mg/dL (8.4-10.2); Potassium 4.1 mmol/L (3.5-5.1)
--- NOTE | 2021-06-18 08:26 | P.DS ---
Providers Date of admission: 06/13/21 15:34 Expected date of discharge: 06/18/21 Attending physician: Xiomara Wang DO Consults: 06/13/21 15:34 Consult Physician Routine Consulting Provider: Vinny Smith Reason/Comments: Medical clearance for rt hip fracture Do you want consulting provider notified?: Already Contacted 06/16/21 04:41 Consult Physician Stat Consulting Provider: Ricardo Overton Consult Reason/Comments: Elevated troponin/chest pain Do you want consulting provider notified?: Already Contacted Primary care physician: Marva Benites - Discharge Diagnosis(es) (1) Hypertension Current Visit: Yes Status: Acute (2) Hyperlipidemia Current Visit: Yes Status: Acute (3) Fall Current Visit: Yes Status: Acute (4) Fracture, intertrochanteric, right femur Current Visit: Yes Status: Acute (5) Fracture of lumbar vertebra, compression Current Visit: No Status: Acute Hospital Course: This is an 89 year old female who presented to the hospital post fall at home and sustained a right hip fracture. The patient was cleared by medicine for surgery. The patient underwent a right hip cephalomedullary nailing on06/14/[address] Wang. The procedure was performed without complication.. The patient did develop a right lower lobe PE on her second post op day. She was started on Eliquis yesterday. Labs and vital signs are stable on the day of discharge. On the day of discharge the patient's hip incision is healing well. There is minimal erythema. There is no drainage noted at this time. There is minimal soft tissue swelling to the hip and thigh. The patient has full foot and ankle motion without difficulty or pain. Neurovascular status to the right lower extremity is intact. The patient is discharged to skilled rehab in stable condition. Pertinent Studies: Laboratory Tests 06/17/21 07:56 WBC 6.4 RBC 2.51 L Hgb 8.4 L D Hct 25.4 L MCV 101.1 H Lymphocytes # 0.7 L Patient Condition at Discharge: Stable Plan - Discharge Summary New Discharge Prescriptions: New HYDROcodone/APAP 5-325MG [Erwin 5] 1 each PO Q4HR PRN #30 tab PRN Reason: Pain No Action Sertraline [Zoloft] 50 mg PO DAILY Levothyroxine Sodium [Synthroid] 88 mcg PO DAILY Melatonin 10 mg PO HS traMADol HCL 50 mg PO Q8H PRN PRN Reason: Pain Discharge Medication List traMADol HCL 50 mg PO Q8H PRN 07/23/20 [History] Levothyroxine Sodium [Synthroid] 88 mcg PO DAILY 06/13/21 [History] Melatonin 10 mg PO HS 06/13/21 [History] Sertraline [Zoloft] 50 mg PO DAILY 06/13/21 [History] HYDROcodone/APAP 5-325MG [Erwin 5] 1 each PO Q4HR PRN #30 tab 06/18/21 [Rx] Follow up Appointment(s)/Referral(s): Xiomara Wang DO [Doctor of Osteopathic Medicine] - 2 Weeks Marva Benites MD [Primary Care Provider] - 1-2 days Activity/Diet/Wound Care/Special Instructions: Keep incisions clean and dry. Change dressings to right hip daily and as needed for drainage. Weightbearing as tolerated to the right lower extremity with walker. May shower with incisions uncovered if no drainage. Follow up with Dr. Wang in 2 weeks. Copay for Tree is $45. Discharge Disposition: TRANSFER TO SNF/ECF
[2021-06-18] MEDS: SERTRALINE 50 MG TAB PO SCH (10:01)
[2021-06-18] MEDS: LOSARTAN 25 MG TAB PO SCH (10:01)
[2021-06-18] MEDS: HYDROcodone/APAP 5-325MG 1 EACH TAB PO PRN (10:01)
[2021-06-18] MEDS: APIXABAN 2.5 MG TABLET PO SCH (10:01)
--- NOTE | 2021-06-18 12:28 | P.PN ---
Subjective Progress Note Date: 06/18/21 HISTORY OF PRESENT ILLNESS: This is a 89 year old female with a past medical history significant for depression and hypothyroidism. Patient does not follow with a [facility]. We have been asked to see the patient in consultation for abnormal troponins. Patient examined at the bedside. Patient is slightly confused at the time of examination. Patient was admitted to the hospital secondary to a fall. She was found to have a right hip fracture. Patient underwent nailing of right hip fracture on 06/14/2021 with orthopedics. An A team was called this morning secondary to chest pain and mild shortness of breath. Patient underwent CTA of the chest revealing right lower lobe posterior pulmonary emboli. The patient was started on IV heparin. Patient currently denies chest pain or pressure. She denies shortness of breath. Vital signs are stable. Patient is slightly hy pertensive with a recent blood pressure 151/77. * EKG reveals sinus mechanism with no signs of acute ischemia * Chest xray there is some chronic elevation of the right diaphragm that could relate to some paralysis. No heart failure. * Venous Doppler: Negative for DVT bilaterally * Chest CTA: Right lower lobe posterior pulmonary emboli * Laboratory data: WBC 7.48. Hemoglobin 8.3. Platelet count 178. Sodium 133. Potassium 3.4. BUN 15. Creatinine 0.5. Troponin 0.125. 0.119. * Current home cardiac medications include none 06/17/2021 Patient examined this morning at the bedside. Patient denies chest pain or pressure. She denies shortness of breath. She remains on IV heparin. Echocardiogram completed revealing ejection fraction 55-60%, right ventricle mildly enlarged, mild aortic stenosis, moderate tricuspid regurgitation, mild mitral regurgitation, and moderate pulmonary hypertension 06/18/2021 Patient examined this morning at the bedside. Patient denies chest pain or pressure. Denies SOB. She has been started on Eliquis. Vital signs stable. PHYSICAL EXAM: VITAL SIGNS: Reviewed. GENERAL: Well-developed in no acute distress. HEENT: Head is normocephalic. Pupils are equal, round. Sclerae anicteric. Mucous membranes of the mouth are moist. Neck supple. No JVD or thyromegaly LUNGS: Respirations even and unlabored. Lungs essentially clear to auscultation bilaterally. HEART: Regular rate and rhythm. S1 and S2 heard. ABDOMEN: Soft. Nondistended. Nontender. EXTREMITIES: No clubbing or cyanosis. Peripheral pulses intact. No lower extremity edema NEUROLOGIC: Awake and alert. Oriented x 3. ASSESSMENT: Right hip fracture, status post fall at home, status post nailing Acute right lower lobe PE Abnormal troponins, secondary to above, no evidence of acute coronary syndrome Hypertension Hypothyroidism Depression PLAN: Continue current cardiac medications Continue 7.5 mg of Eliquis twice a day and then decrease to 2.5 mg twice a day after [address] Lynch Further recommendations pending patient's course Nurse practitioner note has been reviewed by physician. Signing provider agrees with the documented findings, assessment, and plan of care. Objective - Vital Signs Vital signs: Vital Signs Temp 97.9 F 06/18/21 04:00 Pulse 115 H 06/18/21 08:00 Resp 18 06/18/21 08:00 BP 133/64 06/18/21 08:00 Pulse Ox 96 06/18/21 08:00 Intake & Output 06/17/21 06/18/21 06/18/21 18:59 06:59 18:59 Intake Total 1080 180 Output Total 1075 300 Balance 5 -300 180 Intake: Oral 1080 180 Output: Urine 1075 300 Other: Voiding Method Indwelling Catheter Indwelling Catheter Indwelling Catheter - Labs CBC & Chem 7: 06/17/21 07:56 06/18/21 07:49 Labs: Abnormal Lab Results - Last 24 Hours (Table) 06/18/21 Range/Units 07:49 Sodium 128 L (137-145) mmol/L Calcium 7.6 L (8.4-10.2) mg/dL Microbiology - Last 24 Hours (Table) 06/15/21 12:48 Blood Culture - Preliminary Blood No Growth after 48 hours 06/15/21 22:01 Urine Culture - Final Urine,Catheterized
[2021-06-18 12:47] VITALS: BP 135/72; PULSE 100
--- NOTE | 2021-06-18 13:21 | P.PN ---
Subjective Progress Note Date: 06/18/21 This is a pleasant 89-year-old female evaluated today with her daughter at the bedside post op nailing of right hip on June 14. Patient lives in an assisted living facility and had suffered a fall, also per dtr has urinary frequency which is chronic. Pt denies any symptoms of chest pain, cough, shortne ss of breath, urinary discomfort. Does complain of numbness and tingling bilateral lower extremities. Ateam this morning due to onset of left chest pain which patient is a poor historian and is unable to give much detail about event. Per RN patients symptoms resolved with maalox and protonix, however troponin came back elevated at 0.125, 0.119 additionally d-dimer was elevated at 1.86. Cardiology started the patient on a heparin drip. Chest CTA positive for Right lower lobe posterior PE with no obvious signs of right heart strain however this was suboptimally assessed. There is also small to moderate left-sided pleural effusion with adjacent subsegmental pulmonary atelectasis with suspected complete collapse of the middle lobe with air bronchograms within, possibly chronic. Bilateral venous doppler negative for DVT. Pt underwent an echocardiogram today which shows an EF 55-60% with mild to moderate aortic valve sclerosis, mild aortic stenosis, moderate tricuspid regurgitation, moderate pulmonary hypertension, moderate mitral annular calcification. Family present at bedside, all questions were answered. Labs reviewed: White blood cell 7.48, hemoglobin 8.3, sodium 133, potassium 3.4, glucose 113 Vitals reviewed: Temp 97.6, pulse ox 93, blood pressure 151/77 and 98% on room air. 06/17/2021 Patient evaluated this morning she is quite fatigued. Is completing of some pain to the right hip. She denies any numbness or tingling. Patient was hypoxic this morning 89% on room air and is currently on 2 L nasal cannula with oxygen saturation of 94%. There are some faint crackles in the bases. Chest x- ray shows probable basilar atelectasis or scarring, correlate for pulmonary a rtery hypertension, the pulmonary artery is large. Fracture of the left proximal humerus noted. Upon personal review of the xray there appears to be large stool burden, patient is getting milk of mag as well as 2 senna tablets daily. Confirming with family when last BM was. Patient was transitioned to eliquis today for PE. 06/18/2021 Patient sitting up in the chair today her mentation has improved from yesterday. She seems more awake and alert. She is complaining of significant pain to her right hip is currently on a combination of [place] and Ultram which can be alternated. Per family she has not had a BM in 1 week. She is receiving milk of mag and senna for bowel regimine. Indwelling Steward catheter in place with urine clear yellow. Abdomen is soft and nontender she is passing gas has positive bowel sounds. Currently denies any chest pain cough or shortness of breath. She denies any nausea vomiting. Denies any headache dizziness or lightheadedness. Lung sounds have improved from yesterday with increased aeration today received a one-time dose of IV Lasix yesterday. Sodium today 128, we will recheck this tomorrow and recommended 1500 mL fluid restriction. Continue on eliquis 7.5 mg by mouth twice a day for one week and transition to eliquis 2.5 mg by mouth twice a day. Patient can be discharge to rehab today from a medical standpoint. Recheck labs and continue current medications. ROS Constitutional: Denied any fatigue denied any fever. Cardio vascular: denied any chest pain, palpitations Gastrointestinal: denied any nausea vomiting Pulmonary: Denied any shortness of breath cough Neurologic denied any new focal deficits All inpatient medications were reviewed and appropriate changes in these medications as dictated in the interval history and assessment and plan. PHYSICAL EXAMINATION: GENERAL: The patient is alert and oriented x1-2, not in any acute distress. Well developed, well nourished. HEENT: Pupils are round and equally reacting to light. EOMI. No scleral icterus. No conjunctival pallor. Normocephalic, atraumatic. No pharyngeal erythema. No thyromegaly. CARDIOVASCULAR: S1 and S2 present. No murmurs, rubs, or gallops. PULMONARY: Increased aeration ABDOMEN: Soft, nondistended, nontender, normoactive bowel sounds. No palpable organomegaly. MUSCULOSKELETAL: No joint swelling or deformity. EXTREMITIES: No cyanosis, clubbing, or pedal edema. NEUROLOGICAL: Gross neurological examination did not reveal any focal deficits. SKIN: No rashes. Assessment and plan Assessment Postop day #4 right hip nailing status post fall at home with right hip fracture Acute right lower lobe PE, Doppler negative for DVT Constipation post operatively, decreased narcotics, bowel regmine in place Abnormal troponins secondary to above ACS ruled out by cardiology Rule out UTI, patient received 3 days of rocephin, culture negative no need for further antibiotics, there is no WBC either. Hypokalemia, resolved Moderate pulmonary hypertension Hyponatremia possibly hypervolemic, received a one time dose of lasix yesterday Hypertension Hypothyroidism Depression GI prophylaxis: Protonix, Maalox DVT prophylaxis: Heparin gtt DO NOT RESUSCITATE Plan 1500 mL fluid restriction Encourage oral intake Encourage IS Bowel regimine. PT/OT Subacute rehab on discharge Follow up labs outpatient Can be discharged to rehab from a medical standpoint. Thank you kindly for this consultation we will continue to follow along this hospitalization. Objective - Vital Signs Vital signs: Vital Signs Temp 97.9 F 06/18/21 04:00 Pulse 100 06/18/21 12:00 Resp 18 06/18/21 08:00 BP 135/72 06/18/21 12:00 Pulse Ox 96 06/18/21 12:00 Intake & Output 06/17/21 06/18/21 06/18/21 18:59 06:59 18:59 Intake Total 1080 180 Output Total 1075 300 Balance 5 -300 180 Intake: Oral 1080 180 Output: Urine 1075 300 Other: Voiding Method Indwelling Catheter Indwelling Catheter Indwelling Catheter - Labs CBC & Chem 7: 06/17/21 07:56 06/18/21 07:49 Labs: Abnormal Lab Results - Last 24 Hours (Table) 06/18/21 Range/Units 07:49 Sodium 128 L (137-145) mmol/L Calcium 7.6 L (8.4-10.2) mg/dL Microbiology - Last 24 Hours (Table) 06/15/21 12:48 Blood Culture - Preliminary Blood No Growth after 48 hours 06/15/21 22:01 Urine Culture - Final Urine,Catheterized
--- NOTE | 2021-06-18 16:08 | CDI ---
Documentation Clarification Form Date: 06/18/2021 03:45:56 PM From: Eleni Alegre RN, CCDS Admit Date: 06/13/2021 03:34:00 PM Patient Name: Makayla Segura Visit Number: [id number] Discharge Date: 06/18/2021 12:58:00 PM ATTENTION: The Clinical Documentation Specialists (CDI) and [facility] Coding Staff appreciate your assistance in clarifying documentation. Please respond to the clarification below the line at the bottom and electronically sign. The CDI & [facility] Coding staff will review the response and follow-up if needed. Please note: Queries are made part of the Legal Health Record. If you have any questions, please contact the author of this message via ITS. Dr. Xiomara Wang Pulmonary embolism is documented in the progress notes on 06/16/21 She had a Right hip Cephalo-medullary nailing of right hip secondary to ground-level fall. Additional clarification is requested regarding the relationship, if any, that exists between the diagnosis and the procedure. Patients Admitting Diagnosis: Left intertrochanteric hip fracture Post-Operative Diagnosis: same Procedure performed: Cephalo-medullary nailing of hip fracture History/Risk Factors: GERD, Hypertension, Thyroid Disorder, Hyperlipidemia Clinical Indicators: 89-year-old female present after ground-level fall resulting in an intertrochanteric fracture. She had repair on 06/14/21. 06/13 CXR: There is some chronic elevated right diaphragm that could relate to some paralysis. No heart failure 06/16 D-Dimer 186 On 06/16 She complained of chest pain and a chest CTA was complete showing right lower lobe posterior pulmonary emboli. No obvious signs of right cardiac strain. WBC 7.48, Hemoglobin 8.3. Platelet 178. 06/16 Echocardiogram: EF 55-60 %, right ventricle mildly enlarged, mild aortic stenosis, moderate tricuspid regurgitation, mild mitral regurgitation, and moderate pulmonary hypertension. Treatment: Telemetry Monitoring Heparin drip per orders 06/16 -06/17 Eliquis 7.5MG PO BID then decrease to 2.5 MG BID after 1 week. Lisinopril 10MG PO Daily What relationship, if any, exists between the diagnosis of acute right lower lobe pulmonary embolism and the procedure? [ ] Acute right lower lobe pulmonary embolism is a complication of surgical procedure [ ] Acute right lower lobe pulmonary embolism is an expected outcome of the surgical procedure [x ] Acute right lower lobe pulmonary embolism is related to patients co-morbid condition(s) of fall, other specify____immobilization 2/2 broken hip & not a complication of the procedure [ ] Other please specify ____ [ ] Unable to determine (Template Last Revised: June 2020) MTDD
== END 2021-06-18 12:58 | DRG 480 ==
LOC: EC 14:14 → 4SSUR 15:34 → 3SCARD 06-16 05:16
PROVIDERS: ADMIT Orthopaedic Surgery Hand Surgery; ATTEND Orthopaedic Surgery Hand Surgery
PROC: 0QS636Z Reposition Right Upper Femur with Intramedullary Internal Fixation Device, Percutaneous Approach (ICD-10-PCS; principal; 2021-06-14 12:40)
DX: S72.141A Displaced intertrochanteric fracture of right femur, initial encounter for closed fracture (principal); I26.99 Other pulmonary embolism without acute cor pulmonale; S32.009A Unspecified fracture of unspecified lumbar vertebra, initial encounter for closed fracture; E87.1 Hypo-osmolality and hyponatremia; J90 Pleural effusion, not elsewhere classified; J98.11 Atelectasis; N39.0 Urinary tract infection, site not specified; M48.54XA Collapsed vertebra, not elsewhere classified, thoracic region, initial encounter for fracture; F32.A Depression, unspecified; E03.9 Hypothyroidism, unspecified; E78.5 Hyperlipidemia, unspecified; Z20.822 Contact with and (suspected) exposure to COVID-19; E87.6 Hypokalemia; F41.9 Anxiety disorder, unspecified; I10 Essential (primary) hypertension; I27.20 Pulmonary hypertension, unspecified; I08.3 Combined rheumatic disorders of mitral, aortic and tricuspid valves; R07.9 Chest pain, unspecified; K21.9 Gastro-esophageal reflux disease without esophagitis; K59.03 Drug induced constipation; R09.02 Hypoxemia; T40.605A Adverse effect of unspecified narcotics, initial encounter; W18.30XA Fall on same level, unspecified, initial encounter; Y92.000 Kitchen of unspecified non-institutional (private) residence as the place of occurrence of the external cause; Z66 Do not resuscitate; Z79.01 Long term (current) use of anticoagulants; Z79.890 Hormone replacement therapy; Z79.899 Other long term (current) drug therapy; Z82.3 Family history of stroke; Z83.3 Family history of diabetes mellitus; Z98.1 Arthrodesis status; R77.8 Other specified abnormalities of plasma proteins
CPT/HCPCS: 36415; 71045; 71275; 73501; 73502; 80048; 80053; 81001; 84484; 85025; 85379; 85610; 85730; 87040; 87086; 87635; 93005; 93306; 93970; 96374; 99285